=== PATIENT | female | born 1975 | race Caucasian/White ===

== ENCOUNTER → 2021-04-30 09:13 | Outpatient (CLI) | payer OTHER, SELFPAY ==
[2021-04-30 20:10] LABS: SARS-CoV-2 RNA PCR Negative
== END ==
PROVIDERS: Visit Provider Internal Medicine Gastroenterology
DX: Z01.812 Encounter for preprocedural laboratory examination (principal); Z20.822 Contact with and (suspected) exposure to COVID-19
CPT/HCPCS: C9803; U0003; U0005

== ENCOUNTER 2021-05-03 02:04 | Day surgery (SDC) | payer OTHER, SELFPAY ==
[2021-04-24 15:44] VITALS: BMI 36.9
--- NOTE | 2021-05-03 08:04 | P.PNAN_ITS ---
Anes - Initial Pre Proc Eval Procedure: Operation Date: 05/03/21 11:15 Proposed Procedures p Screening Colonoscopy - Tate Schmidt MD Date/Time: 05/03/21 08:04 Surgeon: Tate Schmidt MD Pre Op Diagnosis: family hx of colon ca Patient Data Age: 45 Gender: F Height: 1.66 m Weight: 102.3 kg Allergies Allergy/AdvReac Type Severity Reaction Status Date / Time tramadol Allergy Itching Verified 05/03/21 10:13 gluten AdvReac Unknown GI Verified 04/24/21 15:39 BEE STING Allergy Unknown FACIAL Uncoded 04/24/21 15:39 SWELLING Home Medications Medication Instructions Recorded Confirmed Type calcium carbonate [Oyster Shell 500 mg PO DAILY 04/24/21 04/24/21 History Calcium 500] levothyroxine 150 mcg PO DAILY 04/24/21 04/24/21 History mirtazapine 15 mg PO DAILY 04/24/21 04/24/21 History naproxen 500 mg PO DAILY 04/24/21 04/24/21 History sumatriptan succinate 100 mg PO DAILY 04/24/21 04/24/21 History triamcinolone acetonide 0.5 applic TOPICAL DAILY 04/24/21 04/24/21 History Patient hx anesthesia problems: none Family hx anesthesia problems: none Results Review: All pre-operative results and documents have been reviewed as part of the pre-operative evaluation. [facility] Past Medical History Medical History (Updated 05/03/21 @ 08:04 by Harry Shearer DO) Multiple sclerosis Surgical History Surgical History (Updated 05/03/21 @ 08:04 by Harry Shearer DO) History of tubal ligation Social History Social History Smoking status: Never smoker Alcohol intake: never Substance use: current Substance use type: marijuana Other substance usage details: medical marijuana daily for MS Living arrangements: with family Spiritual care concerns: No Anes - Eval Final PreProcedure Day of Procedure 05/03/21 08:04 Patient weight: obese Heart: regular rate and rhythm Lungs: clear to auscultation and normal air movement Airway: Mallampati scale class II Neurological: alert and oriented Last oral intake: >/= 8 hours ASA classification: III Emergent: no Anesthetic plan: proceed Anesthesia type and monitoring: general GIVS and standard monitoring Results Review: All pre-operative results and documents have been reviewed as part of the pre-operative evaluation. Informed Consent: The patient's anesthetic plan and its attendant risks and benefits were discussed with the patient/family/POA. Questions were solicited and answers provided to the satisfaction of the patient/family/POA.
[2021-05-03 10:15] VITALS: BMI 36.1
[2021-05-03 10:17] VITALS: BP 151/88; PULSE 71; RESP 16; TEMP 36.2; O2SAT 100
[2021-05-03] MEDS: LACTATED RINGERS 1,000 ML 150 ML IV CONT (10:18)
--- NOTE | 2021-05-03 10:46 | PM.HPGS ---
History of Present Illness History of Present Illness Consent: Risks, benefits, and alternatives have been discussed and questions answered. Patient agrees to proceed with procedure. Chief complaint: family hx of colon ca Narrative: Magy Maya is a 45 year old female here for screening colonoscopy, last one 2 years ago but she is taking a medication for multiple sclerosis that increases risk of malignancy, her doctor recommended for her to get frequent colonoscopies. Review of Systems Constitutional: Constitutional: Denies headache(s) and Denies weakness Eyes: Eyes: Denies blurry vision ENT: Reports Normal hearing present, Denies headache(s) and Denies neck pain Cardiovascular: Cardiovascular: Denies chest pain and Denies dyspnea Respiratory: Respiratory: Denies dyspnea Gastrointestinal: Gastrointestinal: Reports no additional gastrointestinal complaints Genitourinary: Genitourinary: Denies dysuria Musculoskeletal: Musculoskeletal: Denies neck pain Integumentary/Breasts: Skin/Breast: Denies dry skin Neurologic: Reports Normal hearing present, Denies headache(s) and Denies weakness Psychiatric: Psychiatric: Denies anxiety Endocrine: Endocrine: Denies change in body appearance Hematologic/Lymphatic: Hematologic/Lymphatic: Denies easy bleeding Allergic/Immunologic: Allergic/Immunologic: Denies urticaria PMFSH Past Medical History Medical History (Updated 05/03/21 @ 10:47 by Tate Schmidt MD) Colon cancer screening Multiple sclerosis Surgical History Surgical History (Updated 05/03/21 @ 08:04 by Harry Shearer DO) History of tubal ligation Social History Social History Smoking status: Never smoker Alcohol intake: never Substance use: current Substance use type: marijuana Other substance usage details: medical marijuana daily for MS Living arrangements: with family Spiritual care concerns: No Meds Home Medications and Allergies Home Medications Medication Instructions Recorded Confirmed Type calcium carbonate [Oyster Shell 500 mg PO DAILY 04/24/21 04/24/21 History Calcium 500] levothyroxine 150 mcg PO DAILY 04/24/21 04/24/21 History mirtazapine 15 mg PO DAILY 04/24/21 04/24/21 History naproxen 500 mg PO DAILY 04/24/21 04/24/21 History sumatriptan succinate 100 mg PO DAILY 04/24/21 04/24/21 History triamcinolone acetonide 0.5 applic TOPICAL DAILY 04/24/21 04/24/21 History Allergies Allergy/AdvReac Type Severity Reaction Status Date / Time tramadol Allergy Itching Verified 05/03/21 10:13 gluten AdvReac Unknown GI Verified 04/24/21 15:39 BEE STING Allergy Unknown FACIAL Uncoded 04/24/21 15:39 SWELLING Vital Signs Vital Signs - 24 hr 05/03/21 10:17 Temperature 97.1 F L Pulse Rate 71 Respiratory Rate 16 Blood Pressure 151/88 H Pulse Oximetry 100 Exam Const: General: comfortable and no acute distress HENMT: General nose exam: Normal nares present Eyes: General: appearance normal, both eyes and all related structures Neck: Neck: no JVD Resp: Auscultation: clear to auscultation bilaterally Cardio: Rate: regular rate Rhythm: regular rhythm GI: Inspection: non-distended GI Palp: Yes Soft to palpation Skin: General skin exam: normal color Neuro: General: gait normal Speech: normal speech Extrem: General: normal to inspection Psych: Mental Status: mental status grossly normal Assessment and Plan Assessment and plan (1) Multiple sclerosis: Code(s): G35 - Multiple sclerosis Status: Inactive (2) Colon cancer screening: Code(s): Z12.11 - Encounter for screening for malignant neoplasm of colon Status: Acute Assessment and Plan: colonoscopy
[2021-05-03 11:12] VITALS: BP 98/55; PULSE 66; RESP 21; O2SAT 93
[2021-05-03 11:22] VITALS: BP 105/62; PULSE 57; RESP 11; O2SAT 100
[2021-05-03 11:32] VITALS: BP 105/62; PULSE 58; RESP 14; O2SAT 100
== END 2021-05-03 11:47 | disposition home or self-care (01) ==
PROVIDERS: PCP Physician Assistant; Visit Provider Internal Medicine Gastroenterology
PROC: 0DJD8ZZ Inspection of Lower Intestinal Tract, Via Natural or Artificial Opening Endoscopic (ICD-10-PCS; CPT 45378; principal; 2021-05-03 11:15)
DX: Z12.11 Encounter for screening for malignant neoplasm of colon (principal); K63.5 Polyp of colon; K64.8 Other hemorrhoids; G35 Multiple sclerosis; F12.90 Cannabis use, unspecified, uncomplicated; E03.9 Hypothyroidism, unspecified; Z83.71 Family history of colonic polyps; E66.9 Obesity, unspecified; Z68.36 Body mass index [BMI] 36.0-36.9, adult
CPT/HCPCS: 45385; 88305; J2704; J7120

== ENCOUNTER 2022-07-02 14:43 | Outpatient (CLI) | payer OTHER, SELFPAY ==
--- NOTE | ~2022-07-02 | MM_ITS ---
EXAMINATION: MM screening [facility] BI w eugene HISTORY: Screening mammogram TECHNIQUE: Craniocaudal and mediolateral oblique 3-D tomosynthesis images were obtained and synthetic 2-D images were generated. CAD analysis was submitted and interpreted. COMPARISON: No prior mammogram is available for comparison at this institution. BREAST PARENCHYMAL COMPOSITION: There are scattered areas of fibroglandular density. FINDINGS: No suspicious mass, calcification, or architectural distortion are identified in either manuel ast to suggest malignancy. IMPRESSION: 1. No mammographic evidence of malignancy. 2. Recommend routine screening mammography in one year. BI-RADS Category 1: Negative Reviewed, dictated and finalized at location [facility]. [facility]
== END 2022-07-02 14:44 | disposition home or self-care (01) ==
LOC: ANHIMG 14:56
PROVIDERS: PCP Physician Assistant; Visit Provider Nurse Practitioner Obstetrics & Gynecology
DX: Z12.31 Encounter for screening mammogram for malignant neoplasm of breast (principal)
CPT/HCPCS: 77063; 77067

== ENCOUNTER 2023-08-04 01:19 | Day surgery (SDC) | payer OTHER, SELFPAY ==
[2023-07-22 13:33] VITALS: BMI 28.2
--- NOTE | 2023-07-31 10:09 | SUR.PREOP ---
Patient called regarding upcoming procedure. Reviewed preop instructions, appointment times, and procedure prep.
[2023-08-04 12:50] VITALS: BP 119/79; PULSE 71; RESP 16; TEMP 37.1; O2SAT 100
[2023-08-04] MEDS: LACTATED RINGERS 1,000 ML 150 ML IV CONT (12:58)
--- NOTE | 2023-08-04 13:03 | WPDANESEPPF ---
Anes - Initial Pre Proc Eval Procedure: Operation Date: 08/04/23 14:00 Proposed Procedures p Colonoscopy - Tate Schmitd MD Date/Time: 08/04/23 13:03 Surgeon: Tate Schmidt MD Pre Op Diagnosis: Personal History of colon polyps Patient Data Age: 48 Gender: F Height: 1.65 m Weight: 72.6 kg Last Vital Signs Temp 98.8 F 08/04/23 12:50 Pulse 71 08/04/23 12:50 Resp 16 08/04/23 12:50 BP 119/79 08/04/23 12:50 Pulse Ox 100 08/04/23 12:50 O2 Del Method Room Air 08/04/23 12:50 Allergies Allergy/AdvReac Type Severity Reaction Status Date / Time tramadol Allergy Itching Verified 08/04/23 12:48 gluten AdvReac Unknown GI Verified 08/04/23 12:48 BEE STING Allergy Unknown FACIAL Uncoded 08/04/23 12:48 SWELLING Home Medications Medication Instructions Recorded Confirmed Type calcium carbonate 500 mg calcium 500 mg PO DAILY 04/24/21 07/22/23 History (1,250 mg) tablet (Oyster Shell Calcium 500) levothyroxine 150 mcg tablet 150 mcg PO BID 04/24/21 07/22/23 History naproxen 500 mg tablet 500 mg PO DAILY 04/24/21 08/04/23 History triamcinolone acetonide 0.5 % 0.5 applic topical DAILY 04/24/21 07/22/23 History topical cream acetaminophen 300 mg-codeine 60 mg 1 tablet PO Q6-8H PRN Pain 07/22/23 08/04/23 History tablet baclofen 10 mg tablet 10 mg PO Q6H PRN Pain 07/22/23 07/22/23 History valacyclovir 500 mg tablet 500 mg PO DAILY 07/22/23 07/22/23 History Patient hx anesthesia problems: none Family hx anesthesia problems: none Results Review: All pre-operative results and documents have been reviewed as part of the pre-operative evaluation. [facility] Past Medical History Medical History (Updated 05/03/21 @ 10:47 by Tate Schmidt MD) Colon cancer screening Multiple sclerosis Surgical History Surgical History (Updated 05/03/21 @ 08:04 by Harry Shearer DO) History of tubal ligation Social History Social History Smoking status: Never smoker Alcohol intake: never Substance use: current Substance use type: marijuana Other substance usage details: SMOKES MARIJUANA, VAPES MARIJUANA, AND GUMMIES DAILY Living arrangements: alone Spiritual care concerns: No Anes - Eval Final PreProcedure Day of Procedure 08/04/23 13:03 Patient weight: normal Heart: regular rate and rhythm Lungs: clear to auscultation Airway: Mallampati scale class II Neurological: alert and oriented Last oral intake: >/= 8 hours ASA classification: III Emergent: no Anesthetic plan: proceed Anesthesia type and monitoring: general GIVS and standard monitoring Results Review: All pre-operative results and documents have been reviewed as part of the pre-operative evaluation. Informed Consent: The patient's anesthetic plan and its attendant risks and benefits were discussed with the patient/family/POA. Questions were solicited and answers provided to the satisfaction of the patient/family/POA.
--- NOTE | 2023-08-04 13:57 | PM.HPGS ---
History of Present Illness History of Present Illness Consent: Risks, benefits, and alternatives have been discussed and questions answered. Patient agrees to proceed with procedure. Chief complaint: Personal History of colon polyps Narrative: Magy Phelps is a 48 year old female here for colonoscopy last time in 2021 with polyp, she is taking a medication for multiple sclerosis that increases risk of malignancy, her doctor recommended for her to get frequent colonoscopies. Review of Systems Review of Systems: All systems reviewed & are unremarkable except as noted in HPI and below [facility] Past Medical History Medical History (Updated 08/04/23 @ 13:58 by Tate Schmidt MD) Colon cancer screening Colon polyp Multiple sclerosis Surgical History Surgical History (Updated 05/03/21 @ 08:04 by Harry Shearer DO) History of tubal ligation Social History Social History Smoking status: Never smoker Alcohol intake: never Substance use: current Substance use type: marijuana Other substance usage details: SMOKES MARIJUANA, VAPES MARIJUANA, AND GUMMIES DAILY Living arrangements: alone Spiritual care concerns: No Meds Home Medications and Allergies Home Medications Medication Instructions Recorded Confirmed Type calcium carbonate 500 mg calcium 500 mg PO DAILY 04/24/21 07/22/23 History (1,250 mg) tablet (Oyster Shell Calcium 500) levothyroxine 150 mcg tablet 150 mcg PO BID 04/24/21 07/22/23 History naproxen 500 mg tablet 500 mg PO DAILY 04/24/21 08/04/23 History triamcinolone acetonide 0.5 % 0.5 applic topical DAILY 04/24/21 07/22/23 History topical cream acetaminophen 300 mg-codeine 60 mg 1 tablet PO Q6-8H PRN Pain 07/22/23 08/04/23 History tablet baclofen 10 mg tablet 10 mg PO Q6H PRN Pain 07/22/23 07/22/23 History valacyclovir 500 mg tablet 500 mg PO DAILY 07/22/23 07/22/23 History Allergies Allergy/AdvReac Type Severity Reaction Status Date / Time tramadol Allergy Itching Verified 08/04/23 12:48 gluten AdvReac Unknown GI Verified 08/04/23 12:48 BEE STING Allergy Unknown FACIAL Uncoded 08/04/23 12:48 SWELLING Vital Signs Vital Signs - 24 hr 08/04/23 12:50 Temperature 98.8 F Pulse Rate 71 Respiratory Rate 16 Blood Pressure 119/79 Pulse Oximetry 100 Oxygen Delivery Room Air Exam Const: General: comfortable and no acute distress HENMT: Face/Nose/Sinus: Normal nares present Eyes: General: appearance normal, both eyes and all related structures Neck: Neck: no JVD Resp: Auscultation: clear to auscultation bilaterally Cardio: Rate: regular rate Rhythm: regular rhythm GI: Inspection: non-distended GI Palp: Yes Soft to palpation Skin: General skin exam: normal color Neuro: General: gait normal Speech: normal speech Extrem: General: normal to inspection Psych: Mental Status: mental status grossly normal Assessment and Plan Assessment and plan (1) Colon polyp: Code(s): K63.5 - Polyp of colon Status: Acute Assessment and Plan: colonoscopy (2) Multiple sclerosis: Code(s): G35 - Multiple sclerosis Status: Acute
[2023-08-04 14:16] VITALS: BP 106/63; PULSE 66; RESP 27; O2SAT 100
[2023-08-04 14:26] VITALS: BP 107/67; PULSE 63; RESP 17; O2SAT 100
[2023-08-04 14:36] VITALS: BP 123/73; PULSE 57; RESP 17; O2SAT 100
== END 2023-08-04 14:39 | disposition home or self-care (01) ==
PROVIDERS: PCP Physician Assistant; Visit Provider Internal Medicine Gastroenterology
PROC: 0DJD8ZZ Inspection of Lower Intestinal Tract, Via Natural or Artificial Opening Endoscopic (ICD-10-PCS; CPT 45378; principal; 2023-08-04 14:00)
DX: Z09 Encounter for follow-up examination after completed treatment for conditions other than malignant neoplasm (principal); K64.8 Other hemorrhoids; Z86.010 Personal history of colon polyps; G35 Multiple sclerosis; F12.90 Cannabis use, unspecified, uncomplicated
CPT/HCPCS: 45378; J2704; J7120

== ENCOUNTER 2024-03-03 12:18 | Emergency (ER) | payer OTHER, SELFPAY ==
--- NOTE | ~2024-03-03 | CT_ITS ---
EXAMINATION: CT abdomen pelvis wo con DATE: 03/03/2024 13:49 INDICATION: Lower abdominal pain. Hematuria. Nausea and vomiting. TECHNIQUE: Computed tomography (CT) of the abdomen and pelvis was performed without intravenous contr ast. Automated exposure control and iterative reconstruction technique were employed. The dose-length product was 465.71 mGy-cm. COMPARISON: None. FINDINGS: The visualized portions of the lung bases demonstrate a 5 mm nodule in right lower lobe, li victorino benign. No pleural effusion. The heart size is normal. No pericardial effusion. The liver, gallb ladder, pancreas, adrenal glands, and kidneys are normal. There is no urolithiasis. The gallbladder i s absent. There are no dilated loops of bowel. The appendix is normal. There are no pathologically en larged lymph nodes. There is no free intraperitoneal fluid. There is moderate lumbar spondylosis. The re is mild chronic anterior wedging of T12-L1 vertebral bodies. IMPRESSION: 1. No etiology for the patient's symptoms. Reviewed, dictated and finalized at location A. [employer]
--- NOTE | ~2024-03-03 | XR_ITS ---
EXAMINATION: XR chest 2V 03/03/2024 13:35 INDICATION: [employer] exposure PROCEDURE: 2 view chest COMPARISON: No prior studies for comparison. FINDINGS: The lungs are clear. The cardiomediastinal silhouette is within normal limits. There are no pleural effusions. There is no pneumothorax suspected. IMPRESSION: 1: NO ACUTE CARDIOPULMONARY DISEASE. Reviewed, dictated and finalized at location B. [employer]
[2024-03-03 13:01] LABS: BEDSIDEPREGUCG Negative (Negative)
[2024-03-03 13:08] LABS: Bacteria Urine None Seen /hpf; Non Pathogenic Casts 0-2; RBC Urine >100 /hpf (0-2); Squamous Epithelial Cell Urine None Seen /hpf (Few); WBC Urine >100 /hpf (0-3)
[2024-03-03 13:15] LABS: Alveolar/Arterial O2 Gradient 13.6 mmHg; Base Excess ABG -3.6 mEq/l (+/-2.0); Carboxyhemoglobin 1.8 % THb (0-2.0); Fractional Inspired Oxygen 21 %; HCO3 ABG 20.1 mEq/l (22.0-26.0); Methemoglobin ABG 0.3 %THb (0-1.5); Oxygen Content ABG 17.5 %vol (16.0-22.0); Oxygen Saturation ABG 97.5 % (95.0-100.0); Oxyhemoglobin 94.9 % THb (90.0-100.0); PCO2 ABG 32.5 mmHg (35.0-45.0); PO2 ABG 97.2 mmHg (80.0-100.0); PO2 FiO2 Ratio Arterial Blood 4.63 %
[2024-03-03 13:16] LABS: Site Drawn RIGHT BRACHIAL
[2024-03-03 13:21] LABS: Add Urine Microscopic? YES; Appearance Urine Turbid (Clear); Bilirubin Urine Negative (Negative); Blood Urine 3+ (Negative); Color Urine Orange (Yellow); Glucose Urine UA Negative (Negative); Ketones Urine Negative (Negative); Leukocyte Esterase Ur 3+ LEU/UL (Negative); Nitrate Urine Negative (Negative); Protein Urine 2+ mg/dL (Negative); Specific Grav Ur 1.009 (1.001-1.035); Urobilinogen Urine 0.2 mg/dL (<2.0)
[2024-03-03 13:32] LABS: Basophils Absolute Auto 0.1 K/mm3 (0.0-0.1); Basophils Percent Auto 0.9 % (0.2-1.2); Eosinophils Absolute Auto 0.2 K/mm3 (0-0.3); Eosinophils Percent Auto 1.7 % (0-4.4); Immature Granulocyte Absolute 0.02 K/mm3 (0.00-0.031); Immature Granulocyte Percent A 0.2 % (0-0.5); Lymphocytes Absolute Auto 1.67 K/mm3 (0.9-3.2); Lymphocytes Percent Auto 14.7 % (18.3-44.2); Mean Corpuscular HGB Conc 32.5 g/dl (32-36); Mean Corpuscular Hemoglobin 29.8 pg (26-34); Mean Corpuscular Volume 91.7 fl (80-100); Mean Platelet Volume 9.8 fl (7.4-10.4); Monocytes Absolute Auto 0.6 K/mm3 (0.1-0.6); Monocytes Percent Auto 5.3 % (2.6-8.5); Neutrophils Absolute Auto 8.8 K/mm3 (1.3-6.7); Neutrophils Percent Auto 77.2 % (45.5-73.1); Platelet Count Result 341 k/mm3 (150-375); Red Blood Count 4.36 M/mm3 (4.2-5.4); Red Cell Distribution Width 12.7 % (11.5-14.5); White Blood Count 11.3 K/mm3 (4.5-10.0)
--- NOTE | 2024-03-03 13:34 | ED.GENADULT ---
HPI - General Adult General Chief complaint: Unspecified Stated complaint: concern for natural gas poisoning, urinating blood Time Seen by Provider: 03/03/24 12:43 Source: patient Mode of arrival: ambulatory Limitations: no limitations History of Present Illness HPI narrative: Patient is a 48-year-old female, with PMH of multiple sclerosis, who presents to the ED with report of hematuria and headache. Patient reports she woke up this morning around 330 this morning with dysuria, gross hematuria. She notes history of UTIs, denies hx of kidney stones. does have some pain throughout her lower abdomen. Denies significant back pain. Saw her primary care doctor today and was referred to the ED for further evaluation. Patient also reports over the last couple of days, she was found to have a natural gas leak in her house. She has been having headaches intermittently over the last 1 week. She took Tylenol and naproxen this morning for the headache. Does still complain of headache and mild lightheadedness currently. Reports mild nausea. Denies vomiting. Denies vision changes, focal weakness or numbness, SOB. Related Data Home Medications Medication Instructions Recorded Confirmed calcium carbonate (Oyster Shell 500 mg PO DAILY 04/24/21 07/22/23 Calcium 500) levothyroxine 150 mcg tablet 150 mcg PO BID 04/24/21 07/22/23 naproxen 500 mg tablet 500 mg PO DAILY 04/24/21 08/04/23 triamcinolone acetonide 0.5 % 0.5 applic topical DAILY 04/24/21 07/22/23 topical cream acetaminophen 300 mg-codeine 60 mg 1 tablet PO Q6-8H PRN Pain 07/22/23 08/04/23 tablet baclofen 10 mg tablet 10 mg PO Q6H PRN Pain 07/22/23 07/22/23 valacyclovir 500 mg tablet 500 mg PO DAILY 07/22/23 07/22/23 Allergies Allergy/AdvReac Type Severity Reaction Status Date / Time tramadol Allergy Itching Verified 08/04/23 12:48 gluten AdvReac Unknown GI Verified 08/04/23 12:48 BEE STING Allergy Unknown FACIAL Uncoded 08/04/23 12:48 SWELLING Review of Systems Review of Systems: All systems reviewed & are unremarkable except as noted in HPI. All systems reviewed & are unremarkable except as noted in HPI and below PMFSH Past Medical History Medical History Colon cancer screening Colon polyp Multiple sclerosis Surgical History Surgical History History of tubal ligation Social History Social History Smoking status: Never smoker Alcohol intake: never Substance use: current Substance use type: marijuana Other substance usage details: SMOKES MARIJUANA, VAPES MARIJUANA, AND GUMMIES DAILY Living arrangements: alone Spiritual care concerns: No Exam Narrative: GENERAL: Well appearing, well-nourished, non-toxic, in no acute distress. HEAD: Normocephalic, atraumatic. RESPIRATORY: Airway patent, respirations nonlabored. Clear to auscultation bilaterally, no rales, rhonchi, wheezing. CARDIOVASCULAR: Regular rate and rhythm without murmurs, rubs, or gallops. ABDOMINAL: Soft, mild tenderness to palpation in lower abdomen, nondistended. Normoactive BS. No CVA tenderness to palpation. MUSCULOSKELETAL: Moves all extremities. No gross deformities. SKIN: Warm, dry, normal color. NEURO: A&O X3. Speech clear. Cranial nerves II-XII grossly intact. Steady gait. No ataxic movements. No focal deficits. PSYCHIATRIC: Appropriate mood and affect. Normal interaction. Medical Decision Making MDM Narrative Medical decision making narrative: Patient presented to ED with hematuria and headaches. Concerned for UTI and natural gas exposure. Vital signs are stable upon arrival. Patient is in no acute distress. No focal neurologic deficits. ABG was obtained and reassuring - normal oxyhemoglobin, carboxyhemoglobin, methemoglobin. CXR clear. Will give migraine cocktail. Basic laboratory studies showing leukocytosis of 11.3. Labs are otherwise unremarkable. Urine consistent with infection. Sent for culture. Given dose of ceftriaxone in the ED. CT scan of abdomen /pelvis was obtained and unremarkable. No ureterolithiasis or evidence of pyelonephritis. Discussed lab and imaging findings with patient. She is feeling better supportive therapy. Headache improved after migraine cocktail. Feel she is safe for discharge home at this time. Will discharge on Keflex. discussed further management of headaches/ migraines at home. Given return precautions. She agrees with plan. Discharged in stable condition. Medical Records Medical records reviewed: Yes I reviewed the external patient's medical records. Lab Data Lab results reviewed: Yes I reviewed the patient's lab results. 03/03/24 13:25 03/03/24 13:25 Labs: Lab Results 03/03/24 03/03/24 03/03/24 Range/Units 12:57 12:58 13:10 WBC (4.5-10.0) K/mm3 RBC (4.2-5.4) M/mm3 Hgb (12.0-15.0) g/dL Hct (37.0-47.0) % MCV (80-100) fl MCH (26-34) pg MCHC (32-36) g/dl RDW (11.5-14.5) % Plt Count (150-375) k/mm3 MPV (7.4-10.4) fl Immature Gran % (Auto) (0-0.5) % Neut % (Auto) (45.5-73.1) % Lymph % (Auto) (18.3-44.2) % [place] % (Auto) (2.6-8.5) % Eos % (Auto) (0-4.4) % Baso % (Auto) (0.2-1.2) % Lymph # (Auto) (0.9-3.2) K/mm3 [place] # (Auto) (0.1-0.6) K/mm3 Eos # (Auto) (0-0.3) K/mm3 Baso # (Auto) (0.0-0.1) K/mm3 Abs Immat Gran (auto) (0.00-0.031) K/mm3 Absolute Neuts (auto) (1.3-6.7) K/mm3 Absolute Nucleated RBC (0.0-0.012) K/mm3 Nucleated RBC % (0.0-0.2) % Methemoglobin 0.3 (0-1.5) %THb Sodium (137-145) mmol/L Potassium (3.4-5.0) mmol/L Chloride (98-107) mmol/L Carbon Dioxide (22-30) mmol/L Anion Gap (4-12) mmol/L BUN (7-17) mg/dL Creatinine (0.7-1.0) mg/dL Estim Creat Clear Calc Estimated GFR (59 - ) Glucose (65-110) mg/dL Calcium (8.4-10.2) mg/dL Total Bilirubin (0.2-1.3) mg/dL AST (14-36) U/L ALT (6-35) U/L Alkaline Phosphatase (38-126) U/L Total Protein (6.3-8.2) g/dL Albumin (3.5-5.1) g/dL Urine Color Isabella H (Yellow) Urine Appearance Turbid H (Clear) Urine pH 6.0 (5.0-9.0) Ur Specific [place] 1.009 (1.001-1.035) Urine Protein 2+ H (Negative) mg/dL Urine Glucose (UA) Negative (Negative) mg/dL Urine Ketones Negative (Negative) mg/dL Ur Blood (Man) 3+ H (Negative) Urine Nitrate Negative (Negative) Urine Bilirubin Negative (Negative) Urine Urobilinogen 0.2 (<2.0) mg/dL Leukocyte Esterase Rfl 3+ H (Negative) DOYLE/UL Urine RBC >100 H (0-2) /hpf Urine WBC >100 H (0-3) /hpf Ur Squamous Epith Cells None seen (Few) /hpf Urine Bacteria None seen /hpf Urine Casts 0-2 POC Urine HCG, Qual Negative (Negative) 03/03/24 Range/Units 13:25 WBC 11.3 H (4.5-10.0) K/mm3 RBC 4.36 (4.2-5.4) M/mm3 Hgb 13.0 (12.0-15.0) g/dL Hct 40.0 (37.0-47.0) % MCV 91.7 (80-100) fl MCH 29.8 (26-34) pg MCHC 32.5 (32-36) g/dl RDW 12.7 (11.5-14.5) % Plt Count 341 (150-375) k/mm3 MPV 9.8 (7.4-10.4) fl Immature Gran % (Auto) 0.2 (0-0.5) % Neut % (Auto) 77.2 H (45.5-73.1) % Lymph % (Auto) 14.7 L (18.3-44.2) % [place] % (Auto) 5.3 (2.6-8.5) % Eos % (Auto) 1.7 (0-4.4) % Baso % (Auto) 0.9 (0.2-1.2) % Lymph # (Auto) 1.67 (0.9-3.2) K/mm3 [place] # (Auto) 0.6 (0.1-0.6) K/mm3 Eos # (Auto) 0.2 (0-0.3) K/mm3 Baso # (Auto) 0.1 (0.0-0.1) K/mm3 Abs Immat Gran (auto) 0.02 (0.00-0.031) K/mm3 Absolute Neuts (auto) 8.8 H (1.3-6.7) K/mm3 Absolute Nucleated RBC 0.000 (0.0-0.012) K/mm3 Nucleated RBC % 0.0 (0.0-0.2) % Methemoglobin (0-1.5) %THb Sodium 137 (137-145) mmol/L Potassium 3.8 (3.4-5.0) mmol/L Chloride 105 (98-107) mmol/L Carbon Dioxide 28 (22-30) mmol/L Anion Gap 4 (4-12) mmol/L BUN 21 H (7-17) mg/dL Creatinine 0.70 (0.7-1.0) mg/dL Estim Creat Clear Calc Not Reportable Estimated GFR > 60 (59 - ) Glucose 96 (65-110) mg/dL Calcium 8.9 (8.4-10.2) mg/dL Total Bilirubin 0.5 (0.2-1.3) mg/dL AST 28 (14-36) U/L ALT 22 (6-35) U/L Alkaline Phosphatase 46 (38-126) U/L Total Protein 7.0 (6.3-8.2) g/dL Albumin 4.1 (3.5-5.1) g/dL Urine Color (Yellow) Urine Appearance (Clear) Urine pH (5.0-9.0) Ur Specific [place] (1.001-1.035) Urine Protein (Negative) mg/dL Urine Glucose (UA) (Negative) mg/dL Urine Ketones (Negative) mg/dL Ur Blood (Man) (Negative) Urine Nitrate (Negative) Urine Bilirubin (Negative) Urine Urobilinogen (<2.0) mg/dL Leukocyte Esterase Rfl (Negative) DOYLE/UL Urine RBC (0-2) /hpf Urine WBC (0-3) /hpf Ur Squamous Epith Cells (Few) /hpf Urine Bacteria /hpf Urine Casts POC Urine HCG, Qual (Negative) ABG Data ABG results: 03/03/24 13:10 Puncture Site Right brachial ABG pH 7.410 ABG pCO2 32.5 L ABG pO2 97.2 ABG PO2/FiO2 Ratio 4.63 ABG HCO3 20.1 L ABG O2 Saturation 97.5 ABG O2 Content 17.5 ABG Base Excess -3.6 A-a Gradient 13.6 Oxyhemoglobin 94.9 Carboxyhemoglobin 1.8 Reduced Hemoglobin 3.0 Total Hemoglobin 13.0 O2 Delivery Device Not Reportable O2 Liters/Min Not Reportable FiO2 21 Attestation: I personally reviewed and interpreted this ABG as follows: Imaging Data Attestation: I personally reviewed and interpreted this imaging study as follows: Radiologist's impression: ITS Impressions Chest X-Ray 03/03/24 13:38 IMPRESSION: 1: NO ACUTE CARDIOPULMONARY DISEASE. Abdomen/Pelvis CT 03/03/24 13:56 IMPRESSION: 1. No etiology for the patient's symptoms. Discharge Plan Discharge Clinical Impression: Exposure to natural gas UTI (urinary tract infection) Qualifiers: Urinary tract infection type: acute cystitis Hematuria presence: with hematuria Qualified Code(s): N30.01 - Acute cystitis with hematuria Headache Qualifiers: Headache type: unspecified Headache chronicity pattern: acute headache Intractability: not intractable Qualified Code(s): R51.9 - Headache, unspecified Patient Disposition: Home, Self-Care Condition: Stable Instructions: Antibiotic Form, Migraine Headache (ED), Acute Headache (ED) Additional Instructions: Your workup here was reassuring. You are being diagnosed with a urinary tract infection. Take antibiotics as prescribed. Stay well hydrated. Continue Tylenol and ibuprofen as needed for headaches or discomfort. Zofran as needed for nausea. Recommend getting plenty of rest, low light/low stimulus environment. Follow-up with your primary care doctor for further evaluation. Return to the ED if you experience worsening or severe pain, unable to keep down food or drink, difficulty urinating, persistent fevers, severe dizziness, vision changes, numbness or weakness of arm or leg, or any other symptoms of concern. Prescriptions: New cephalexin 500 mg capsule 500 mg PO Q6H 7 Days Qty: 28 0RF ondansetron 4 mg tablet,disintegrating 4 mg PO Q8H PRN (Reason: nausea and vomiting) Qty: 15 0RF No Action triamcinolone acetonide 0.5 % cream 0.5 applic TOPICAL DAILY calcium carbonate [Oyster Shell Calcium 500] 500 mg calcium (1,250 mg) tablet 500 mg PO DAILY levothyroxine 150 mcg tablet 150 mcg PO BID naproxen 500 mg tablet 500 mg PO DAILY valacyclovir 500 mg tablet 500 mg PO DAILY baclofen 10 mg tablet 10 mg PO Q6H PRN (Reason: Pain) acetaminophen-codeine 300-60 mg tablet 1 tablet PO Q6-8H PRN (Reason: Pain) Follow-up/Referrals: Estee,MARILY Gregory [Primary Care Provider] - Time of Disposition: 14:13
[2024-03-03] MEDS: ACETAMINOPHEN 500 MG TABLET 1000 MG PO (13:50)
[2024-03-03] MEDS: diphenhydrAMINE HCl INJ 50 MG/ML VIAL 25 MG IV PUSH (13:51)
[2024-03-03] MEDS: METOCLOPRAMIDE HCL INJ 10 MG/2 ML VIAL IV PUSH (13:51)
[2024-03-03] MEDS: SODIUM CHLORIDE 0.9% IV 1,000 ML 999 ML IV CONT (13:52)
[2024-03-03 13:55] LABS: Alanine Aminotransferase 22 U/L (6-35); Albumin Level 4.1 g/dL (3.5-5.1); Alkaline Phosphatase 46 U/L (38-126); Anion Gap 4 mmol/L (4-12); Aspartate Amino Transferase 28 U/L (14-36); Bilirubin,Total 0.5 mg/dL (0.2-1.3); Blood Urea Nitrogen 21 mg/dL (7-17); Calcium 8.9 mg/dL (8.4-10.2); Carbon Dioxide 28 mmol/L (22-30); Chloride 105 mmol/L (98-107); Estimated Glomerular Filt Rate > 60; Glucose 96 mg/dL (65-110); Potassium 3.8 mmol/L (3.4-5.0); Sodium 137 mmol/L (137-145)
== END 2024-03-03 14:47 | disposition home or self-care (01) ==
PROVIDERS: Emergency Provider Physician Assistant; PCP Physician Assistant
DX: N30.01 Acute cystitis with hematuria (principal); R51.9 Headache, unspecified; Z77.098 Contact with and (suspected) exposure to other hazardous, chiefly nonmedicinal, chemicals; G35 Multiple sclerosis; Z86.0100 Personal history of colon polyps, unspecified
CPT/HCPCS: 36415; 36600; 71046; 74176; 80053; 81001; 81025; 82375; 82805; 83050; 85018; 85025; 87086; 96365; 96375; 99284; A9270; J0696; J1200; J2765; J7030

== ENCOUNTER 2024-06-30 15:40 | Outpatient (CLI) | payer OTHER, SELFPAY ==
--- NOTE | ~2024-06-30 | US_ITS ---
EXAM: RENAL ULTRASOUND HISTORY: renal colic COMPARISON: Reference was made to a CT examination of the abdomen and pelvis performed 03/03/2024 FINDINGS: RIGHT KIDNEY: 12.4 x 4.7 x 5.4 cm. The parenchyma of the right kidney is unremarkable in echogenicity. No hydronephrosis or bulky renal calculi. LEFT KIDNEY: 12.9 x 5.4 x 4.5 cm No hydronephrosis or renal calculi. The parenchyma of the left kidney is unremarkable in echogenicity. BLADDER: Distended, and unremarkable. Despite prolonged interrogation, neither ureteral jet was visua lized. IMPRESSION: No hydronephrosis or renal calculi. No findings suggesting medical renal disease. Reviewed, dictated and finalized at location A. R CONTROL STATION ENGINEER
--- OUTSIDE RECORDS SUMMARY | 2024-06-30 16:44 | XMS_ITS | Data Portability ---
Author Organization [facility] [place] Address [address] [place] [address] [place] [address] Care Team Providers Care Cafeteria Operator Name Role Phone CALDERON GODOY Primary Care Provider Assessment Encounter Date Assessment Date Assessment LastModified by Organization Details LastModified Time 04/18/2024 04/18/2024 Annual gynecological exam performed. Patient will come back in a year unless there are new symptoms. [email or web address] Not available 04/18/2024 09:33:59 Plan of Treatment Reminders Order Date Submit Date Provider Last Modified By Organization Details Last Modified Time Details Appointments None recorded. Lab urinalysis, dipstick 2023 024 [facility], [address], [address], [place], [address], 4 10:15:27 urinalysis, dipstick 2023 024 [email or web address] 1 [address], [address], [place], [address], 4 14:55:55 culture, urine 2023 024 [facility] (Lab), [address], [place], [address], 4 07:18:45 unlisted lab - women's health swab plus, TERRI 2023 024 [facility] (Lab), [address], [place], [address], 4 07:18:44 Referral urologist referral 2023 [facility], [address] [facility], Rahul [facility], [place], [address], 4 04:02:24 Procedures None recorded. Surgeries None recorded. Imaging US, pelvis [address], [address], [place], [address], 20:39:17 US, transvagina l [address], [address], [address], [place], [address], 20:39:17 MAMMO, screening, digital, bilateral 2023 [email or web address] Not available 11:30:11 US, pelvis, complete 2023 [facility], [address], [address], [place], [address], 4 04:02:24 Medication Orders Cipro 500 mg tablet 2023 [facility], [address] [place], [address], 4 09:35:32 Diflucan 150 mg tablet 2023 [facility], [address] [place], [address], 4 09:35:36 metronidazo le 500 mg tablet 2023 [facility], [address] [place], [address], 4 10:41:43 Diflucan 150 mg tablet [email or web address] [facility], [address] [place] [address], [address], 09:35:25 Patient TargetsNo targets recorded. Patient InstructionsNo instructions recorded. Reason for Referral Urologist Referral for Urina ry symptoms Referring Physician: Elsy Auguste, CUSTOMER OPERATIONS REPRESENTATIVE, Encounter Date: 04/18/2024 Results Created Date Observation Date Name Description Value Unit Range Abnormal Flag Note LastModifiedBy Organization Detail LastModifiedTime 02/12/2002/12/2024 [facility], TERRI bacterial vaginosis (bv), tma Negati ve negati ve Not Available [facility] (Lab) [address] [facility], [place], [address], 02/14/2024 07:18:44 02/12/2002/12/2024 WOMEN 'S HEALT H SWAB PLUS, TERRI jose maria species, tma Positi ve negati ve abnormal Not Available [facility] (Lab) [address] [place], [address], 02/14/2024 07:18:44 02/12/20 24 02/12/2024 [facility] jose maria glabrata, tma Negati ve negati ve Not Available [facility] (Lab) [address] [place], [address], 02/14/2024 07:18:44 02/12/20 24 02/12/2024 [facility] TERRI trichomonas vaginalis, tma Negati ve negati ve Not Available [facility] (Lab) [address] [place], [address], 02/14/2024 07:18:44 02/12/20 24 02/12/2024 [facility] TERRI chlamydia trachomatis, PCR Negati ve negati ve Not Available [facility] (Lab) [address] [place], [address], 02/14/2024 07:18:44 02/12/20 24 02/12/2024 WOMEN 'S HEALT H SWAB PLUS, TERRI neisseria gonorrhoeae, PCR Negati ve negati ve Bacte rial vagin osis detec ts the follo wing bacte charli assoc iated with bacte rial vagin osis (BV): Lacto bacil johanna (L. gasse ri, L. crisp atus and L. jense roma), Gardn erell a vagin nathalie, and Atopo bium vagin ae. A singl e quali tativ e resul t is repor corinne base on instr ument softw are to deter mine BV posit nba or negat nba statu s. The Angelina da speci es group tests for C. albic ans, C. tropi calis , C. parap azalia is, C. dubli niens is. Testi ng is perfo rmed using the Trans cript ion Media corinne Ampli ficat ion metho d. Tests for Angelina da glabr ander, Trich omona s vagin nathalie, Chlam ydia trach omati s, and Neiss eria gonor rhoea e are also inclu ded in this panel . Not Available [facility] (Lab) [address] [facility], [place], [address], 02/14/2024 07:18:44 02/12/20 24 02/12/2024 CULTU RE: URINE result report SEE RESULT S BELOW Test: Cultu re: Urine Speci men Sourc e: Urine - Clean Catch Speci men Type: Urine Speci men Date: 02/11 1511 Resul t Date: 02/13 0615 Resul t Statu s: Final resul t Abnor mal: No Resul ting Lab: [facility] [address] [facility] [address] Tel: CULTU RE ----- ----- ----- --- No growt h in 1 day (dete ction level of 10,00 0 colon ies / ml.) Not Available [facility] (Lab) [address], [place], [address], 02/14/2024 07:18:45 02/12/2002/12/2024 urina lysis , dipst ick Leukocytes trace Not Available [facility] ishaan [address], [place], [address], 02/12/2024 14:51:55 02/12/2002/12/2024 urina lysis , dipst ick Nitrite normal Not Available [facility] [address], [place], [address], 02/12/2024 14:51:55 02/12/2002/12/2024 urina lysis , dipst ick Urobilinogen normal Not Available [facility] eris [address], [place], [address], 02/12/2024 14:51:55 02/12/2002/12/2024 urina lysis , dipst ick Protein trace Not Available [facility] [address], [place], [address], 02/12/2024 14:51:55 02/12/2002/12/2024 urina lysis , dipst ick pH 5 Not Available [facility] [address], [place], [address], 02/12/2024 14:51:55 02/12/2002/12/2024 urina lysis , dipst ick Specific [place] 1.010 Not Available [facility] [address], [place], [address], 02/12/2024 14:51:55 02/12/2002/12/2024 urina lysis , dipst ick Ketone normal Not Available [facility] [address], [place], [address], 02/12/2024 14:51:55 02/12/20 24 02/12/2024 urina lysis , dipst ick Bilirubin normal Not Available [facility] [address], [place], [address], 02/12/2024 14:51:55 02/12/20 24 02/12/2024 urina lysis , dipst ick Glucose normal Not Available [facility] [address], [place], [address], 02/12/2024 14:51:55 02/12/2002/12/2024 urina lysis , dipst ick Appearance normal Not Available [facility] [address], [place], [address], 02/12/2024 14:51:55 02/12/20 24 02/12/2024 urina lysis , dipst ick Color normal Not Available [facility] [address], [place], [address], 02/12/2024 14:51:55 03/18/20 24 03/18/2024 CULTU RE: URINE result report SEE RESULT S BELOW Test: Cultu re: Urine Speci men Sourc e: Urine - Clean Catch Speci men Type: Urine Speci men Date: 03/18 1030 Resul t Date: 03/19 2251 Resul t Statu s: Final resul t Abnor mal: No Resul ting Lab: [facility] [address] [facility] [address] Tel: CULTU RE ----- ----- ----- --- No growt h in 1 day (dete ction level of 10,00 0 colon ies / ml.) Not Available [facility] (Lab) [address] [facility], [place], [address], 03/19/2024 23:54:26 03/18/20 24 03/18/2024 urina lysis , dipst ick Leukocytes trace Not Available [facility] ishaan [address], [place], [address], 03/18/2024 10:15:03 03/18/20 24 03/18/2024 urina lysis , dipst ick Protein trace Not Available [facility] [address], [place], [address], 03/18/2024 10:15:03 03/18/20 24 03/18/2024 urina lysis , dipst ick pH 5 Not Available [facility] [address], [place], [address], 03/18/2024 10:15:03 03/18/20 24 03/18/2024 urina lysis , dipst ick Blood ++ Not Available [facility] [address], [place], [address], 03/18/2024 10:15:03 03/18/20 24 03/18/2024 urina lysis , dipst ick Specific [place] 1.005 Not Available [facility] [address], [place], [address], 03/18/2024 10:15:03 04/18/20 24 04/18/2024 IMAGE GUIDE D PAP AND HPV REGAR DLESS image guided Pap, HPV regardless of Pap result SEE RESULT S BELOW CASE REPOR T: Cytol ogy Gynec ologi alona Repor t Case: [id number] Autho risusana g Provi azucena: Elsy Auguste, JUDY Colle cted: 04/18 1604 Order ing Locat ion: [place] [facility] Recei jenni: 04/19 0839 First Scree n: Mary West ret, CT Speci men: Scree homero Pap - Image d, Cervi x STATE MENT OF ADEQU ACY: Satis facto ry for evalu ation Trans forma tion zone compo nent absen t ----- ----- ----- ----- ----- ----- ----- ----- ----- ----- ----- ----- ----- ----- ----- ----- ----- ---- FINAL DIAGN OSIS: Negat nba for Intra epith elial Brittney cleary or Alistair duval (NIL) . Elect paxton dawkins d by CATARINA Mann ret on 025 at 1619 SPEECH THERAPIST ----- ----- ----- ----- ----- ----- ----- ----- ----- ----- ----- ----- ----- ----- ----- ----- ----- ---- HPV RESUL TS: HPV mRNA E6/E7 : No HPV mRNA Detec corinne NOTE: This high risk HPV mRNA assay detec ts fourt een high- risk HPV types (16, 18, 31, 33, 35, 39, 45, 51, 52, 56, 58, 59, 66, 68) witho ut diffe renti ation . COMME NT: This speci men was revie wed by a Cytot echno logis t and/o r Patho logis t (as indic ated in this repor t) after evalu ation using the Thinp rep Imagi ng Syste m. CLINI ALONA INFOR MATIO N: Menst rual Statu s: LMP (if appli cable ): Clini alona Histo ry/Pr eviou s Pap: Type of Neopl ayad (if appli cable ): Signi lane t Clini alona Findi ngs: Other Histo ry: Hormo haven (if appli cable ): PAP EDUCA LANIE L NOTE: The Pap Test is a scree homero test with an inher ent false negat nba rate. Liqui d-bas ed sampl ing may decre ase, but will not elimi jose, false negat nba resul ts. A negat nba resul t does not precl ude the prese nce and/o r devel opmen t of disea se, since the prese nce of abnor mal cells in the sampl e depen ds on the locat ion of the lesio n and sampl ing techn ique. Elizabeth nued regul ar scree homero is the best metho d of cance r preve ntion . If repor corinne cytol ogic findi ng do not corre late with physi alona and/o r histo rical findi ngs, furth er inves tigat ion is recom oanh d, as clini regina warrasael nted. Not Available [facility] (Lab) [address] [facility], [place], [address], 05/02/2024 17:23:08 04/18/20 24 04/18/2024 TRICH OMONA S VAGIN NATHALIE (RRNA ) trichomonas vaginalis ribosomal RNA (rrna) Negati ve negati ve Not Available [facility] (Lab) [address] [facility], [place], [address], 05/02/2024 17:23:09 04/18/20 24 04/18/2024 CT/GC (PRIYANK) , THINP REP VIAL chlamydia trachomatis, PCR Negati ve negati ve Not Available [facility] (Lab) [address] [facility], [place], [address], 05/02/2024 17:23:09 04/18/20 24 04/18/2024 CT/GC (PRIYANK) , THINP REP VIAL neisseria gonorrhoeae, PCR Negati ve negati ve Not Available [facility] (Lab) [address] [facility], [place], [address], 05/02/2024 17:23:09 04/21/20 24 04/21/2024 US, pelvi s No observ ation record ed. [email or web address] [facility] [address], [place], [address], 04/21/2024 13:46:17 04/21/20 24 04/21/2024 US, trans vagin al No observ ation record ed. [email or web address] [facility] [address], [place], [address], 04/21/2024 13:46:36 04/21/20 24 04/21/2024 US, pelvi s No observ ation record ed. cyndy [address], [place], [address], 04/29/2024 09:31:03 Result Notes None recorded. Problems Name Problem SNOMED Code Status Onset Date Resolution Date Notes Provider Name and Address Organization Details Recorded Time Speciali zed medical examinat ion Completed 201411/21/2020 Routine gynecolo gical examinat ion;Prac libby ID: 0001 Roseanna Nathan MD [address], [place], [address], [facility] 12:16:43 Adult health examinat ion Completed 201411/21/2020 ROUTINE MEDICAL EXAM;Rec orded Elsewher e: No Locat ion: [facility] S ource: EHR Gettering Filament Machine Operator sandro: N Rohitti ce ID: [id number] Yoan lable Time: 08:30:00 AM Roseanna Nathan MD [address], [place], [address], [facility] 12:16:16 Pelvic and perineal pain [id number] Completed 201811/21/2020 Pelvic and perineal pain;Rec orded Elsewher e: No Locat ion: [facility] S ource: EHR Gettering Filament Machine Operator sandro: N Practi ce ID: [id number] Yoan lable Time: 10:00:00 AM Roseanna Nathan MD [address], [place], [address], [facility] 12:16:29 Acute vaginiti s [id number] Completed 201711/21/2020 Acute vaginiti s;Record ed Elsewher e: No Locat ion: [facility] S ource: EHR Gettering Filament Machine Operator sandro: N Practi ce ID: [id number] Yoan lable Time: 03:45:00 PM Roseanna Nathan MD [address], [place], [address], [facility] 1 12:16:14 Cyst of ovary [id number] Completed 201411/21/2020 Ovarian cyst;Rec orded Elsewher e: No Locat ion: [facility] S ource: EHR Gettering Fil[employer] Machine Operator sandro: N Practi ce ID: [id number] Yoan lable Time: 01:30:00 PM Roseanna Nathan MD [address], [place], [address], [facility] 1 12:16:25 Screenin g for malignan t neoplasm of rectum Completed 201711/21/2020 Encounte r for screenin g for malignan t neoplasm of rectum;R ecorded Elsewher e: No [facility]: EHR Gettering Filament Machine Operator sandro: N Rohitti ce ID: [id number] Yoan lable Time: 09:00:00 AM Roseanna Nathan MD [address], [place], [address], [facility] 1 12:16:36 Vaginola bial hernia Completed 201711/21/2020 Other specifie d noninfla mmatory disorder s of vagina;R ecorded Elsewher e: No [facility] S ource: EHR Gettering Fil[employer] Machine Operator sandro: N Practi ce ID: [id number] Yoan lable Time: 03:45:00 PM Roseanna Nathan MD [address], [place], [address], [facility] 1 12:16:45 Carbuncl e [id number] Completed 201511/21/2020 Carbuncl e;Record ed Elsewher e: No Locat ion: [facility] S ource: EHR Gettering Fil[employer] Machine Operator sandro: N Practi ce ID: [id number] Yoan lable Time: 09:30:00 AM Roseanna Nathan MD [address], [place], [address], [facility] 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 12:16:41 Pre-surg bing evaluati on Completed 201411/21/2020 Pre-oper ative examinat ion, unspecif ied;Justin rded Elsewher e: No Locat ion: [facility] S ource: EHR Gettering Fil[employer] Machine Operator sandro: N Practi ce ID: [id number] Yoan lable Time: 10:30:00 AM Roseanna Nathan MD [address], [place], [address], [facility] 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 14:43:[address] Concept Completed 201511/21/2020 Encntr for general adult medical exam w/o abnormal findings ;Recorde d Elsewher e: No Locat ion: [facility] S ource: EHR [employer] Machine Operator sandro: N Rohitti ce ID: [id number] Yoan lable Time: 09:30:00 AM Roseanna Nathan MD [address], [place], [address], [facility] 1 12:16:38 Finding of trunk structur e [id number] Completed 201611/21/2020 Intra-ab dominal and pelvic swelling , mass and lump, unspecif ied site;Rec orded Elsewher e: No Locat ion: [facility] S ource: EHR [employer] Machine Operator sandro: N Practi ce ID: 0001 Yoan lable Time: 10:15:00 AM Roseanna Nathan MD [address], [place], [address], [facility] 12:16:23 Screenin g for malignan t neoplasm of cervix Completed 201411/21/2020 Screenin g for malignan t neoplasm s of the cervix;R ecorded Elsewher e: No Locat ion: [facility] S ource: EHR [employer] Machine Operator sandro: N Rohitti ce ID: 0001 Yoan lable Time: 08:30:00 AM MD [address], [place], [address], [facility] 12:16:34 Finding of trunk structur e [id number] Completed 201411/21/2020 Pelvic mass;Rec orded Elsewher e: No Locat ion: [facility] S ource: EHR Get[employer] Fil[employer] Machine Operator sandro: N Practi ce ID: [id number] Yoan lable Time: 10:30:00 AM Roseanna Nathan MD [address], [place], [address], [facility] 12:16:27 Multiple sclerosi s [id number] Completed 202003/17/2022 Luna gil, [facility] 2 17:00:22 Immunosu ppressiv e therapy Completed 202003/17/2022 PAP YEARLY [place] [facility] 2 17:00:22 History of endometr ial ablation [id number] 60411 Completed 202003/17/[address] [facility] 2 17:00:22 Polyp of colon 43700538 Completed 202003/17/[address] [facility] 2 17:00:22 Family history of cancer of colon [id number] Completed 202003/17/2022 supposed to do yearly colonsco py [place] [facility] 2 17:00:22 Problem Notes None recorded. Procedures Surgical History Date Name Laterality Status Provider Name and Address Organization Details Recorded Time 024 Date of Last Pap Smear completed Marjan Sky [facility] 04/18/2024 16:50:11 023 Date of Last Mammogram completed Nubia Sanders [facility] 04/03/2023 09:29:22 022 completed Marjan Sky [facility] 04/01/2022 14:28:17 022 Date of Last Colonoscopy completed Marjan Sky [facility] 04/01/2022 14:28:17 022 Colonoscopy completed Marjanmike Sky [facility] 04/01/2022 14:29:47 021 Thyroid Surgery completed Ana Paula Euceda [facility] 11/21/2020 12:11:55 015 laparoscopic salpingo-oophorect ja completed HARSH López [address], [place], [address], [place] [facility] 04/18/2024 11:20:58 007 Endometrial Ablation completed [facility] 11/21/2020 09:41:18 003 delivery completed [facility] 11/21/2020 09:40:22 003 Tubal Ligation completed [facility] 11/21/2020 09:44:11 999 cholecystectomy completed Marjan Sky [facility] 02/22/2022 12:04:13 998 tonsilectomy/adeno ids completed [facility] 11/21/2020 09:43:55 996 delivery completed [facility] 11/21/2020 09:40:33 Imaging Results Imaging Date Name Status LastModified by Organization Details LastModified Time 04/21/2024 US, pelvis completed [email or web address] [facility] [address], [place], [address], 04/21/2024 13:46:17 04/21/2024 US, transvaginal completed [email or web address] Lois e [address], [place], [address], 04/21/2024 13:46:36 04/21/2024 US, pelvis completed cyndy Salcido [address], [place], [address], 04/29/2024 09:31:03 Procedure Notes None recorded. Medical Equipment None Reported. Allergies Allergen ID Allergen Name Allergen Category Reaction Reaction Severity Criticality Documentation Date Start Date Code Code System Note Provider Name and Address Organization Details Recorded Time 94204 glucose medicatio n Not available Not available Not available 04/13/2020 4850 RxNorm Comme nt: [facility]; Marjan Sky [facility] 2 11:45:02 53915 honey bee venom environme nt Not available Not available Not available 04/13/2020 57620 7 RxNorm Comme nt: [facility]at [facility]; Not Available [facility] 0 14:20:30 26522 wheat gluten extract food Not available Not available Not available 04/13/2020 79352 81 RxNorm Comme nt: Locat ion: [facility]; Not Available [facility] 0 14:20:30 Medications Name Sig Start Date Stop Date Status Note LastModified by Organization Details LastModified Time amoxicill in 500 mg capsule TAKE 1 CAPSULE BY MOUTH EVERY 8 HOURS 06/05 completed Not Available Not Available Not Available methocarb hosea 500 mg tablet take 2 tablet by oral route 4 times every day 02/15 completed Prescrib ed Elsewher e: Yes Loca tion: [facility] M odify By: kirk oliver DateTime : 12/07/19 15 08:30:00 AM Not Available Not Available Not Available triamcino lone acetonide 0.5 % topical cream APPLY CREAM TOPICALL Y TO AFFECTED AREA TWICE DAILY 04/18 completed Not Available Not Available Not Available fluconazo le 150 mg tablet take 1 tablet now and again in 72 hours 04/18 completed Not Available Not Available Not Available sulfameth oxazole 400 mg-trimet hoprim 80 mg tablet TAKE 1 TABLET BY MOUTH EVERY 12 HOURS FOR 10 DAYS 02/11 completed Not Available Not Available Not Available valacyclo vir 1 gram tablet TAKE 1 TABLET BY MOUTH EVERY 12 HOURS WITH MEALS FOR 3 DAYS 04/16 completed Not Available Not Available Not Available sumatript an 100 mg tablet TAKE 0.5 (ONE-JORDON F) TO 1 TABLET BY MOUTH AT ONSET OF HEADACHE . MAY REPEAT IN 2 HOURS, DO NOT EXCEED 2 TABLETS IN A 24 HOUR PERIOD 02/22 completed Not Available Not Available Not Available hydrocodo ne 5 mg-acetam inophen 325 mg tablet TAKE 1 TABLET BY MOUTH EVERY 6 TO 8 HOURS FOR SEVERE PAIN . DO NOT EXCEED 3 PER 24 HOURS 04/03 completed Not Available Not Available Not Available fluconazo le 200 mg tablet take 1 tablet by oral route every other day x 3 total doses. 11/21 completed Prescrib ed Elsewher e: No Locat ion: [facility] odify By: cfrteena rosado Enco unter DateTime : 03/23/20 10:45:00 AM Not Available Not Available Not Available phenazopy ridine 200 mg tablet TAKE 1 TABLET BY MOUTH THREE TIMES DAILY 04/03 completed Not Available Not Available Not Available metronida zole 0.75 % (37.5 mg/5 gram) vaginal gel Insert 1 applicat orful every day by vaginal route at bedtime for 5 days. 04/03 completed Not Available Not Available Not Available clonazepa m 1 mg tablet TAKE 1 TABLET BY MOUTH NEEDED FOR ANXIETY. MAY TAKE 1 2 TABS BY MOUTH 20 MINUTES BEFORE MRI 02/27 completed Not Available Not Available Not Available metronida zole 500 mg tablet TAKE 1 TABLET BY MOUTH TWICE DAILY FOR 7 DAYS 03/18 completed Not Available Not Available Not Available valacyclo vir 500 mg tablet Take 1 tablet(s ) twice a day by oral route 2024 active Not Available Not Available Not Avai lable ciproflox acin 500 mg tablet Take 1 tablet every 12 hours by oral route for 5 days. 04/18 completed Not Available Not Available Not Available sulfameth oxazole 800 mg-trimet hoprim 160 mg tablet TAKE 1 TABLET BY MOUTH TWICE DAILY FOR 7 DAYS 04/03 completed Not Available Not Available Not Available Wellbutri n SR 100 mg tablet, 12 hr sustained -release take 1 tablet by oral route 2 times every day 03/23 completed Prescrib ed Elsewher e: Yes Loca tion: [facility] odify By: [email or web address] Reddy [email or web address] DateTime : 12/29/19 11:15:00 AM Not Available Not Available Not Available lorazepam 2 mg tablet TAKE 1 TABLET BY MOUTH 20 MINUTES BEFORE MRI 04/03 completed Not Available Not Available Not Available phenazopy ridine 100 mg tablet Take 1 tablet 3 times a day by oral route as needed for 7 days. 04/03 completed Not Available Not Available Not Available baclofen 10 mg tablet TAKE 1 TABLET BY MOUTH EVERY 6 HOURS NEEDED 03/18 completed Not Available Not Available Not Available cephalexi n 500 mg capsule TAKE 1 CAPSULE BY MOUTH EVERY 6 HOURS FOR 7 DAYS 03/18 completed Not Available Not Available Not Available triamcino lone acetonide 0.1 % topical ointment APPLY A THIN LAYER TOPICALL Y TO THE AFFECTED AREA TWICE DAILY NEEDED FOR 7 DAYS 04/18 completed Not Available Not Available Not Available clotrimaz ole-betam ethasone 1 %-0.05 % topical cream 06/05 completed Not Available Not Available Not Available levothyro xine 150 mcg tablet TAKE 1 TABLET BY MOUTH ONCE DAILY. APPOINTM ENT NEEDED FOR ADDITION AL REFILLS active Not Available Not Available No t Available Imitrex 6 mg/0.5 mL subcutane ous solution inject 0.5 millilit er by subcutan eous route once; may be repeated 1 hour after the first dose if headache pain returns or increase s in severity ; do not exceed 2 doses within 24 hours 02/22 completed Prescrib ed Elsewher e: Yes Loca tion: [facility] odify By: [email or web address] Encoundaljit r DateTime : 01/26/20 18 03:45:00 PM Not Available Not Available Not Available Euthyrox 50 mcg tablet TAKE 1 TABLET BY MOUTH ONCE DAILY 02/27 completed Not Available Not Available Not Available hydroxyzi ne HCl 25 mg tablet TAKE 1 TABLET BY MOUTH ONCE DAILY NEEDED FOR 30 DAYS 04/03 completed Not Available Not Available Not Available Clindagel 1 % topical gel, once daily apply by topical route every day a thin layer to the affected area(s) 12/01 completed Prescrib ed Elsewher e: No Locat ion: [facility] odify By: [email or web address] z Encoun ter DateTime : 12/13/19 01:30:00 PM Not Available Not Available Not Available acetamino phen 300 mg-codein e 60 mg tablet TAKE 1 TABLET BY MOUTH EVERY 6 HOURS NEEDED (MAX 4 TABS A DAY) 03/18 completed Not Available Not Available Not Available mirtazapi ne 15 mg tablet TAKE 1/2 (ONE-JORDON F) TABLET BY MOUTH TWICE DAILY 02/22 completed Not Available Not Available Not Available ergocalci ferol (vitamin D2) 1,250 mcg (50,000 unit) capsule TAKE 1 CAPSULE BY MOUTH ONCE A WEEK STOP AFTER 12 WEEKS AND START 5000 IU DAILY 04/03 completed Not Available Not Available Not Available ondansetr on 4 mg disintegr ating tablet DISSOLVE 1 TABLET IN MOUTH EVERY 8 HOURS NEEDED FOR NAUSEA AND VOMITING 04/18 completed Not Available Not Available Not Available cefdinir 300 mg capsule 03/18 completed Not Available Not Available Not Available naproxen 500 mg tablet TAKE 1 TABLET BY MOUTH TWICE DAILY APPOINTM ENT NEEDED FOR FUTURE REFILLS 04/18 completed Not Available Not Available Not Available Oyster Shell Calcium-5 00 500 mg (as carbonate 1,250 mg) tablet TAKE 1 TABLET BY MOUTH TWICE DAILY active Not Available Not Available No t Available mirtazapi ne 7.5 mg tablet TAKE 1 TABLET BY MOUTH TWICE DAILY DIRECTED 02/27 completed Not Available Not Available Not Available nitrofura ntoin monohydra te/macroc rystals 100 mg capsule TAKE 1 CAPSULE BY MOUTH TWICE DAILY FOR 7 DAYS 02/11 completed Not Available Not Available Not Available chlorhexi dine gluconate 0.12 % mouthwash 06/05 completed Not Available Not Available Not Available levothyro xine 04/01 completed Not Available Not Available Not Available calcium 04/01 completed Not Available Not Available Not Available hydrocodo ne 2.5 mg-ibupro fen 200 mg tablet take 1 tablet by oral route every 6 hours 01/25 completed Prescrib ed Elsewher e: Yes Loca tion: Lois reddy [facility] odify By: joseph mars DateTime : 12/07/19 15 08:30:00 AM Not Available Not Available Not Available biotin 5 mg tablet 01/25 completed Prescrib ed Elsewher e: Yes Loca tion: Lois reddy [facility] odify By: [email or web address] Encounte r DateTime : 12/07/19 15 08:30:00 AM Not Available Not Available Not Available Gablofen 10,000 mcg/20 mL (500 mcg/mL) intrathec al solution infuse by cont intrathe laona inf route (90 mcg/day) 02/15 completed Prescrib ed Elsewher e: Yes Loca tion: [facility] odify By: kirk oliver DateTime : 01/26/20 18 03:45:00 PM Not Available Not Available Not Available Multi Vitamin 9 mg iron/15 mL oral liquid 01/25 completed Prescrib ed Elsewher e: Yes Loca tion: [facility] odify By: joseph Encounte r DateTime : 12/07/19 15 08:30:00 AM Not Available Not Available Not Available Tecfidera 120 mg (14)-240 mg (46) capsule,d elayed release 12/02 completed Prescrib ed Elsewher e: Yes Loca tion: [facility] odify By: riley birch DateTime : 12/29/19 10:30:00 AM Not Available Not Available Not Available Ocrevus 30 mg/mL intraveno us solution infuse by intraven ous route every 6 months over at least (maximum infusion rate 200 mL/hr) 03/18 completed Prescrib ed Elsewher e: Yes Loca tion: [facility] odify By: kirk oliver DateTime : 02/16/20 18 11:30:00 AM Not Available Not Available Not Available baclofen 5 mg tablet 04/01 completed Not Available Not Available Not Available Vitals Date Recorded Body height Body mass index (BMI) Body weight Systolic blood pressure Diastolic blood pressure Provider Name and Address Organization Details Last Updated DateTime 02/12/2024 165.1 cm 28.3 kg/m2 00287.7 g 128 mm[Hg] 84 mm[Hg] Marjan Sky [facility] 4 14:51:00 Date Recorded Body height Body mass index (BMI) Body weight Systolic blood pressure Diastolic blood pressure Provider Name and Address Organization Details Last Updated DateTime 03/18/2024 165.1 cm 29.6 kg/m2 59574.44 g 135 mm[Hg] 83 mm[Hg] Nubia Sanders [facility] 4 10:09:32 Date Recorded Body height Body mass index (BMI) Body weight Systolic blood pressure Diastolic blood pressure Provider Name and Address Organization Details Last Updated DateTime 04/18/2024 165.1 cm 29.1 kg/m2 92296.66 g 129 mm[Hg] 82 mm[Hg] Marjan Sky [facility] 4 09:34:57 Date Recorded Body height Body mass index (BMI) Body weight Systolic blood pressure Diastolic blood pressure Provider Name and Address Organization Details Last Updated DateTime 04/28/2024 165.1 cm 29.8 kg/m2 60510.03 g 129 mm[Hg] 82 mm[Hg] Nubia Edouarder [facility] 5 16:42:43 Social History Question Answer Notes LastModified by Organizat ion Details LastModified Time Tobacco Smoking Status Never Smoker Nubia Tommy [facility] 04/03/2023 09:26:07 Do You Have An Advance Directive? No [email or web address] Information n ot available 02/22/2022 What Is Your Level Of Alcohol Consumption? None Information not available 04/28/2024 Are You Blind Or Do You Have Difficulty Seeing? No [email or web address] Information n ot available 02/22/2022 What Is Your Level Of Caffeine Consumption? Moderate Information not available 04/28/2024 How Much Tobacco Do You Chew? None [email or web address] Information not available 04/01/2022 In The 14 Days Before Symptom Onset, Have You Had Close Contact With A Laboratory-confirm ed COVID-19 While That Case Was Ill? No [email or web address] Information n ot available 02/22/2022 In The 14 Days Before Symptom Onset, Have You Had Close Contact With A Person Who Is Under Investigation For COVID-19 While That Person Was Ill? No [email or web address] Information not available 02/22/2022 Have You Been To An Area Known To Be High Risk For COVID-19? No [email or web address] Information not available 02/22/2022 Are You Deaf Or Do You Have Serious Difficulty Hearing? No [email or web address] Information not available 02/22/2022 What Type Of Diet Are You Following? SPECIFIC [email or web address] Information n ot available 04/01/2022 What Is The Highest Grade Or Level Of School You Have Completed Or The Highest Degree You Have Received? 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 No [email or web address] Information not available 02/22/2022 Have You Ever Been Counseled For Unhealthy Alcohol Use? No Information not available 04/03/2023 Do You Use Protection During Sex? No [email or web address] Information not available 02/22/2022 Do You Use Your Seat Belt Or Car Seat Routinely? Yes [email or web address] Information not available 02/22/2022 Do You Have Smoke And Carbon Monoxide Detectors In Your Home? Yes Information not available 02/22/2022 How Much Tobacco Do You Smoke? No Information not available 02/22/2022 Do You Feel Stressed (tense, Restless, Nervous, Or Anxious, Or Unable To Sleep At Night)? [id number] Information not available 04/28/2024 Do You Use Any Illicit Or Recreational Drugs? No [email or web address] Information not available 02/22/2022 Do You Use Sunscreen Routinely? No Information not available 04/28/2024 Has Tobacco Cessation Counseling Been Provided? No Information not available 04/03/2023 Have You Used IV Drugs? No [email or web address] Information not available 02/22/2022 Do You Or Have You Ever Used Any Other Forms Of Tobacco Or Nicotine? No Information not available 04/03/2023 Sex: Unknown Functional Status Question Answer Note LastModified by Organizat ion Details LastModified Time Do you have difficulty walking or climbing stairs? No Information not available 04/03/2023 Are you able to walk? YESWOREST [email or web address] Information not available 02/22/2022 Are you able to care for yourself? Yes Information not available 04/03/2023 Do you have difficulty dressing or bathing? No Information not available 04/03/2023 What is your exercise level? Heavy Information not available 04/28/2024 Mental Status None recorded. Family History Relationship Description Onset Age of this Age Resolved Age Notes LastModified by Organization Details LastModified Time Father No current problems or disability Not available 04/03 09:30:18 Mother No current problems or disability Not available 04/03 09:30:18 Medical History Condition Response Allergies (Food, seasonal, environmental ) N Other N Breast Cancer N Drug/Latex Allergies/Reactions N Blood Transfusion N Dermatologic Disorders N Lung Disease N Defects or Inherited Disease N Breast Problem N Gestational Diabetes N Hematologic disorders N Anesthesia Complications N History of STI N Deep Vein Thrombosis N Polycystic ovary syndrome N Anxiety Disorder Y Autoimmune disease N Arthritis N Infertility N Polyps N Acid Reflux (GERD) N History of abnormal pap N Cancer N Stroke N Varicosities N Neurologic/Epilepsy Y Endometriosis N High Cholesterol N Headaches Y Fibromyalgia N Kidney Disease N Heart Problems N Kidney or Bladder Problems N Thyroid Problems Y GI Problems N Eating Disorder N Anemia N Art (IVF or FET) N Psychiatric Illness N Ovarian Cancer N Diabetes N Pulmonary (TB, Asthma) N Hepatitis/Liver Disease N No Past Medical History N Eczema N Urinary Tract Infection N Abuse/Domestic Violence N Asthma N Trauma/Violence N Depression/ depression N Heart Disease N Pre-Eclampsia N Hypertension N Osteoporosis N Thrombophilias N Gynecological History Statement/Question Response Date of Last Mammogram 07/02/2022 Date of LMP 03/03/2008 On BCP's at Conception? N N Was last menstrual period normal N STIs/STDs Y HPV Vaccine N Current Control Method Tubal Ligat ion Age at First Child 19 Date of control 01/04/2003 Date of Last Colonoscopy 05/03/2021 Sexually Active? Y Menses Monthly N Date of DEXA bone scan Age of first menstrual cycle 13 Date of Last Pap Smear 04/18/2024 Sexual Problems? N Desired Control Method Ablation LMP Definite 05/03/2021 Y Obstetrics History GPAL:G 2 P 2 0 0 2 Type Value Full Term 2 Living 2 Total 2 Past Encounters Encounter ID Performer Location Encounter Start Date Encounter Closed Date Diagnosis/Indication Diagnosis SNOMED-CT Code Diagnosis ICD10 Code Diagnosis Note [id number] Roseanna Nathan MD [facility] [address],[place] [address] 11/21/2020 11:57:41 11/21/2020 12:45:54 Lesion of vulva 941251961 N90.89 [id number] Roseanna Nathan MD [facility] [address],[place] [address] 02/27/2021 14:06:32 02/27/2021 14:48:06 Immunosuppressive therapy 97856515 D84.9 Family his tory of cancer of colon 359825050 Z80.0 Polyp of colon 89550670 K63.5 [id number] Avelina Alexander , [facility] [address],[place] [address] 02/22/2022 11:29:47 02/24/2022 16:47:16 Skin lesion 66172034 L98.9 Suspect HSV on exam in anal/recta l area.Medic ation reviewed & sent Counseled on medication R/B's, Most common side effects, & use. All questions were answered to patient satisfacti on. If swab comes back neg will send for serum STD screening; unable to complete today due to lab closure so we can also complete at upcoming WWE visit. Time spent in visit is a total of 15 mins with at least 50% of visit consisting of counseling and review of plan of care. [id number] Avelina Alexander [facility] [address],[place] [address] 04/01/2022 14:14:09 04/01/2022 15:21:24 Gynecologic examination 10999207 Z01.419 Suggested Calcium with Vitamin D 1200-1500m g daily. Patient advised to get an annual flu shot in the fall and she could obtain at [facility] or [facility] take care clinic. Also to obtain TDap vaccinatio n if you have not had one in the last 10 years. Recommend yearly mammograms . Encouraged monthly self breast exams. Encourage safe sexual practices, to use condoms and limit partners if not already in a monogamous relationsh ip. Engage in daily exercise of low impact aerobic exercise 45-60 minutes 4-5 times weekly. Avoid tobacco and illicit drugs as well as using moderation with alcohol intake less than 1-2 8 oz beverages daily. This lifestyle behavior pattern will lead to less health conditions and longer life span. If BMI greater than 25 weight watchers or dietary consult advised. All questions have been answered. Patient appears to understand informatio n, but if you have any questions please call or respond to this email.Pap/ hpv sentSTD Screen declinedGe netic Screen discussedC olon Screen needs to update b/c getting infusion with neurologis t.Dexa Screen naRoutine Lab PCP/Specia listMammo ordered Screening for malignant neoplasm of breast 186177072 Z12.39 Screening colonoscopy 44 5321744 Z12.11 OrderedCon tact to see where she wants to go. Herpes simplex 32347793 B00.9 Will contact us if neurologis t recommends /approves HSV suppressio n therapy? or other regimen for HSV so does not have an outbreakoc revus infusionsW ill hold off on Valtrex until hear from neurologis t [id number] [facility] [address] [address] 06/05/2022 16:44:51 06/05/2022 17:12:10 Urinary symptoms 324706600 R39.9 Suspect UTI on dip and subjective complaints .Rx sentCounse led on medication R/B's, Most common side effects, & use. All questions were answered to patient satisfacti on. Declined need std screen Time spent in visit is a total of 15 mins with at least 50% of visit consisting of counseling and review of plan of care. [id number] Elsy Auguste JUDY [facility] [address] [address] 07/29/2022 09:45:03 07/29/2022 15:07:38 Vaginitis 67116441 N76.0 suspect BVvaginiti s panel sentSTI endocervic al testing sentvulvar care guidelines discussedR x sent, R/B/A discussedR TC if symptoms persist past treatment Time spent in visit is a total of 18 mins with at least 50% of visit consisting of counseling and review of plan of care. [id number] Avelina Alexander , [facility] [address],[place] [address] 04/03/2023 09:18:09 04/07/2023 18:35:04 Gynecologic examination 97025612 Z01.419 Z11.51 Z11.3 Suggested Calcium with Vitamin D 1200-1500m g daily. Patient advised to get an annual flu shot in the fall and she could obtain at [facility] or [facility] clinic. Also to obtain TDap vaccinatio n if you have not had one in the last 10 years. Recommend yearly mammograms . Encouraged monthly self breast exams. Encourage safe sexual practices, to use condoms and limit partners if not already in a monogamous relationsh ip. Engage in daily exercise of low impact aerobic exercise 45-60 minutes 4-5 times weekly. Avoid tobacco and illicit drugs as well as using moderation with alcohol intake less than 1-2 8 oz beverages daily. This lifestyle behavior pattern will lead to less health conditions and longer life span. If BMI greater than 25 weight watchers or dietary consult advised. All questions have been answered. Patient appears to understand informatio n, but if you have any questions please call or respond to this email.Pap/ hpv sentSTD Screen declinedGe netic Screen discussedC olon Screen needs to update b/c getting infusion with neurologis t.Dexa Screen naRoutine Lab PCP/Specia listMammo ordered Screening mammography 24 702200 Z12.31 Herpes simplex 97635480 B00.9 Double during flare upsCan call if need Rx sent [id number] Nubia Sanders [facility] [address] [address] 12/11/2023 10:51:52 12/11/2023 11:46:12 Vaginitis 78700580 N76.0 Dysuria 06155524 R30.0 Urinary symptoms 5064344 08 R39.9 [id number] Ange Cheng [facility] [address] [address] 01/01/2024 14:15:12 01/01/2024 15:13:31 Urinary symptoms 750839354 R39.9 [id number] Marjan Sky [facility] [address] [address] 02/12/2024 13:53:51 02/12/2024 15:15:39 Burning sensation of vagina 603078917 R20.8 [id number] Jace Mcneil MD [facility] [address] [address] 03/18/2024 09:32:12 03/18/2024 10:54:29 Urinary symptoms 429259224 R39.9 Cyst of ovary 42892283 N 83.209 Acute urin joel tract infection 013663017 N39.0 this patient is a 48-year-ol d female who presents for urinary symptoms. She has some suprapubic pain that radiates to her right lower back. She has a history of recurrent urinary tract infection. She has a positive urine dip today. We agreed to treat. She has had many urinary tract infections over the last year. Sixty-chalo n urinary tract infections with an 11 months. We agreed to refer to urology. We discussed the treatment. She also gets yeast infections with treatment with antibiotic s. We agreed to treat with Cipro and Diflucan. We discussed those medication s. We discussed the risks, benefits, and alternativ es. We discussed precaution s and instructio ns. To refer to urology. Patient also has a right ovarian cyst that we agreed to follow-up on. [id number] HARSH López [facility] [address],[place] [address] 04/18/2024 08:56:04 04/18/2024 11:30:11 Gynecologic examination 88671888 Z01.419 EB - BTLPap - done todaySTI screen - gc/ct/tric h testing added to papMammogr am - order givenColon cancer screening - UTDRoutine labs - UTD/PCPRTC in 1 yr or sooner if needed Suggested Calcium with Vitamin D daily. Patient advised to get an annual flu shot in the fall and she could obtain at local pharmacy. Also to obtain TDap vaccinatio n if you have not had one in the last 10 years. Recommend yearly mammograms . Encouraged monthly self breast exams. Encourage safe sexual practices, to use condoms and limit partners if not already in a monogamous relationsh ip. Engage in regular exercise. Avoid tobacco and illicit drugs. This lifestyle behavior pattern will lead to less health conditions and longer life span. If BMI greater than 25 dietary consult advised. All questions have been answered. Pain in pelvis 55645618 R10.2 pelvic u/s orderedsus pect enlarged uterus on bi-manual examMD consult scheduled with Dr. Mcneil Time spent in visit is a total of 35 mins with at least 50% of visit consisting of counseling and review of plan of care. Urinary symptoms 7308671 08 R39.9 referral sentnumber given to ptdeclined UA today Screening for malignant neoplasm of breast 010621455 Z12.39 Venereal d isease screening 826239936 Z11.3 [id number] Ale [facility] [address] [address] 04/21/2024 11:27:56 04/21/2024 12:03:32 Pain in pelvis 04373003 R10.2 [id number] Jace Mcneil MD [facility] [address] [address] 04/28/2024 15:59:28 04/28/2024 17:16:14 Pain in pelvis 42421593 R10.2 This patient is a 48-year-ol d female presents for ultrasound follow-up. She has had some pelvic pain. She favors a urinary tract etiology. Her pelvic ultrasound is essentiall y normal. Her right ovary is normal. Her left ovary is absent. She has had an endometria l ablation. That shows on ultrasound . She has a small uterine fibroid. We agreed to observe. She is being evaluated by Urology. That is pending. She will follow up as needed. 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 Health Concerns Section Related Observation LastModified by Organization Detai ls LastModified Time None Recorded Concern Status LastModified by Organization Details LastModified Time None Recorded Advance Directives Directive N: Payers Encounter Date Sequence Insurance Name Policy Number Policy Gaines Covered Member ID Gaines Member ID Guarantor Name 02/12/2024 1 [facility] (MEDICAID HMO) [id number] Magy Phelps [id number] Magy Phelps 03/18/2024 1 [facility] (MEDICAID HMO) [id number] Magy Pfleger [id number] Magy Pfleger 04/18/2024 1 [facility] (MEDICAID HMO) [id number] Magy Pfleger [id number] Magy Pfleger 04/21/2024 1 [facility] (MEDICAID HMO) [id number] Magy Pfleger [id number] Magy Pfleger 04/28/2024 1 [facility] (MEDICAID HMO) [id number] Magy Pfleger [id number] Magy Pfleger Notes Date Note Type Note Provider Name and Address Organization Details Recorded Time 03/18/2024 text/html this patient is a 48-year-old female who presents for urinary symptoms. She has some suprapubic pain that radiates to her right lower back. She has a history of recurrent urinary tract infection. She has a positive urine dip today. We agreed to treat. She has had many urinary tract infections over the last year. Sixty-seven urinary tract infections with an 11 months. We agreed to refer to urology. We discussed the treatment. She also gets yeast infections with treatment with antibiotics. We agreed to treat with Cipro and Diflucan. We discussed those medications. We discussed the risks, benefits, and alternatives. We discussed precautions and instructions. To refer to urology. Jace Mcneil MD [address], [place], [address], [facility] 03/18/2024 10:53:43 04/18/2024 text/html Annual GYNReport ed bypatient.Menstrual cycle:no periods since ablation Urinary symptoms:No hematuria; No incontinence Vulva:No genital lesion Vagina:Normal vaginal discharge Breast:No breast pain; No breast lump; No nipple discharge Current Contraception:Tubal ligation Sexual complaints:No sexual complaints; No pain during intercourse; Normal libido Menopausal Symptoms:No menopausal symptoms; Normal vaginal lubrication Psychological symptoms:No depression; No anxiety; No PMDD Preventive measures:Encourage self breast examination; Encourage regular exercise; Encourage no tobacco use; Encourage regular mammograms starting age 41Notes:48yo wweh/o BS, LO and endometrial ablation. Right ovary remainsno periods since ablationlast pap 2022 : nilm, HPV (-)mammogram - needs ordercolonoscopy [place]/2021 frequent UTI's/urinary symptoms. Referred to urology last month but has not heard from office to schedule.lower right pelvic pain, comes and goes, cramping, bloating HARSH L[address]pez [address], [place], [address], [facility] 04/18/2024 11:26:56 04/28/2024 text/html This patient is a 48-year-old female presents for ultrasound follow-up. She has had some pelvic pain. She favors a urinary tract etiology. Her pelvic ultrasound is essentially normal. Her right ovary is normal. Her left ovary is absent. She has had an endometrial ablation. That shows on ultrasound. She has a small uterine fibroid. We agreed to observe. She is being evaluated by Urology. That is pending. She will follow up as needed. 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 Jace Mcneil MD [address], [place], [address], [facility] 04/28/2024 17:10:17 OBGyn Episode Ob Episode Information Episode Created Date Number of Fetuses Patient Bloodtype Patient rh Status Prepregnancy Weight lbs Domestic Partner Domestic Partner Phone Father Name Laminating Press Operator Status 11/22/19 21 1 CLOSED Fetus Data First Name Last Name Admitted to NICU Weight (g) Sex Living Outcome Pediatric Complications Fetus ID Race Codes Race Delivery Type 3656.85 8704 F Full Term [id number] Primary Juancarlos Calculation Initial Juancarlos Date Initial Exam Date Initial Exam Provider Initial Ultrasound Date Last Menstrual Period Date Ultra Sound Weeks Gestation 0 Eighteen To Twenty Week Juancarlos Update Ultra Sound Date Fundal Height At Umbil Quickening Date Ultra Sound Latest Weeks Gestation Final Juancarlos Confirmed By Final Juancarlos Confirmed Date Final Juancarlos Date Ultra Sound Latest Days Gestation 0 0 Menstrual History Last Menstrual Date Menses Monthly On Bcp Conception Prior Menses Frequency Hcg Plus Date Menarche Onset Age Delivery Information Delivery Date Delivery Type Labor Anesthesia Weeks Gestation Incision Type Labor Labor Length Hrs Delivered By Post Complications Tubal Sterilization Discharge Date Comments 3 38 Discharge Information Feeding Method Contraceptive Method Maternal HG B and HCT Levels Ob Episode Information Episode Created Date Number of Fetuses Patient Bloodtype Patient rh Status Prepregnancy Weight lbs Domestic Partner Domestic Partner Phone Father Name Laminating Press Operator Status 11/22/19 21 1 CLOSED Fetus Data First Name Last Name Admitted to NICU Weight (g) Sex Living Outcome Pediatric Complications Fetus ID Race Codes Race Delivery Type 3316.66 [id number] F Full Term [id number] Primary Juancarlos Calculation Initial Juancarlos Date Initial Exam Date Initial Exam Provider Initial Ultrasound Date Last Menstrual Period Date Ultra Sound Weeks Gestation 0 Eighteen To Twenty Week Juancarlos Update Ultra Sound Date Fundal Height At Umbil Quickening Date Ultra Sound Latest Weeks Gestation Final Juancarlos Confirmed By Final Juancarlos Confirmed Date Final Juancarlos Date Ultra Sound Latest Days Gestation 0 0 Menstrual History Last Menstrual Date Menses Monthly On Bcp Conception Prior Menses Frequency Hcg Plus Date Menarche Onset Age Delivery Information Delivery Date Delivery Type Labor Anesthesia Weeks Gestation Incision Type Labor Labor Length Hrs Delivered By Post Complications Tubal Sterilization Discharge Date Comments 6 42 Discharge Information Feeding Method Contraceptive Method Maternal HG B and HCT Levels
--- OUTSIDE RECORDS SUMMARY | 2024-06-30 16:44 | XMS_ITS | Clinical Summary ---
Author Organization [facility] Address [address] [place] [address] Phone Care Team Providers Care Elastic Assembler Name Role Phone MARYANA ANP-BC, FERNANDO L Unavailable [phone] SAMUEL DELGADILLO, ERASTO Unavailable [phone] CALDERON GODOY PA-C Primary Care Provider [phone] Reason for Visit and Chief Complaint RX ISSUE/REFILL Problems Includes: Problems addressed during this encounter and other active Problems All Visits Onset Date Resolved Date Provider Condition S tatus Dyslipidemia 03/12/2020 FERNANDO L MARYANA ANP-BC Active Last Documented On 0 11:12AM ; [facility] 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 03/12/2020 FERNANDO L MARYANA ANP-BC Active Last Documented On 0 11:12AM ; [facility] Depression Chronic 03/12/2020 FERNANDO L MARYANA ANP-BC Active Last Documented On 0 11:12AM ; [facility] Hypothyroidism 03/12/2020 FERNANDO L MARYANA ANP- BC Active Last Documented On 0 11:11AM ; [facility] Overweight 03/12/2020 FERNANDO L MARYANA ANP-BC A ctive Last Documented On 0 11:12AM ; [facility] Plan of Treatment No Plan of Treatment Recorded Assessments Includes: Assessments from this encounter No Assessments Recorded Medical Equipment - Implanted Devices Includes: Current Devices No Medical Equipment Recorded Medications Includes: Medications discussed during this encounter and other current Medications Discontinued / Stopped on this date FERNANDO L MARYANA ANP-BC on 07/14/2023 Acetaminophen-Codeine 300-60 MG Oral Tablet Provider: FERNANDO BERMUDEZ Diagnosis: Multiple scleros is Last Documented On 4 10:43AM By FERNANDO BERMUDEZ ; [facility] New / Renewed during this visit FERNANDO BERMUDEZ on 08/13/2023 Acetaminophen-Codeine 300-60 MG Oral Tablet Provider: FERNANDO BERMUDEZ 30 day supply: 120 tablet, 0 refills Diagnosis: Multiple sclerosis 1 every 6 hours as needed, m ax 4/daystart 08/16 Pharmacy: [address], [address] - Last Documented On 4 8:53AM By FERNANDO BERMUDEZ ; [facility] Current Medications (continue as prescribed) Acetaminophen-Codeine 300-60 MG Oral Tablet 10/14/2023 Provider: RHYS DONNELLY APRN-ZAHIRAAMIHAI Diagnosis: Multiple scleros is 1 every 6 hours as needed, max 4/day Last Documented On 4 10:25AM By RHYS HOLM ; [facility] Baclofen 10 MG Oral Tablet 08/31/2023 Provider: Manav BERMUDEZ Diagnosis: TAKE 1 TABLET BY MOUTH EVERY 6 HOURS NEEDED Last Documented On 4 8:18AM By FERNANDO BERMUDEZ ; [facility] valACYclovir HCl 500 MG Oral Tablet 08/28/2023 Provi azucena: Diagnosis: Last Documented On 09/09/2023 8:33AM By Destiny SEGOVIA ; [facility] Levothyroxine Sodium 150 MCG Oral Tablet 05/18/2023 Provider: CALDERON GODOY PA-C Diagnosis: Last Documented On 06/16/2023 8:54AM By Destiny SEGOVIA ; [facility] Oyster Shell Calcium 500 MG Oral Tablet 01/02/2023 P rovider: CALDERON GODOY PA-C Diagnosis: Last Documented On 01/21/2023 8:49AM By Destiny SEGOVIA ; [facility] Naproxen Sodium ER 500 MG Oral Tablet Extended R elease 24 Hour 03/12/2020 Provider: Diagnosis: Last Documented On 3 1:26PM By RHYS HOLM ; [facility] Ocrevus 300 MG/10ML Intravenous Solution 03/12/2020 Provider: Diagnosis: Last Documented On 3 1:26PM By RHYS HOLM ; [facility] Medications Administered Includes: Administered Medications from this encounter No Administered Medications Recorded Results Includes: Results discussed during this encounter No Results Recorded For Specified Dates History of Present Illness Includes: History of Present Illness from this encounter No History of Present Illness Recorded Social History Description Last Updated Current smoker CANNIBIS 06/16/2023 Last Documented On 4 8:57AM ; [facility] Tobacco non-user 07/07/2022 Last Documented On 4 8:57AM ; [facility] Current nonsmoker 07/23/2020 Last Documented On 4 8:57AM ; [facility] Using marijuana 03/12/2020 Last Documented On 4 8:57AM ; [facility] Non-smoker 03/12/2020 Last Documented On 4 8:57AM ; [facility] No menarche yet 03/12/2020 Last Documented On 4 8:57AM ; [facility] Smoking Status Unknown Medical History Includes: Medical History addressed during this encounter Description Last Updated 1 miscarriage(s) 03/12/2020 Last Documented On 4 8:57AM ; [facility] Currently wearing eyeglasses 03/12/2020 Last Documented On 4 8:57AM ; [facility] Previously 2 time(s) 03/12/2020 Last Documented On 4 8:57AM ; [facility] Surgery , tonsilectomy, gallbla dder, apendix, left ovary removal 03/12/2020 Last Documented On 4 8:57AM ; [facility] reviewed and unchanged since last visit 03/12/2020 Last Documented On 4 8:57AM ; [facility] Reported dietary history 03/12/2020 Last Documented On 4 8:57AM ; [facility] Taking medication 03/12/2020 Last Documented On 4 8:57AM ; [facility] Taking vitamin supplements 03/12/2020 Last Documented On 4 8:57AM ; [facility] Family History Includes: Family History addressed during this encounter No Family History Recorded Review of Systems Includes: Review of Systems from this encounter No Review of Systems Recorded Mental Status Includes: Mental Status from this encounter No Mental Status Recorded Functional Status Includes: Functional Status from this encounter No Functional Status Recorded Physical Exam Includes: Physical Exam from this encounter No Physical Exam Recorded Allergies Includes: Active Allergies Substance Type Reaction Onset Date Resolved Date Statu s traMADol HCl Allergy 10/09/2020 Active Last Documented On 4 8:34AM ; [facility] Encounters Encounter Provider Location Date Check-In Time Check-Out Time Diagnosis RX ISSUE/REFILL FERNANDO BERMUDEZ 08/13/2023 8:57AM 11:59PM Insurance Includes: Active Insurance Policies Plan Name Member ID Group # Subscriber Relationship Effect nba Dates 1 - [facility] [id number] DAPHNE NICOLE Self Clinical Notes Includes: Clinical Notes from this encounter * Progress note Date Encounter Last Documented by 08/13/2023 RX ISSUE/REFILL Last documented on 08/13/2023; 10:43 AM, FERNANDO RHODES-CARMELLA; [facility] Active Problems & Conditions - Congenital Clotting Factor Deficiency Factor V - Depression Chronic - Dyslipidemia - Hypothyroidism - Overweight Chief Complaint Phone Call - Chief Concern: Reason for call:RX REFILL Patient is requesting a refill on TYLENOL #4 ~How is medication taken? QID ~How many are left?15 Risk Assessment Score: MOD ~[place]:07/16/23 Last Office Visit: 06/16/23 ~ pt phone # for Return call: ~Last Drug Screen:01/21/23 ~Date/Initials: 08/13/23 CB. Past Medical/Surgical History Reported: Surgery , tonsilectomy, gallbladder, apendix, left ovary removal. Medical: Currently wearing eyeglasses. Medications: Taking vitamin supplements. Dietary: Reported dietary history. : Previously 2 time(s) and aborta including 1 miscarriage(s). Reviewed and unchanged since last visit. Current Medication - Baclofen 10 MG Oral Tablet TAKE 1 TABLET BY MOUTH EVERY 6 HOURS NEEDED, 30 days, 0 refills - Levothyroxine Sodium 150 MCG Oral Tablet One tablet daily 90 days, 0 refills - Naproxen Sodium ER 500 MG Oral Tablet Extended Release 24 Hour One tablet twice a day 0 days, 0 refills - Ocrevus 300 MG/10ML Intravenous Solution 0 days, 0 refills - Oyster Shell Calcium 500 MG Oral Tablet One tablet daily 30 days, 0 refills - valACYclovir HCl 500 MG Oral Tablet One tablet daily 30 days, 0 refills Social History Tobacco use: Current smoker CANNIBIS, current nonsmoker, and non-smoker. Drug Use: Using marijuana. No menarche yet. Allergies - traMADol HCl Plan StartCited - Multiple sclerosis Acetaminophen-Codeine 300-60 MG tablet 1 every 6 hours as needed, max 4/daystart 08/16, 30 days, 0 refills EndCited Care Team - CARMELO MCDANIEL- - Pain Management Health Reminders - Assess Tobacco Use satisfied 08/13/2023.
--- OUTSIDE RECORDS SUMMARY | 2024-06-30 16:44 | XMS_ITS | Clinical Summary ---
Author Organization [facility] Address [address] [place] [id number] Care Team Providers Care Local Area Network Administrator Name Role Phone Unavailable Primary Care Provider Unavailabl e Social History Tobacco Use Types Packs/Day Years Used Date Smoking Tobacco: Never Assessed Comments Unknown Sex and Gender Information Value Date Recorded Sex Assigned at Not on file Legal Sex Female 7:28 AM CDT Gender Identity Not on file Sexual Orientation Not on file Plan of Treatment Health Maintenance Due Date Last Done Comments Cervical Cancer Screening Pa p Smear (Age 30 to 64) Every 3 Years 1976 Colorectal Cancer Screening Colonoscopy (10 Years) 1976 Annual Physical 06/30/1979 Hepatitis C 1994 DTaP, Tdap and Td Vaccines ( 1 - Tdap) 06/30/1995 Hepatitis B Vaccines (1 of 3 - 19+ 3-dose series) 06/30/1995 Cervical Cancer Screening Pa p with HPV Testing (Age 30 to 64) Every 5 Years 2006 Cervical Cancer Screening with HPV 2006 Mammogram Screening 2016 COVID-19 Vaccine (2023-2 5 season) 2023 Influenza Adult (#1) 2024 Meningococcal B Vaccine Aged Out No l onger eligible based on patient's age to complete this topic Meningococcal Vaccine Aged Out No antonia yael eligible based on patient's age to complete this topic Pneumococcal Vaccine: Pediat rics (0 to 5 Years) and At-Risk Patients (6 to 64 Years) Aged Out No longer eligible b ased on patient's age to complete this topic RSV Immunizations Under 20 Months Aged Out No longer eligible based on patient's age to complete this topic
--- OUTSIDE RECORDS SUMMARY | 2024-06-30 16:44 | XMS_ITS | Clinical Summary ---
Author Organization [facility] Address [address] [place] [address] Phone Care Team Providers Care Hyperion Developer Name Role Phone MARYANA ANP-BC, FERNANDO L Unavailable [phone] SAMUEL DELGADILLO, ERASTO Unavailable [phone] CALDERON GODOY PA-C Primary Care Provider [phone] Reason for Visit and Chief Complaint RX ISSUE/REFILL Problems Includes: Problems addressed during this encounter and other active Problems All Visits Onset Date Resolved Date Provider Condition S tatus Dyslipidemia 03/12/2020 FERNANDO L MARYANA ANP-BC Active Last Documented On 0 11:12AM ; [facility] 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 03/12/2020 FERNANDO L MARYANA ANP-BC Active Last Documented On 0 11:12AM ; [facility] Depression Chronic 03/12/2020 FERNANDO L MARYANA ANP-BC Active Last Documented On 0 11:12AM ; [facility] Hypothyroidism 03/12/2020 FERNANDO L MARYANA ANP- BC Active Last Documented On 0 11:11AM ; [facility] Overweight 03/12/2020 FERNANDO L MARYANA ANP-BC A ctive Last Documented On 0 11:12AM ; [facility] Plan of Treatment No Plan of Treatment Recorded Assessments Includes: Assessments from this encounter No Assessments Recorded Medical Equipment - Implanted Devices Includes: Current Devices No Medical Equipment Recorded Medications Includes: Medications discussed during this encounter and other current Medications Current Medications (continue as prescribed) Acetaminophen-Codeine 300-60 MG Oral Tablet 10/14/2023 Provider: RHYS DONNELLY APRN-FPA, HELICOPTER TECHNICIAN-BC Diagnosis: Multiple scleros is 1 every 6 hours as needed, max 4/day Last Documented On 4 10:25AM By RHYS DONNELLY [facility]- ; [facility] Baclofen 10 MG Oral Tablet 08/31/2023 Provider: Manav RHODES-BC Diagnosis: TAKE 1 TABLET BY MOUTH EVERY 6 HOURS NEEDED Last Documented On 4 8:18AM By FERNANDO MIJARES [facility] ; [facility] valACYclovir HCl 500 MG Oral Tablet 08/28/2023 Provi azucena: Diagnosis: Last Documented On 09/09/2023 8:33AM By Destiny SEGOVIA ; [facility] Levothyroxine Sodium 150 MCG Oral Tablet 05/18/2023 Provider: CALDERON GODOY PA-C Diagnosis: Last Documented On 06/16/2023 8:54AM By Destiny SEGOVIA ; [facility] Oyster Shell Calcium 500 MG Oral Tablet 01/02/2023 P rovider: CALDERON GODOY PA-C Diagnosis: Last Documented On 01/21/2023 8:49AM By Destiny SEGOVIA ; [facility] Naproxen Sodium ER 500 MG Oral Tablet Extended R elease 24 Hour 03/12/2020 Provider: Diagnosis: Last Documented On 3 1:26PM By RHYS DONNELLY [facility]- ; [facility] Ocrevus 300 MG/10ML Intravenous Solution 03/12/2020 Provider: Diagnosis: Last Documented On 3 1:26PM By RHYS DONNELLY [facility]- ; [facility] Medications Administered Includes: Administered Medications from this encounter No Administered Medications Recorded Results Includes: Results discussed during this encounter No Results Recorded For Specified Dates History of Present Illness Includes: History of Present Illness from this encounter No History of Present Illness Recorded Social History Description Last Updated Current smoker CANNIBIS 06/16/2023 Last Documented On 4 4:22PM ; [facility] Tobacco non-user 07/07/2022 Last Documented On 4 4:22PM ; [facility] Current nonsmoker 07/23/2020 Last Documented On 4 4:22PM ; [facility] Using marijuana 03/12/2020 Last Documented On 4 4:22PM ; [facility] Non-smoker 03/12/2020 Last Documented On 4 4:22PM ; [facility] No menarche yet 03/12/2020 Last Documented On 4 4:22PM ; [facility] Smoking Status Unknown Medical History Includes: Medical History addressed during this encounter Description Last Updated 1 miscarriage(s) 03/12/2020 Last Documented On 4 4:22PM ; [facility] Currently wearing eyeglasses 03/12/2020 Last Documented On 4 4:22PM ; [facility] Previously 2 time(s) 03/12/2020 Last Documented On 4 4:22PM ; [facility] Surgery , tonsilectomy, gallbla dder, apendix, left ovary removal 03/12/2020 Last Documented On 4 4:22PM ; [facility] reviewed and unchanged since last visit 03/12/2020 Last Documented On 4 4:22PM ; [facility] Reported dietary history 03/12/2020 Last Documented On 4 4:22PM ; [facility] Taking medication 03/12/2020 Last Documented On 4 4:22PM ; [facility] Taking vitamin supplements 03/12/2020 Last Documented On 4 4:22PM ; [facility] Family History Includes: Family History addressed [...] Active Last Documented On 4 8:34AM ; [facility] Encounters Encounter Provider Location Date Check-In Time Check-Out Time Diagnosis RX ISSUE/REFILL FERNANDO BERMUDEZ 08/05/2023 4:22PM 11:59PM Insurance Includes: Active Insurance Policies Plan Name Member ID Group # Subscriber Relationship Effect nba Dates 1 - [facility] [id number] DAPHNE NICOLE Self Clinical Notes Includes: Clinical Notes from this encounter * Progress note Date Encounter Last Documented by 08/05/2023 RX ISSUE/REFILL Last documented on 08/06/2023; 9:52 AM, FERNANDO MIJARES ANP-; [facility] Active Problems & Conditions - Congenital Clotting Factor Deficiency Factor V - Depression Chronic - Dyslipidemia - Hypothyroidism - Overweight Chief Complaint Phone Call - Chief Concern: reason for call: Frances with Pharmacy calling.States that even though medication was approved through insurance. Insurance will only fill a MAX of 3 tablets a day for the Baclofen. Please either adjust Rx or send back to insurance to appeal. 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 Past Medical/Surgical History Reported: Surgery , tonsilectomy, gallbladder, apendix, left ovary removal. Medical: Currently wearing eyeglasses. Medications: Taking vitamin supplements. Dietary: Reported dietary history. : Previously 2 time(s) and aborta including 1 miscarriage(s). Reviewed and unchanged since last visit. Current Medication - Acetaminophen-Codeine 300-60 MG Oral Tablet 1 every 6 hours as needed, max 4/day, 30 days, 0 refills - Baclofen 10 MG Oral Tablet TAKE [...] Allergies - traMADol HCl Plan StartCited - Other PHY ORDER/COMMENT spoke to you about this, let me know what insurance says. EndCited Care Team - CARMELO MCDANIEL-BC - Pain Management Health Reminders - Assess Tobacco Use satisfied 08/05/2023.
--- OUTSIDE RECORDS SUMMARY | 2024-06-30 16:44 | XMS_ITS | Clinical Summary ---
Author Organization [facility] Address [address] [place] [address] Phone Care Team Providers Care Street Car Mechanic Name Role Phone MARYANA ANP-BC, FERNANDO L Unavailable [phone] SAMUEL DELGADILLO, ERASTO Unavailable [phone] CALDERON GODOY PA-C Primary Care Provider [phone] Reason for Visit and Chief Complaint RX ISSUE/REFILL Problems Includes: Problems addressed during this encounter and other active Problems All Visits Onset Date Resolved Date Provider Condition S tatus Dyslipidemia 03/12/2020 FERNANDO L MARYANA ANP-BC Active Last Documented On 0 11:12AM ; [facility] 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 03/12/2020 FERNANDO L MARYANA ANP-BC Active Last Documented On 0 11:12AM ; [facility] Depression Chronic 03/12/2020 FERNANDO L MARYANA ANP-BC Active Last Documented On 0 11:12AM ; [facility] Hypothyroidism 03/12/2020 FERNANDO L MARYANA ANP- BC Active Last Documented On 0 11:11AM ; [facility] Overweight 03/12/2020 FERNANDO L MARYANA ANP-BC A ctive Last Documented On 0 11:12AM ; [facility] Plan of Treatment No Plan of Treatment Recorded Assessments Includes: Assessments from this encounter No Assessments Recorded Medical Equipment - Implanted Devices Includes: Current Devices No Medical Equipment Recorded Medications Includes: Medications discussed during this encounter and other current Medications New / Renewed during this visit MIHAI BERGER on 10/14/2023 Acetaminophen-Codeine 300-60 MG Oral Tablet Provider: MIHAI BERGER 30 day supply: 120 tablet, 0 refills Diagnosis: Multiple sclerosis 1 every 6 hours as needed, max 4/day Pharmacy: [address], [address] - Last Documented On 4 10:25AM By RHYS HOLM ; [facility] Current Medications (continue as prescribed) Baclofen 10 MG Oral Tablet 08/31/2023 Provider: Manav BERMUDEZ Diagnosis: TAKE 1 TABLET BY MOUTH EVERY 6 HOURS NEEDED Last Documented On 4 8:18AM By FERNANDO BERMUDEZ ; [facility] valACYclovir HCl 500 MG Oral Tablet 08/28/2023 Provi azucena: Diagnosis: Last Documented On 09/09/2023 8:33AM By Destiny SEGOVIA ; [facility] Levothyroxine Sodium 150 MCG Oral Tablet 05/18/2023 Provider: CALDERON GODOY PA-C Diagnosis: Last Documented On 06/16/2023 8:54AM By Destiny SEGOVIA ; [facility] Oyster Shell Calcium 500 MG Oral Tablet 01/02/2023 P roazaliader: CALDERON GODOY PA-C Diagnosis: Last Documented On 01/21/2023 8:49AM By Destiny SEGOVIA ; [facility] Naproxen Sodium ER 500 MG Oral Tablet Extended R elease 24 Hour 03/12/2020 Provider: Diagnosis: Last Documented On 3 1:26PM By RHYS HOLM ; [facility] Ocrevus 300 MG/10ML Intravenous Solution 03/12/2020 Provider: Diagnosis: Last Documented On 3 1:26PM By RHYS HOLM ; [facility] Medications Administered Includes: Administered Medications from this encounter No Administered Medications Recorded Results Includes: Results discussed during this encounter No Results Recorded For Specified Dates History of Present Illness Includes: History of Present Illness from this encounter No History of Present Illness Recorded Social History Description Last Updated Current smoker CANNIBIS 06/16/2023 Last Documented On 4 9:33AM ; [facility] Tobacco non-user 07/07/2022 Last Documented On 4 9:33AM ; [facility] Current nonsmoker 07/23/2020 Last Documented On 4 9:33AM ; [facility] No consumption of alcohol 03/12/2020 Last Documented On 4 9:33AM ; [facility] No tobacco use 03/12/2020 Last Documented On 4 9:33AM ; [facility] Using marijuana 03/12/2020 Last Documented On 4 9:33AM ; [facility] Non-smoker 03/12/2020 Last Documented On 4 9:33AM ; [facility] No menarche yet 03/12/2020 Last Documented On 4 9:33AM ; [facility] A high-salt diet not from processed food s 03/12/2020 Last Documented On 4 9:33AM ; [facility] A high-sugar diet not including sweet sn acks 03/12/2020 Last Documented On 4 9:33AM ; [facility] Diet does not need elimination of junk f ood 03/12/2020 Last Documented On 4 9:33AM ; [facility] Diet does not need reduction of caloric intake 03/12/2020 Last Documented On 4 9:33AM ; [facility] Diet provides sufficient food variety Last Documented On 4 9:33AM ; [facility] Diet provides sufficient fruit 0 Last Documented On 4 9:33AM ; [facility] Diet provides sufficient vegetables 02/25 Last Documented On 4 9:33AM ; [facility] No high-fat diet 03/12/2020 Last Documented On 4 9:33AM ; [facility] Smoking Status Unknown Medical History Includes: Medical History addressed during this encounter Description Last Updated Denies a fear of falling. 09/09/2023 Last Documented On 4 9:33AM ; [facility] Has had no fall in the last 12 months. 0 09/09/2023 Last Documented On 4 9:33AM ; [facility] 1 miscarriage(s) 03/12/2020 Last Documented On 4 9:33AM ; [facility] Currently wearing eyeglasses 03/12/2020 Last Documented On 4 9:33AM ; [facility] Previously 2 time(s) 03/12/2020 Last Documented On 4 9:33AM ; [facility] Surgery , tonsilectomy, gallbla dder, apendix, left ovary removal 03/12/2020 Last Documented On 4 9:33AM ; [facility] reviewed and unchanged since last visit 03/12/2020 Last Documented On 4 9:33AM ; [facility] Current toilet training has been complet ed 03/12/2020 Last Documented On 4 9:33AM ; [facility] No previous psychiatric treatment 2019 Last Documented On 4 9:33AM ; [facility] Reported dietary history 03/12/2020 Last Documented On 4 9:33AM ; [facility] Taking medication 03/12/2020 Last Documented On 4 9:33AM ; [facility] Taking vitamin supplements 03/12/2020 Last Documented On 4 9:33AM ; [facility] Family History Includes: Family History addressed during this encounter Description Last Updated Family history reviewed - unchanged sin e last visit 03/12/2020 Last Documented On 4 9:33AM ; [facility] Family history unchanged 03/12/2020 Last Documented On 4 9:33AM ; [facility] Review of Systems Includes: Review of Systems [...] Last Documented On 4 8:34AM ; [facility] Encounters Encounter Provider Location Date Check-In Time Check-Out Time Diagnosis RX ISSUE/REFILL HRYS CHAVEZLP PATIENT TRANSPORT OFFICER-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, DINING ROOM CASHIER-BC 10/14/2023 9:33AM 11:59PM Insurance Includes: Active Insurance Policies Plan Name Member ID Group # Subscriber Relationship Effect nba Dates 1 - [facility] [id number] DAPHNE Sewell MARYRENEA Self Clinical Notes Includes: Clinical Notes from this encounter * Progress note Date Encounter Last Documented by 10/14/2023 RX ISSUE/REFILL Last documented on 10/14/2023; 10:24 AM, RHYS CHAVEZLP PATIENT TRANSPORT OFFICER-FPA, DINING ROOM CASHIER-BC; [facility] Active Problems & Conditions - Congenital Clotting Factor Deficiency Factor V - Depression Chronic - Dyslipidemia - Hypothyroidism - Overweight Chief Complaint Phone Call - Chief Concern: Reason for call: Patient is requesting a refill on Acetaminophen with Codeine. ~How is medication taken? QID ~How many are left? 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 Current Medication - Acetaminophen-Codeine 300-60 MG Oral Tablet 1 every 6 hours as needed, max 4/daystart 09/15, 30 days, 0 refills - Baclofen 10 MG Oral Tablet TAKE 1 TABLET BY MOUTH EVERY 6 HOURS NEEDED, 30 days, 2 refills - Levothyroxine Sodium 150 MCG Oral [...] HCl 500 MG Oral Tablet One tablet twice a day 30 days, 0 refills Past Medical/Surgical History Reported: Surgery , tonsilectomy, gallbladder, apendix, left ovary removal. Medical: No previous psychiatric treatment. Currently wearing eyeglasses. Medications: Taking vitamin supplements. Physical Trauma: Has had no fall in the last 12 months. and Denies a fear of falling. Dietary: Reported dietary history. : Previously 2 time(s) and aborta including 1 miscarriage(s). Pediatric: Current toilet training has been completed. Reviewed and unchanged since last visit. Social History Current diet: No high-fat diet, a high-salt diet not from processed foods, and a high-sugar diet not including sweet snacks. Diet provides sufficient food variety, sufficient in fruit, sufficient in vegetables, diet does not need reduction of caloric intake, and no elimination of junk food. Tobacco use: No tobacco use. Current smoker CANNIBIS, current nonsmoker, and non-smoker. Alcohol: No consumption of alcohol. Drug Use: Using marijuana. No menarche yet. Allergies - traMADol HCl Family History Family history reviewed - unchanged since last visit Family history unchanged Plan StartCited - Multiple sclerosis Acetaminophen-Codeine 300-60 MG tablet 1 every 6 hours as needed, max 4/day, 30 days, 0 refills EndCited Care Team - CARMELO MCDANIEL- - Pain Management Health Reminders - Assess Tobacco Use satisfied 10/14/2023.
--- OUTSIDE RECORDS SUMMARY | 2024-06-30 16:45 | XMS_ITS | Data Portability ---
Author Organization [facility], [facility] ([place]) Address [address] [address] Care Team Providers [facility] [employer] Name Role Phone CALDERON GODOY Primary Care Provider Assessment Encounter Date Assessment Date Assessment LastModified by Organization Details LastModified Time 10/28/2023 10/28/2023 In summary, Leeann 's neurological examination today is consistent with very subtle pyramidal and posterior column signs. Baseline MRI show periventricular, callosal, cerebellar, cortical, subcortical, brainstem, and cervical cord lesions. When taken to account her clinical course, neurological examination, and room and neuroimaging, the diagnosis of multiple sclerosis felt to be correct. Given her good clinical response to Ocrelizumab, she will continue with this drug, and this will be her primary immunotherapy. Given recurrent HSV infection, its Ok to stay on maintenance acyclovir therapy to prevent future infection. While on acyclovir, your PCP need to monitor kidney function closely. Continue symptomatic MS therapies. Blood work will be performed including CBC and CMP. Mechanism of action, risks, and benefits of above MS disease modifying therapy (therapies) were discussed in detail. Risk for malignancy, and opportunistic infections for were also discussed in detail including risk for progressive multifocal leukoencephalopathy (PML). Patient was also informed that she may withdraw from any treatment option if she wishes to do so. No treatment, and just observation was also discussed as an option. Patient was highly involved in the entire decision making-process. Discussed importance of age appropriate immunization, and cancer screening. Live attenuated vaccine is contraindicated. Follow-up MRI will be performed yearly in order to evaluate disease activity, and response to treatment. Vitamin D, and B12,supplementation are encouraged to prevent deficiency,and disease progression. Regarding diet, you may try Mediterranean diet. This is a healthier option among patients with MS, because of less inflammatory properties compared to general diets. Mediterranean diet in general consists of olive oils, nuts, legumes, oats, beans, fruits, vegetables, lean meats, whole grains. Hydrate well with water, and try to avoid soda,and sweetened beverages. Discussed age appropriate immunization, and cancer screening with primary care physician. Recommended immunization (if no contraindication)- Flu, COVID pneumonia, and shinrgix. Recommended cancer screening- mammogram, Pap smear, colonoscopy, skin exam she have urinary frequency, and urgency. Will get U/A with reflex to culture. Answered all questions and concerns. Agreed with plans. Voiced understanding [email or web address] Not available 10/28/2023 14:54:34 01/25/2024 01/25/2024 In summary, Leeann 's neurological examination today is consistent with very subtle pyramidal and posterior column signs. Baseline MRI show periventricular, callosal, cerebellar, cortical, subcortical, brainstem, and cervical cord lesions. When taken to account her clinical course, neurological examination, and room and neuroimaging, the diagnosis of multiple sclerosis felt to be correct. Given her good clinical response to Ocrelizumab, she will continue with this drug, and this will be her primary immunotherapy. Given recurrent HSV infection, its Ok to stay on maintenance acyclovir therapy to prevent future infection. While on acyclovir, your PCP need to monitor kidney function closely. Continue symptomatic MS therapies. Blood work will be performed including CBC and CMP. Mechanism of action, risks, and benefits of above MS disease modifying therapy (therapies) were discussed in detail. Risk for malignancy, and opportunistic infections for were also discussed in detail including risk for progressive multifocal leukoencephalopathy (PML). Patient was also informed that she may withdraw from any treatment option if she wishes to do so. No treatment, and just observation was also discussed as an option. Patient was highly involved in the entire decision making-process. Discussed importance of age appropriate immunization, and cancer screening. Live attenuated vaccine is contraindicated. Follow-up MRI will be performed yearly in order to evaluate disease activity, and response to treatment. Vitamin D, and B12,supplementation are encouraged to prevent deficiency,and disease progression. Regarding diet, you may try Mediterranean diet. This is a healthier option among patients with MS, because of less inflammatory properties compared to general diets. Mediterranean diet in general consists of olive oils, nuts, legumes, oats, beans, fruits, vegetables, lean meats, whole grains. Hydrate well with water, and try to avoid soda,and sweetened beverages. Discussed age appropriate immunization, and cancer screening with primary care physician. Recommended immunization (if no contraindication)- Flu, COVID pneumonia, and shinrgix. Recommended cancer screening- mammogram, Pap smear, colonoscopy, skin exam Answered all questions and concerns. Agreed with plans. Voiced understanding I understand that [facility] provides telehealth consultations, which are conducted through videoconferencing technology and my healthcare provider will not be present in the exam room with me. I understand there are potential risks to the use of telehealth technology, including but not limited to, interruptions, delays, unauthorized access, and or other technical difficulties. I understand that either my healthcare provider or I can discontinue the telehealth appointment if the technical connections are not adequate for my visit. I have had the alternatives to a telemedicine consultation explained to me and am choosing to participate in a telemedicine consultation. I understand that my healthcare information may be shared with others for scheduling or billing purposes. I understand that individuals other than my provider or any consulting health care provider may be present during the telehealth appointment, in order to operate the telehealth technology. I further understand that I will be informed of their presence, and that any such individuals will maintain the confidentiality of my patient information. I understand that I have the right to request the following when others are present: (1) omit specific details of my medical/physical examination that are personally sensitive to me; (2) ask non-medical individual to leave the telehealth examination room; and/or (3) terminate the telehealth appointment at any time. In an emergent situation, I understand that the responsibility of my telehealth provider may be to direct me to emergency medical services, such as an emergency room. I understand that my unauthorized recording (audio, video, still photography, etc.) of my telehealth with a [facility] provider is strictly prohibited. By acknowledging, I certify that I have read this form and/or had it explained to me, that I understand the risks and benefits of a telehealth appointment, that I have been given the opportunity to ask questions and that such questions have been answered to my satisfaction [email or web address] Not available 01/25/2024 09:32:12 05/09/2024 05/09/2024 In summary, Leeann 's neurological examination today is consistent with very subtle pyramidal and posterior column signs. Baseline MRI show periventricular, callosal, cerebellar, cortical, subcortical, brainstem, and cervical cord lesions. When taken to account her clinical course, neurological examination, and room and neuroimaging, the diagnosis of multiple sclerosis felt to be correct. Given her good clinical response to Ocrelizumab, she will continue with this drug, and this will be her primary immunotherapy. Given recurrent HSV infection, its Ok to stay on maintenance acyclovir therapy to prevent future infection. While on acyclovir, your PCP need to monitor kidney function closely. Continue symptomatic MS therapies. Blood work will be performed including CBC and CMP. Mechanism of action, risks, and benefits of above MS disease modifying therapy (therapies) were discussed in detail. Risk for malignancy, and opportunistic infections for were also discussed in detail including risk for progressive multifocal leukoencephalopathy (PML). Patient was also informed that she may withdraw from any treatment option if she wishes to do so. No treatment, and just observation was also discussed as an option. Patient was highly involved in the entire decision making-process. Discussed importance of age appropriate immunization, and cancer screening. Live attenuated vaccine is contraindicated. Follow-up MRI will be performed yearly in order to evaluate disease activity, and response to treatment. Vitamin D, and B12,supplementation are encouraged to prevent deficiency,and disease progression. Regarding diet, you may try Mediterranean diet. This is a healthier option among patients with MS, because of less inflammatory properties compared to general diets. Mediterranean diet in general consists of olive oils, nuts, legumes, oats, beans, fruits, vegetables, lean meats, whole grains. Hydrate well with water, and try to avoid soda,and sweetened beverages. Discussed age appropriate immunization, and cancer screening with primary care physician. Recommended immunization (if no contraindication)- Flu, COVID pneumonia, and shinrgix. Recommended cancer screening- mammogram, Pap smear, colonoscopy, skin exam Answered all questions and concerns. Agreed with plans. Voiced understanding I understand that [facility] provides telehealth consultations, which are conducted through videoconferencing technology and my healthcare provider will not be present in the exam room with me. I understand there are potential risks to the use of telehealth technology, including but not limited to, interruptions, delays, unauthorized access, and or other technical difficulties. I understand that either my healthcare provider or I can discontinue the telehealth appointment if the technical connections are not adequate for my visit. I have had the alternatives to a telemedicine consultation explained to me and am choosing to participate in a telemedicine consultation. I understand that my healthcare information may be shared with others for scheduling or billing purposes. I understand that individuals other than my provider or any consulting health care provider may be present during the telehealth appointment, in order to operate the telehealth technology. I further understand that I will be informed of their presence, and that any such individuals will maintain the confidentiality of my patient information. I understand that I have the right to request the following when others are present: (1) omit specific details of my medical/physical examination that are personally sensitive to me; (2) ask non-medical individual to leave the telehealth examination room; and/or (3) terminate the telehealth appointment at any time. In an emergent situation, I understand that the responsibility of my telehealth provider may be to direct me to emergency medical services, such as an emergency room. I understand that my unauthorized recording (audio, video, still photography, etc.) of my telehealth with a [facility] provider is strictly prohibited. By acknowledging, I certify that I have read this form and/or had it explained to me, that I understand the risks and benefits of a telehealth appointment, that I have been given the opportunity to ask questions and that such questions have been answered to my satisfaction [email or web address] Not available 05/07/2024 10:14:11 Plan of Treatment Reminders Order Date Submit Date Provider Last Modified By Organization Details Last Modified Time Details Appointments Establi shed Patient 20.EST 2024 11:40A M Dr. Cj Ross Not available Not available Not available Lab CBC w/ auto diff 2024 025 [facility], [address] [place] [address], [id number], 05/30/2024 07:05:41 CMP, serum or plasma 2024 025 [facility], [address] [place] [address], [id number], 05/30/2024 07:05:41 immunog lobulin s iga+igg +igm, quantit ative, serum 2024 025 [email or web address], [address] [place] [address], [id number], 06/15/2024 08:55:05 urinaly sis complet e, reflex culture 2023 024 [email or web address], [address] [place], [address], 02/22/2024 09:08:19 CBC w/ auto diff 2023 024 [email or web address], [address] [place] [address], [id number], 02/22/2024 09:08:18 CMP, serum or plasma 2023 024 [email or web address], [address] [place] [address], [id number], 02/22/2024 09:08:19 vitamin B12, serum 2023 024 [email or web address], [address] [place] [address], [id number], 02/22/2024 09:08:19 1,25-di hydroxy vitamin D, QN, serum or plasma 2023 024 [email or web address], [address] [place] [address], [id number], 02/22/2024 09:08:19 immunog lobulin s iga+igg +igm, quantit ative, serum 2023 024 [email or web address], [address] [place] [address], [id number], 02/22/2024 09:08:19 urinaly sis complet e, reflex culture 2023 024 [facility], [address] [place] [address], [id number], 10/31/2023 12:45:48 Referral None recorde d. Procedures None recorde d. Surgeries None recorde d. Imaging None recorde d. Medication Orders None recorde d. Patient TargetsNo targets recorded. Patient InstructionsNo instructions recorded. Reason for Referral None Reported. Results Created Date Observation Date Name Description Value Unit Range Abnormal Flag Note LastModifiedBy Organization Detail LastModifiedTime 01/19/20 24 01/19/2024 MRI, brain , w/wo contr ast [place] [id number] [address] Teleph one [phone] Name: Rogers Sorto [facility] 8077 Exam Date: 2023 Age: 48 Physic ulises: Felipe steen MD, Cj : 1975 Examin ation: MRI BRAIN W AND WO CONTRA ST EXAMIN ATION: MRI brain INDICA TION: survei llance of MS progre ssion COMPAR RAMILA: MRI brain 023. TECHNI QUE: This examin ation includ es T1-eva ghted images pre- and postco ntrast as well as T2-eva ghted, FLAIR, gradie nt-ech o, and diffus ion weight ed images . 15 mL of Dotare m gadoli nium were inject ed at the right antecu bital fossa, withou t incide nt. FINDIN GS: There are multif ocal T2/fla ir hyperi ntense signal abnorm alitie s in the perive ntricu lar, deep, and subcor tical white matter the cerebr al hemisp heres, many of which are perpen dicula rly orient ed relati ve to the latera l ventri cles, and with involv ement of the corpus callos um, in keepin g with chroni c demyel inatin g plaque s from multip le sclero sis. Plaque burden appear s stable compar ed to prior MRI. No abnorm al enhanc ement to sugges t active demyel inatio n. No infrat entori al plaque s are seen.. No pathol ogic parenc hymal, mening eal, or pachym eninge al enhanc ement. No restri cted diffus ion to indica te acute infarc tion. No eviden ce of intrac ranial hemorr preston. No intrac ranial mass lesion or mass effect . Brain parenc hymal volume is within normal limits for age. No hydroc ephalu s. Basila r cister ns are preser jenni. The major intrac ranial vascul ar flow voids are intact . Orbits are unrema rkable . The parana rosalina sinuse s and mastoi d air cells are well aerate d. Bones and extra crania l soft tissue s are unrema rkable . IMPRES CONCHIS: Stable chroni c demyel inatin g plaque s in the suprat entori al brain compar ed to prior MRI from 023. No new plaque s. No eviden ce of active demyel inatio n. Electr onical ly signed in [place] cribe by: OSWALD HAMMOND MD on:12/27 12:34 PM cc: Page PAGE 1 of [facility] 1 [email or web address] [address] [place] [address], [id number], 01/20/2024 18:12:04 01/19/20 24 01/19/2024 MRI, cervi linda spine , w/wo contr ast [facility] [address] [place] [address] Tele one [phone] Name: Rogers Sorto [facility] 6873 Exam Date: 2023 Age: 48 Physic ulises: Felipe steen MD, Cj : 1975 Examin ation: MRI CERVIC AL W AND WO CONTRA ST EXAM: MRI CERVIC AL W AND WO CONTRA ST HISTOR Y: survei llance of MS progre ssion COMPAR RAMILA: MRI cervic al spine 023. TECHNI QUE: MRI of the cervic al spine before and after the uneven tful intrav enous admini strati on of 15 cc Dotare m at the right antecu bital fossa. T1-eva ghted, T2-eva ghted, STIR weight ed, and proton densit y weight ed images were obtain ed. FINDIN GS: There are multif ocal T2/STI R hyperi ntense intram edulla ry signal abnorm alitie s in the cervic al spinal cord, in keepin g with chroni c demyel inatin g plaque s given histor y of multip le sclero sis, includ ing involv ement of the cord at the C2, C3, C4, C5-6, and C6-7 levels . Chroni c demyel inatin g plaque s also noted in the partia lly imaged upper thorac ic cord, with associ ated cord volume loss at T2-3, simila r to prior MRI. The cervic al spinal cord is normal in calibe r. Normal cord positi oning. No pathol ogic enhanc ement to sugges t active demyel inatio n. There is normal alignm ent. Verteb ral body height s are preser jenni. Benign intrao sseous ac ioma noted in the upper thorac ic spine. There are mild degene rative endpla te signal change s at C5-6. No worris ome focal osseou s lesion s. Visual ized forensic anthropologist ior fossa conten ts and parasp inal soft tissue s are unrema rkable . Findin gs by indivi dual disc level are as follow s: C2-3: No disc bulge or hernia tion. No spinal canal or forami nal stenos is. C3-4: Tiny centra l disc protru conchis. No signif icant spinal canal or forami nal stenos is. C4-5: Uncove rtebra l hypert rophy and facet hypert rophy on the right. No signif icant canal or forami nal stenos is. C5-6: Mild disc osteop hyte comple x result ing in mild spinal canal stenos is with ventra l contac t on the spinal cord surfac e. Dorsal CSF spaces are preser jenni. Uncove rtebra l hypert rophy result ing in modera te left and mild right forami nal stenos is. C6-7: Mild disc bulge withou t canal or forami nal stenos is. C7-T1: No disc bulge or hernia tion. No canal or forami nal stenos is. IMPRES CONCHIS: 1. Multif ocal chroni c demyel inatin g plaque s in the cervic al spinal cord and partia lly imaged upper thorac ic spinal cord, stable compar ed to prior MRI from 023. No new plaque s. No eviden ce of active demyel inatio n. 2. Stable degene rative disc diseas e and uncove rtebra l hypert rophy, again worst at C5-6 where findin gs includ e modera te forami nal stenos is and mild canal stenos is. See above for detail s. Electr onical ly signed in [place] cribe by: OSWALD HAMMOND MD on:12/27 12:41 PM cc: Page PAGE 1 of [facility] 1 [email or web address] [address] [place] [address], [id number], 01/20/2024 18:12:04 Result Notes None recorded. Problems Name Problem SNOMED Code Status Onset Date Resolution Date Notes Provider Name and Address Organization Details Recorded Time Multiple sclerosis 09910529 Active 024 Cj vyas MD [address] [place] [address], [phone], [facility] 5 13:18:09 Acute urinary tract infection 548088370 Active 024 Cj vyas MD [address] [place] [address], [phone], [facility] 4 14:29:36 Problem Notes None recorded. Procedures Surgical History None recorded. Imaging Results Imaging Date Name Status [facility]Modified by [facility] Details LastModified Time 01/19/2024 MRI, brain, w/wo contrast completed [email or web address] [address] [place] [address], [id number], 01/20/2024 18:12:04 01/19/2024 MRI, cervical spine, w/wo contrast completed [email or web address] [address], [place], [address], 01/20/2024 18:12:04 Procedure Notes None recorded. Medical Equipment None Reported. Allergies Allergen ID Allergen Name Allergen Category Reaction Reaction Severity Criticality Documentation Date Start Date Code Code System Note Provider Name and Address Organization Details Recorded Time 463505 tramadol Not available Not available Not available Not available 05/25/20232022 64318 RxNorm React ion: Other : Can't take with MS medic ation ; Not Available Not Available Not Available 622163 honey bee venom environme nt other Not available Not available 05/25/20232022 22345 7 RxNorm React ion: Unkno wn to Patie nt; Comme nt: Bee sting ; Not Available Not Available Not Available 196451 wheat gluten extract food other Not available Not available 05/25/20232022 51740 81 RxNorm React ion: Unkno wn to Patie nt; Comme nt: Glute n ; Not Available Not Available Not Available Medications Name Sig Start Date Stop Date Status Note LastModified by Organization Details LastModified Time triamcinolo ne acetonide 0.5 % topical cream APPLY CREAM TOPICALLY TO AFFECTED AREA TWICE DAILY active Not Available Not Available No t Available fluconazole 150 mg tablet TAKE 1 TABLET BY MOUTH NOW AND AGAIN IN 72 HOURS active Not Available Not Available No t Available sulfamethox azole 400 mg-trimetho prim 80 mg tablet TAKE 1 TABLET BY MOUTH EVERY 12 HOURS FOR 10 DAYS 05/02 completed Not Available Not Available Not Available phenazopyri dine 200 mg tablet TAKE 1 TABLET BY MOUTH THREE TIMES DAILY 10/18 completed Not Available Not Available Not Available metronidazo le 500 mg tablet TAKE 1 TABLET BY MOUTH TWICE DAILY FOR 7 DAYS active Not Available Not Available No t Available valacyclovi r 500 mg tablet TAKE 1 TABLET BY MOUTH TWICE DAILY active Not Available Not Available No t Available ciprofloxac in 500 mg tablet TAKE 1 TABLET BY MOUTH EVERY 12 HOURS FOR 5 DAYS 05/02 completed Not Available Not Available Not Available sulfamethox azole 800 mg-trimetho prim 160 mg tablet TAKE 1 TABLET BY MOUTH TWICE DAILY FOR 7 DAYS 10/18 completed Not Available Not Available Not Available baclofen 10 mg tablet TAKE 1 TABLET BY MOUTH EVERY 6 HOURS NEEDED active Not Available Not Available No t Available cephalexin 500 mg capsule TAKE 1 CAPSULE BY MOUTH EVERY 6 HOURS FOR 7 DAYS active Not Available Not Available No t Available triamcinolo ne acetonide 0.1 % topical ointment APPLY A THIN LAYER TOPICALLY TO THE AFFECTED AREA TWICE DAILY NEEDED FOR 7 DAYS active Not Available Not Available No t Available levothyroxi ne 150 mcg tablet TAKE 1 TABLET BY MOUTH ONCE DAILY FOR 90 DAYS active Not Available Not Available No t Available acetaminoph en 300 mg-codeine 60 mg tablet TAKE 1 TABLET BY MOUTH EVERY 6 HOURS NEEDED (MAX 4 TABS A DAY) active Not Available Not Available No t Available ondansetron 4 mg disintegrat ing tablet DISSOLVE 1 TABLET IN MOUTH EVERY 8 HOURS NEEDED FOR NAUSEA AND VOMITING active Not Available Not Available No t Available naproxen 500 mg tablet TAKE 1 TABLET BY MOUTH TWICE DAILY. APPOINTME NT REQUIRED FOR FUTURE REFILLS. active Not Available Not Available No t Available Oyster Shell Calcium-500 500 mg (as carbonate 1,250 mg) tablet TAKE 1 TABLET BY MOUTH TWICE DAILY active Not Available Not Available No t Available nitrofurant oin monohydrate /macrocryst als 100 mg capsule TAKE 1 CAPSULE BY MOUTH TWICE DAILY FOR 7 DAYS 05/02 completed Not Available Not Available Not Available Ocrevus 30 mg/mL intravenous solution Infuse 600mg once yearly 2024 active Not Available Not Available Not Avai lable Vitals Date Recorded Body height Body mass index (BMI) Body weight Heart rate Oxygen saturation Oxygen saturation in Arterial blood by Pulse oximetry Systolic blood pressure Diastolic blood pressure Provider Name and Address Organization Details Last Updated DateTime 4 165.1 cm 28.5 kg/m2 51440.3 g 65 /min 99 % 99 % 122 mm[Hg] 66 mm[Hg] [facility] 4 13:45:41 Social History None recorded. Functional Status None recorded. Mental Status None recorded. Family History Relationship Description Onset Age of this Age Resolved Age Notes LastModified by Organization Details LastModified Time Father No current problems or disability [email or web address] Not available 10/27 13:46:20 Mother No current problems or disability [email or web address] Not available 10/27 13:46:20 Medical History No medical history recorded. Gynecological HistoryNo gynecological history recorded. Obstetrics History GPAL:G 0 P 0 0 0 0 Past Encounters Encounter ID Performer Location Encounter Start Date Encounter Closed Date Diagnosis/Indication Diagnosis SNOMED-CT Code Diagnosis ICD10 Code Diagnosis Note [id number] C[facility] [place] ([place]) [address] [place] [address] 10/28/2023 13:27:03 10/28/2023 16:35:44 Multiple sclerosis 03956715 G35 Taking hig h risk medication [id number] 21532 Z91.89 Prophylact ic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
--- OUTSIDE RECORDS SUMMARY | 2024-06-30 16:45 | XMS_ITS | Clinical Summary ---
Author Organization [facility] Address [address] [place] [address] Phone Care Team Providers Care Microwave Supervisor Name Role Phone MARYANA ANP-BC, FERNANDO L Unavailable [phone] SAMUEL DELGADILLO, ERASTO Unavailable [phone] CALDERON GODOY PA-C Primary Care Provider [phone] Reason for Visit and Chief Complaint The Chief Complaint is: Random UDS and pill count Problems Includes: Problems addressed during this encounter and other active Problems All Visits Onset Date Resolved Date Provider Condition S tatus Dyslipidemia 03/12/2020 FERNANDO L MARYANA ANP-BC Active Last Documented On 0 11:12AM ; [facility] 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 03/12/2020 FERNANDO L MARYANA ANP-BC Active Last Documented On 0 11:12AM ; [facility] Depression Chronic 03/12/2020 FERNANDO L MARYANA ANP-BC Active Last Documented On 0 11:12AM ; [facility] Hypothyroidism 03/12/2020 FERNANDO L MARYANA ANP- BC Active Last Documented On 0 11:11AM ; [facility] Overweight 03/12/2020 FERNANDO L MARYANA ANP-BC A ctive Last Documented On 0 11:12AM ; [facility] Plan of Treatment Urine sample ordered and sent to lab for testing with confirmation via LCMS when appropriate. Urine drug testing is ordered to monitor opioid use and ongoing candidacy; verify compliant use of controlled substances and monitor for use of illicit substances as these may result in harmful interactions. 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 - Last Documented On 10/14/2023 9:22AM ; [facility] - [G89.4 - Chronic pain syndrome] Chronic pain syndrome - Last Documented On 10/14/2023 9:22AM ; [facility] - [Z79.891 - intermediate (current) use of opiate analgesic] intermediate use of opiate analgesic - Last Documented On 10/14/2023 9:22AM ; [facility] Instructions Includes: Instructions from this encounter Education and Decision Aids were provided during visit for: Pill Count: ten TYLENOL #4 Last Documented On 4 8:51AM ; [facility] Medical Equipment - Implanted Devices Includes: Current Devices No Medical Equipment Recorded Medications Includes: Medications discussed during this encounter and other current Medications Current Medications (continue as prescribed) Acetaminophen-Codeine 300-60 MG Oral Tablet 10/14/2023 Provider: MAT BERGER- Diagnosis: Multiple scleros is 1 every 6 hours as needed, max 4/day Last Documented On 4 10:25AM By RHYS RIVERO- ; [facility] Baclofen 10 MG Oral Tablet 08/31/2023 Provider: Manav BERMUDEZ Diagnosis: TAKE 1 TABLET BY MOUTH EVERY 6 HOURS NEEDED Last Documented On 4 8:18AM By FERNANDO RHODES- ; [facility] valACYclovir HCl 500 MG Oral Tablet 08/28/2023 Provi azucena: Diagnosis: Last Documented On 09/09/2023 8:33AM By Destiny SEGOVIA ; [facility] Levothyroxine Sodium 150 MCG Oral Tablet 05/18/2023 Provider: CALDERON GODOY PA-C Diagnosis: Last Documented On 06/16/2023 8:54AM By Destiny SEGOVIA ; [facility] Oyster Shell Calcium 500 MG Oral Tablet 01/02/2023 Buddy rider: CALDERON GODOY PA-C Diagnosis: Last Documented On 01/21/2023 8:49AM By Destiny SEGOVIA ; [facility] Naproxen Sodium ER 500 MG Oral Tablet Extended R elease 24 Hour 03/12/2020 Provider: Diagnosis: Last Documented On 3 1:26PM By RHYS HOLM ; [facility] Ocrevus 300 MG/10ML Intravenous Solution 03/12/2020 Provider: Diagnosis: Last Documented On 3 1:26PM By RHYS HOLM ; [facility] Medications Administered Includes: Administered Medications from this encounter No Administered Medications Recorded Vital Signs Includes: Vital Signs from this encounter Vital Name 10/14/2023 08:53A Temp-Temporal 97.2 Height (in) 55 Weight (lb) 168 Body Mass Index 39 Body Surface Area 1.6 Last Documented: On 10/14/2023 8:53AM ; [facility] Results Includes: Results discussed during this encounter No Results Recorded For Specified Dates History of Present Illness Includes: History of Present Illness from this encounter HPI Pain Location: entire spine Quality: deep, sharp, burning, aching, stinging, shooting, throbbing, numbRadiation: legs Severity: tha-sa-xefObevxp: continuousAssociated Sx: weakness, nausea/vomiting, falls, dizziness, tremorsAggravating Factors:lying, in/out car, stairs, walking, bowel mvmt, sound, lifting, bending, lightPast Tx: PT DAPHNE NICOLE is a 48 year old female. - Allergy list reviewed - Problem list reviewed - Medication reconciliation performed - Medication list reviewed - Prescription Drug Monitoring Program website checked. 09/16/2023 - How much of the medication are you taking a day? QID - Last dose of medication? Today - Last drug screen appropriate 09/09/2023 Discussion: Patient returns in follow-up for medication management she suffers from MS and is prescribed Tylenol #4 for chronic pain. This does help and allows her to maintain function levels with improvement in overall quality of life. She does use medical marijuana as well. She is outside of her injection window and pain has been somewhat worse lately. Baclofen is used 4 times daily with additional relief. She has no new complaints today. She will need a refill in the next week. [place] CORN CUTTER OPERATOR appropriate. Last UDS appropriate, this will be repeated today Prior visit: Patient presents in follow up for medication management. She is on tylenol #4 for chronic pain related MS. Medication helps her maintain function levels. She uses medical marijuana as well. She has no new complaints today. She does need a refill today. Pharmacy is only filling #90 baclofen as opposed to #120 baclofen. We will check into this. She continues counselor for depression and after a divorce. She discusses ongoing problems with family dynamics. Past note: Patient here for routine follow-up and medication management for chronic pain related to MS and muscle spasticity. She is managed on tylenol #4 as needed with benefit. She also utilizes marijuana for symptoms relief. She is somewhat down today and reports a lot going on with her counseling sessions, but notes it is helping overall. She does not need a refill of Tylenol #4 at this time. Medication helps and allows maintain function levels. She has no new complaints. Past note: Patient has been on Tylenol with codeine for several years. She reports this causes her quite a bit of nausea. Recently exacerbated by an intermittent liquid diet. Reports she has had multiple dental procedures and will have to undergo multiple more in the near future. She would like to consider changing her medication due to the nausea. It is quite bothersome to her. Otherwise, no other side effects. Symptoms are stable and unchanged. [place] prescription monitoring and UDS have been appropriate. PRIOR VISIT: Patient presents in follow up. Complaints remain unchanged. She describes chronic pain related to MS. She describes low back pain and spasticity in extremities. Knee pain is doing better at this time. Tylenol #4 is used daily with modest benefit as well as baclofen for spasticity. She does use medical marijuana for additional relief. Medication allows her to maintain function levels for the most part. She denies side effects and would like to continue the medication. [place]. Social History Description Last Updated Current smoker CANNIBIS 06/16/2023 Last Documented On 4 8:49AM ; [facility] Tobacco non-user 07/07/2022 Last Documented On 4 8:49AM ; [facility] Current nonsmoker 07/23/2020 Last Documented On 4 8:49AM ; [facility] No consumption of alcohol 03/12/2020 Last Documented On 4 8:49AM ; [facility] No tobacco use 03/12/2020 Last Documented On 4 8:49AM ; [facility] Using marijuana 03/12/2020 Last Documented On 4 8:49AM ; [facility] Non-smoker 03/12/2020 Last Documented On 4 8:49AM ; [facility] No menarche yet 03/12/2020 Last Documented On 4 8:49AM ; [facility] A high-salt diet not from processed food s 03/12/2020 Last Documented On 4 8:49AM ; [facility] A high-sugar diet not including sweet sn acks 03/12/2020 Last Documented On 4 8:49AM ; [facility] Diet does not need elimination of junk f ood 03/12/2020 Last Documented On 4 8:49AM ; [facility] Diet does not need reduction of caloric intake 03/12/2020 Last Documented On 4 8:49AM ; [facility] Diet provides sufficient food variety Last Documented On 4 8:49AM ; [facility] Diet provides sufficient fruit 0 Last Documented On 4 8:49AM ; [facility] Diet provides sufficient vegetables 02/25 Last Documented On 4 8:49AM ; [facility] No high-fat diet 03/12/2020 Last Documented On 4 8:49AM ; [facility] Smoking Status Unknown Procedures and Surgical History Includes: Procedures from this encounter Procedures Code Diagnosis Performing Provider Service L ocation Service Date CLINIC VISIT T1015 Chronic pain syndrome, Multiple sclerosis, termination clerk (current) use of opiate analgesic RHYS DONNELLY TASSEL MAKING MACHINE OPERATOR-FPA, HOME CARE MANAGER-BC [facility] 10/14/2023 Last Documented On 4 3:42PM ; [facility] use of tobacco assessment performed 1000F Last Documented On 4 8:50AM ; [facility] standardized depression screening: negative for symptoms 3351F Last Documented On 4 8:50AM ; [facility] review of medications documented 1160F Last Documented On 4 8:50AM ; [facility] assessment of suicide risk performed Last Documented On 4 8:50AM ; [facility] screening for adult depression: impressi on and score two Last Documented On 4 8:50AM ; [facility] SOAPP-R: total score 19 16 Last Documented On 4 8:50AM ; [facility] Medical History Includes: Medical History addressed during this encounter Description Last Updated Denies a fear of falling. 09/09/2023 Last Documented On 4 8:49AM ; [facility] Has had no fall in the last 12 months. 0 09/09/2023 Last Documented On 4 8:49AM ; [facility] 1 miscarriage(s) 03/12/2020 Last Documented On 4 8:49AM ; [facility] Currently wearing eyeglasses 03/12/2020 Last Documented On 4 8:49AM ; [facility] Previously 2 time(s) 03/12/2020 Last Documented On 4 8:49AM ; [facility] Surgery , tonsilectomy, gallbla dder, apendix, left ovary removal 03/12/2020 Last Documented On 4 8:49AM ; [facility] reviewed and unchanged since last visit 03/12/2020 Last Documented On 4 8:49AM ; [facility] Current toilet training has been complet ed 03/12/2020 Last Documented On 4 8:49AM ; [facility] No previous psychiatric treatment 2019 Last Documented On 4 8:49AM ; [facility] Reported dietary history 03/12/2020 Last Documented On 4 8:49AM ; [facility] Taking medication 03/12/2020 Last Documented On 4 8:49AM ; [facility] Taking vitamin supplements 03/12/2020 Last Documented On 4 8:49AM ; [facility] Family History Includes: Family History addressed during this encounter Description Last Updated Family history reviewed - unchanged sinc e last visit 03/12/2020 Last Documented On 4 8:49AM ; [facility] Family history unchanged 03/12/2020 Last Documented On 4 8:49AM ; [facility] Review of Systems Includes: Review of Systems from this encounter Systemic: No systemic symptoms other then noted and no systemic symptoms other than noted. General overall feeling, feeling tired, and recent weight change. No recent weight loss. Head: Headache chronic/recurring. Neck: No neck pain. Cardiovascular: Cold hands or feet. Pulmonary: No pulmonary symptoms other than noted. Shortness of breath. Gastrointestinal: Decreased appetite and constipation. Endocrine: Temperature intolerance and muscle weakness. Hematologic: A tendency for easy bruising. No tendency for easy bruising. Musculoskeletal: Back pain, muscle aches, pain localized to one or more joints, and joint swelling localized to one or more joints. Neurological: Dizziness. No fainting passing out with needles or medical procedures. Memory lapses or loss, convulsions, a tremor, and numbness. Psychological: Feeling nervous, depression, and insomnia. Skin: No skin symptoms other than noted. Dry skin. Mental Status Includes: Mental Status from this encounter Description Memory lapses or loss Functional Status Includes: Functional Status from this encounter No Functional Status Recorded Physical Exam Includes: Physical Exam from this encounter Allergies Includes: Active Allergies Substance Type Reaction Onset Date Resolved Date Statu s traMADol HCl Allergy 10/09/2020 Active Last Documented On 4 8:34AM ; [facility] Encounters Encounter Provider Location Date Check-In Time Check-Out Time Diagnosis URINE RECHECK RHYS DONNELLY TASSEL MAKING MACHINE OPERATOR-FPA, HOME CARE MANAGER-BC [facility] 10/14/19 24 9:15AM 8:56AM Chronic Pain Syndrome,Mult iple Sclerosis Brain Stem,Analyst Use of Opiate Analgesic Insurance Includes: Active Insurance Policies Plan Name Member ID Group # Subscriber Relationship Effect nba Dates 1 - [facility] [id number] DAPHNE NICOLE Self Clinical Notes Includes: Clinical Notes from this encounter * Progress note Date Encounter Last Documented by 10/14/2023 URINE RECHECK Last documented on 10/14/2023; 9:22 AM, RHYS Trevino CONY TASSEL MAKING MACHINE OPERATOR-FPA, HOME CARE MANAGER-BC; [facility] Active Problems & Conditions - Congenital Clotting Factor Deficiency Factor V - Depression Chronic - Dyslipidemia - Hypothyroidism - Overweight Chief Complaint The Chief Complaint is: Random UDS and pill count. History of Present Illness Pain Location: entire spine Quality: deep, sharp, burning, aching, stinging, shooting, throbbing, numb Radiation: legs Severity: mod-to-sev Timing: continuous Associated Sx: weakness, nausea/vomiting, falls, dizziness, tremors Aggravating Factors:lying, in/out car, stairs, walking, bowel mvmt, sound, lifting, bending, light Past Tx: PT DAPHNE NICOLE is a 48 year old female. - Allergy list reviewed - Problem list reviewed - Medication reconciliation performed - Medication list reviewed - Prescription Drug Monitoring Program website checked. 09/16/2023 - How much of the medication are you taking a day? QID - Last dose of medication? Today - Last drug screen appropriate 09/09/2023 Discussion: Patient returns in follow-up for medication management she suffers from MS and is prescribed Tylenol #4 for chronic pain. This does help and allows her to maintain function levels with improvement in overall quality of life. She does use medical marijuana as well. She is outside of her injection window and pain has been somewhat worse lately. Baclofen is used 4 times daily with additional relief. She has no new complaints today. She will need a refill in the next week. [place] CORN CUTTER OPERATOR appropriate. Last UDS appropriate, this will be repeated today Prior visit: Patient presents in follow up for medication management. She is on tylenol #4 for chronic pain related MS. Medication helps her maintain function levels. She uses medical marijuana as well. She has no new complaints today. She does need a refill today. Pharmacy is only filling #90 baclofen as opposed to #120 baclofen. We will check into this. She continues counselor for depression and after a divorce. She discusses ongoing problems with family dynamics. Past note: Patient here for routine follow-up and medication management for chronic pain related to MS and muscle spasticity. She is managed on tylenol #4 as needed with benefit. She also utilizes marijuana for symptoms relief. She is somewhat down today and reports a lot going on with her counseling sessions, but notes it is helping overall. She does not need a refill of Tylenol #4 at this time. Medication helps and allows maintain function levels. She has no new complaints. Past note: Patient has been on Tylenol with codeine for several years. She reports this causes her quite a bit of nausea. Recently exacerbated by an intermittent liquid diet. Reports she has had multiple dental procedures and will have to undergo multiple more in the near future. She would like to consider changing her medication due to the nausea. It is quite bothersome to her. Otherwise, no other side effects. Symptoms are stable and unchanged. [place] prescription monitoring and UDS have been appropriate. PRIOR VISIT: Patient presents in follow up. Complaints remain unchanged. She describes chronic pain related to MS. She describes low back pain and spasticity in extremities. Knee pain is doing better at this time. Tylenol #4 is used daily with modest benefit as well as baclofen for spasticity. She does use medical marijuana for additional relief. Medication allows her to maintain function levels for the most part. She denies side effects and would like to continue the medication. [place]. Current Medication - Acetaminophen-Codeine 300-60 MG Oral [...] unchanged since last visit Family history unchanged Review Of Systems Systemic: No systemic symptoms other then noted and no systemic symptoms other than noted. General overall feeling, feeling tired, and recent weight change. No recent weight loss. Head: Headache chronic/recurring. Neck: No neck pain. Cardiovascular: Cold hands or feet. Pulmonary: No pulmonary symptoms other than noted. Shortness of breath. Gastrointestinal: Decreased appetite and constipation. Endocrine: Temperature intolerance and muscle weakness. Hematologic: A tendency for easy bruising. No tendency for easy bruising. Musculoskeletal: Back pain, muscle aches, pain localized to one or more joints, and joint swelling localized to one or more joints. Neurological: Dizziness. No fainting passing out with needles or medical procedures. Memory lapses or loss, convulsions, a tremor, and numbness. Psychological: Feeling nervous, depression, and insomnia. Skin: No skin symptoms other than noted. Dry skin. Physical Findings - Vitals taken 10/14/2023 08:53 am Temp-Temporal 97.2 F Height 55 in Weight 168 lbs Body Mass Index 39 kg/m2 Body Surface Area 1.6 m2 Musculoskeletal System: General/bilateral: Musculoskeletal Scales: Value Lumbar oswestry score 44 Psychiatric: Psychiatric: Value PHQ9 score: 2 HEENT: NC/AT. Anicteric. Clear Conjunctiva. PERRLA. MM's pink/moist. No discharge of EAC. Neck supple. Goiter present. CVS: No peripheral edema. Peripheral pulses palpable in all extremities. Pulmonary: Normal chest expansion. Spine/MSK: Tenderness lumbar and thoracic paraspinals. Tenderness lumbar facet and SI joints. Decrease range of motion lumbar spine in all planes. Gait: Not antalgic. No steppage gait. Neuro: Awake. Alert. Oriented x3. Psych: No apparent distress. Mood normal. Affect normal. No pain behaviors. Skin: No rashes. No pigment or temperature abnormalities. 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 Reports improvement in pain. Patient is able to maintain function levels with use of medication management. Reports no adverse side effects. Patient advised of risks and benefits of medication- including tolerance, dependence, addiction, constipation, itching, allergic reactions, sedation, impairment, respiratory depression or failure, development of hyperalgesia Patient was instructed on taking medication correctly; storing medication securely; disposing of medication properly and to never share medication. F/U 3 months Plan StartCited - termination clerk (current) use of opiate analgesic Lab: PRESCRIBED DRUGS, medMATCH(R) Lab: DRUG MONITORING, PANEL 6 WITH CONFIRMATION, URINE EndCited Urine sample ordered and sent to lab for testing with confirmation via LCMS when appropriate. Urine drug testing is ordered to monitor opioid use and ongoing candidacy; verify compliant use of controlled substances and monitor for use of illicit substances as these may result in harmful interactions. Practice Management Use of tobacco assessment performed Review of medications documented; Standardized depression screening: negative for symptoms and for adult impression and score two. Results of this interaction were communicated directly to the patient's referring and/or primary care provider. All imaging studies and test results discussed in the above document were personally reviewed and evaluated by the performing provider. Contents of this document have been edited for correctness, but may be subject to typographical or neuropsychologist errors. Verify all diagnoses, medications, dosages, and patient instructions with patient and/or the originator of this document. Care Team - CARMELO MCDANIEL- - Pain Management Health Reminders - Assess BMI satisfied 10/14/2023. - Assess Tobacco Use satisfied 10/14/2023. - Depression Screening satisfied 10/14/2023. - Follow up plan for Depression Screening satisfied 10/14/2023.
--- OUTSIDE RECORDS SUMMARY | 2024-06-30 16:45 | XMS_ITS ---
Author Organization [facility] Address [address] [place] [address] Phone Care Team Providers Care Slipper Maker Name Role Phone MARYANA ANP-BC, FERNANDO L Unavailable [phone] SAMUEL DELGADILLO, ERASTO Unavailable [phone] CALDERON GODOY PA-C Primary Care Provider [phone] Problems Includes: Active, inactive, and resolved Problems All Visits Onset Date Resolved Date Provider Condition S tatus Dyslipidemia 03/12/2020 FERNANDO L MARYANA ANP-BC Active Last Documented On 0 11:12AM ; [facility] 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 03/12/2020 FERNANDO L MARYANA ANP-BC Active Last Documented On 0 11:12AM ; [facility] Depression Chronic 03/12/2020 FERNANDO L MARYANA ANP-BC Active Last Documented On 0 11:12AM ; [facility] Hypothyroidism 03/12/2020 FERNNADO L MARYANA ANP- BC Active Last Documented On 0 11:11AM ; [facility] Overweight 03/12/2020 FERNANDO L MARYANA ANP-BC A ctive Last Documented On 0 11:12AM ; [facility] Plan of Treatment Education and Decision Aids were provided during visit for: Pill Count: ten TYLENOL #4 Last Documented On 4 8:51AM ; [facility] Pill Count: 26 TYLENOL #4 Last Documented On 4 8:35AM ; [facility] Pill Count: 0 TYLENOL #4 Last Documented On 4 8:55AM ; [facility] Pill Count: 94 TYLENOL #4 Last Documented On 3 8:52AM ; [facility] Pill Count: 102 TYLENOL #4 Last Documented On 3 8:48AM ; [facility] Pill Count: 30 TYLENOL #4 Last Documented On 3 8:35AM ; [facility] Pill Count: six TYLENOL #4 Last Documented On 3 8:55AM ; [facility] Pill Count: 16 HYDROCODONE Last Documented On 3 8:55AM ; [facility] Pill Count: 55 TYLENOL #4 Last Documented On 3 9:06AM ; [facility] Pill Count: 68 TYLENOL #4 Last Documented On 2 9:37AM ; [facility] Pill Count: 40 TYLENOL #4 Last Documented On 2 9:56AM ; [facility] Pill Count: 33 TYLENOL #4 Last Documented On 2 10:49AM ; [facility] Pill Count: 26 TYLENOL #4 Last Documented On 2 8:47AM ; [facility] Pill Count: eight 7TYLENOL # 4 Last Documented On 2 9:23AM ; [facility] Pill Count: 41 TYLENOL 4 Last Documented On 1 8:51AM ; [facility] Pill Count: seven 7YLENOL #3 Last Documented On 1 2:03PM ; [facility] Pill Count: 70 Appropriate Last Documented On 1 1:11PM ; [facility] Pill Count: Patient did not bring pain medication to appointment for pill count, per policy. Advised in order to continue to safely prescribe opioids, medication must be brought to each appointment Last Documented On 1 3:46PM ; [facility] Pill Count: Patient does not have pills today but just got them filled 10/03/20 Last Documented On 1 3:46PM ; [facility] Pill Count: 40 Last Documented On 1 10:13AM ; [facility] Assessments Includes: Assessments for all patient encounters Findings Encounter Date Chronic pain syndrome URINE RECHECK with RHYS CHAVEZLP HEALTH CARE ANALYST-FPA, ELEVATOR MECHANIC APPRENTICE-BC 10/14/2023 Last Documented On 4 9:22AM ; [facility] exterminator use of opiate analgesic URINE RECHECK with RHYS Trevino [facility] HEALTH CARE ANALYST-FPA, ELEVATOR MECHANIC APPRENTICE-BC 10/14/2023 Last Documented On 4 9:22AM ; [facility] 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 URINE RECHECK with RHYS CHAVEZLP HEALTH CARE ANALYST-FPA, ELEVATOR MECHANIC APPRENTICE-BC 10/14/2023 Last Documented On 4 9:22AM ; [facility] Chronic pain syndrome PAIN MANAGEMENT FO LLOW UP with FERNANDO L MARYANA ANP-BC 09/09/2023 Last Documented On 4 9:15AM ; [facility] exterminator use of opiate analgesic PAIN M ANAGEMENT FOLLOW UP with FERNANDO L MARYANA ANP-BC 09/09/2023 Last Documented On 4 9:15AM ; [facility] 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 PAIN MANAGEMENT FOLLOW UP with FERNANDO L MARYANA ANP-BC 09/09/2023 Last Documented On 4 9:15AM ; [facility] Chronic pain syndrome PAIN MANAGEMENT FO LLOW UP with FERNANDO L MARYANA ANP-BC 06/16/2023 Last Documented On 4 9:11AM ; [facility] exterminator use of opiate analgesic PAIN M ANAGEMENT FOLLOW UP with FERNANDO L MARYANA ANP-BC 06/16/2023 Last Documented On 4 9:11AM ; [facility] 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 PAIN MANAGEMENT FOLLOW UP with FERNANDO L MARYANA ANP-BC 06/16/2023 Last Documented On 4 9:11AM ; [facility] Chronic pain syndrome PAIN MANAGEMENT FO LLOW UP with FERNANDO L MARYANA ANP-BC 03/25/2023 Last Documented On 3 9:01AM ; [facility] residential use of opiate analgesic PAIN M ANAGEMENT FOLLOW UP with FERNANDO L MARYANA ANP-BC 03/25/2023 Last Documented On 3 9:01AM ; [facility] 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 PAIN MANAGEMENT FOLLOW UP with FERNANDO L MARYANA ANP-BC 03/25/2023 Last Documented On 3 9:01AM ; [facility] Chronic pain syndrome PAIN MANAGEMENT FO LLOW UP with FERNANDO L MARYANA ANP-BC 01/21/2023 Last Documented On 3 9:16AM ; [facility] residential use of opiate analgesic PAIN M ANAGEMENT FOLLOW UP with FERNANDO L MARYANA ANP-BC 01/21/2023 Last Documented On 3 9:16AM ; [facility] 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 PAIN MANAGEMENT FOLLOW UP with FERNANDO L MARYANA ANP-BC 01/21/2023 Last Documented On 3 9:16AM ; [facility] Chronic pain syndrome PAIN MANAGEMENT FO LLOW UP with FERNANDO L MARYANA ANP-BC 10/06/2022 Last Documented On 3 8:58AM ; [facility] exterminator use of opiate analgesic PAIN M ANAGEMENT FOLLOW UP with FERNANDO L MARYANA ANP-BC 10/06/2022 Last Documented On 3 8:58AM ; [facility] 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 PAIN MANAGEMENT FOLLOW UP with FERNANDO L MARYANA ANP-BC 10/06/2022 Last Documented On 3 8:58AM ; [facility] Chronic pain syndrome PAIN MANAGEMENT FO LLOW UP with FERNANDO L MARYANA ANP-BC 07/07/2022 Last Documented On 3 9:22AM ; [facility] residential use of opiate analgesic PAIN M ANAGEMENT FOLLOW UP with FERNANDO L MARYANA ANP-BC 07/07/2022 Last Documented On 3 9:22AM ; [facility] 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 PAIN MANAGEMENT FOLLOW UP with FERNANDO L MARYANA ANP-BC 07/07/2022 Last Documented On 3 9:22AM ; [facility] Chronic pain syndrome PAIN MANAGEMENT FO LLOW UP with RHYS WELDON HEALTH CARE ANALYST-FPA, ELEVATOR MECHANIC APPRENTICE-BC 06/02/2022 Last Documented On 3 1:27PM ; [facility] residential use of opiate analgesic PAIN M ANAGEMENT FOLLOW UP with RHYS Tervino [facility] HEALTH CARE ANALYST-FPA, ELEVATOR MECHANIC APPRENTICE-BC 06/02/2022 Last Documented On 3 1:27PM ; [facility] 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 PAIN MANAGEMENT FOLLOW UP with RHYS Trevino [facility] HEALTH CARE ANALYST-FPA, ELEVATOR MECHANIC APPRENTICE-BC 06/02/2022 Last Documented On 3 1:27PM ; [facility] Chronic pain syndrome PAIN MANAGEMENT FO LLOW UP with FERNANDO L MARYANA ANP-BC 03/18/2022 Last Documented On 2 10:26AM ; [facility] exterminator use of opiate analgesic PAIN M ANAGEMENT FOLLOW UP with FERNANDO L MARYANA ANP-BC 03/18/2022 Last Documented On 2 10:26AM ; [facility] 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 PAIN MANAGEMENT FOLLOW UP with FERNANDO L MARYANA ANP-BC 03/18/2022 Last Documented On 2 10:26AM ; [facility] Chronic pain syndrome PAIN MANAGEMENT FO LLOW UP with FERNANDO L MARYANA ANP-BC 12/16/2021 Last Documented On 2 1:17PM ; [facility] residential use of opiate analgesic PAIN M ANAGEMENT FOLLOW UP with FERNANDO L MARYANA ANP-BC 12/16/2021 Last Documented On 2 1:17PM ; [facility] 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 PAIN MANAGEMENT FOLLOW UP with FERNANDO L MARYANA ANP-BC 12/16/2021 Last Documented On 2 1:17PM ; [facility] Chronic pain syndrome PAIN MANAGEMENT FO LLOW UP with FERNANDO L MARYANA ANP-BC 09/10/2021 Last Documented On 2 11:08AM ; [facility] exterminator use of opiate analgesic PAIN M ANAGEMENT FOLLOW UP with FERNANDO L MARYANA ANP-BC 09/10/2021 Last Documented On 2 11:08AM ; [facility] 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 PAIN MANAGEMENT FOLLOW UP with FERNANDO L MARYANA ANP-BC 09/10/2021 Last Documented On 2 11:08AM ; [facility] Chronic pain syndrome PAIN MANAGEMENT FO LLOW UP with FERNANDO L MARYANA ANP-BC 07/05/2021 Last Documented On 2 3:04PM ; [facility] residential use of opiate analgesic PAIN M ANAGEMENT FOLLOW UP with FERNANDO L MARYANA ANP-BC 07/05/2021 Last Documented On 2 3:04PM ; [facility] 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 PAIN MANAGEMENT FOLLOW UP with FERNANDO L MARYANA ANP-BC 07/05/2021 Last Documented On 2 3:04PM ; [facility] Chronic pain syndrome PAIN MANAGEMENT FO LLOW UP with FERNANDO L MARYANA ANP-BC 05/09/2021 Last Documented On 2 9:23AM ; [facility] residential use of opiate analgesic PAIN M ANAGEMENT FOLLOW UP with FERNANDO L MARYANA ANP-BC 05/09/2021 Last Documented On 2 9:23AM ; [facility] 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 PAIN MANAGEMENT FOLLOW UP with FERNANDO L MARYANA ANP-BC 05/09/2021 Last Documented On 2 9:23AM ; [facility] Chronic pain syndrome PAIN MANAGEMENT FO LLOW UP with FERNANDO L MARYANA ANP-BC 03/04/2021 Last Documented On 2 9:35AM ; [facility] exterminator use of opiate analgesic PAIN M ANAGEMENT FOLLOW UP with FERNANDO L MARYANA ANP-BC 03/04/2021 Last Documented On 2 9:35AM ; [facility] 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 PAIN MANAGEMENT FOLLOW UP with FERNANDO L MARYANA ANP-BC 03/04/2021 Last Documented On 2 9:35AM ; [facility] Chronic pain syndrome PAIN MANAGEMENT FO LLOW UP with FERNANDO L MARYANA ANP-BC 12/17/2020 Last Documented On 1 1:11PM ; [facility] residential use of opiate analgesic PAIN M ANAGEMENT FOLLOW UP with FERNANDO L MARYANA ANP-BC 12/17/2020 Last Documented On 1 1:11PM ; [facility] Lumbago PAIN MANAGEMENT FOLLOW UP with T LA L MARYANA ANP-BC 12/17/2020 Last Documented On 1 1:11PM ; [facility] 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 PAIN MANAGEMENT FOLLOW UP with FERNANDO L MARYANA ANP- 12/17/2020 Last Documented On 1 1:11PM ; [facility] Chronic pain syndrome PAIN MANAGEMENT FO LLOW UP with FERNANDO L MARYANA ANP- 10/09/2020 Last Documented On 1 4:30PM ; [facility] exterminator use of opiate analgesic PAIN M ANAGEMENT FOLLOW UP with FERNANDO L MARYANA [facility]- 10/09/2020 Last Documented On 1 4:30PM ; [facility] Lumbago PAIN MANAGEMENT FOLLOW UP with T LA L MARYANA ANP- 10/09/2020 Last Documented On 1 4:30PM ; [facility] 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 PAIN MANAGEMENT FOLLOW UP with FERNANDO L MARYANA ANP- 10/09/2020 Last Documented On 1 4:30PM ; [facility] Chronic pain syndrome FOLLOW UP with FERNANDO L BL EVINS ANP- 07/23/2020 Last Documented On 1 12:26PM ; [facility] exterminator use of opiate analgesic FOLLOW UP with FERNANDO L MARYANA ANP- 07/23/2020 Last Documented On 1 12:26PM ; [facility] Lumbago FOLLOW UP with FERNANDO L MARYANA ANP-BC 07/23/2020 Last Documented On 1 12:26PM ; [facility] 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 FOLLOW UP with FERNANDO L MARYANA ANP-BC 07/23/2020 Last Documented On 1 12:26PM ; [facility] Chronic pain syndrome PAIN MANAGEMENT FO LLOW UP with FERNANDO Ayanna MARYANA [facility] 04/13/2020 Last Documented On 0 3:05PM ; [facility] exterminator use of opiate analgesic PAIN M ANAGEMENT FOLLOW UP with FERNANDO HARVEYVINS [facility] 04/13/2020 Last Documented On 0 3:05PM ; [facility] Lumbago PAIN MANAGEMENT FOLLOW UP with T LA Urena MARYANA [facility] 04/13/2020 Last Documented On 0 3:05PM ; [facility] 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 PAIN MANAGEMENT FOLLOW UP with FERNANDO L MARYANA [facility] 04/13/2020 Last Documented On 0 3:05PM ; [facility] Chronic pain syndrome PAIN MANAGEMENT NE W CONSULT with FERNANDO HARVEYVINS [facility] 03/12/2020 Last Documented On 0 2:57PM ; [facility] exterminator use of opiate analgesic PAIN M ANAGEMENT NEW CONSULT with FERNANDO Ayanna MARYANA [facility] 03/12/2020 Last Documented On 0 2:57PM ; [facility] Lumbago PAIN MANAGEMENT NEW CONSULT with FERNANDOBOB HARVEYVINS [facility] 03/12/2020 Last Documented On 0 2:57PM ; [facility] 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 PAIN MANAGEMENT NEW CONSULT with FERNANDOBOB HARVEYVINS [facility] 03/12/2020 Last Documented On 0 2:57PM ; [facility] Instructions Includes: Instructions for all patient encounters Education and Decision Aids were provided during visit for: Pill Count: ten TYLENOL #4 Last Documented On 4 8:51AM ; [facility] Pill Count: 26 TYLENOL #4 Last Documented On 4 8:35AM ; [facility] Pill Count: 0 TYLENOL #4 Last Documented On 4 8:55AM ; [facility] Pill Count: 94 TYLENOL #4 Last Documented On 3 8:52AM ; [facility] Pill Count: 102 TYLENOL #4 Last Documented On 3 8:48AM ; [facility] Pill Count: 30 TYLENOL #4 Last Documented On 3 8:35AM ; [facility] Pill Count: six TYLENOL #4 Last Documented On 3 8:55AM ; [facility] Pill Count: 16 HYDROCODONE Last Documented On 3 8:55AM ; [facility] Pill Count: 55 TYLENOL #4 Last Documented On 3 9:06AM ; [facility] Pill Count: 68 TYLENOL #4 Last Documented On 2 9:37AM ; [facility] Pill Count: 40 TYLENOL #4 Last Documented On 2 9:56AM ; [facility] Pill Count: 33 TYLENOL #4 Last Documented On 2 10:49AM ; [facility] Pill Count: 26 TYLENOL #4 Last Documented On 2 8:47AM ; [facility] Pill Count: eight 7TYLENOL # 4 Last Documented On 2 9:23AM ; [facility] Pill Count: 41 TYLENOL 4 Last Documented On 1 8:51AM ; [facility] Pill Count: seven 7YLENOL #3 Last Documented On 1 2:03PM ; [facility] Pill Count: 70 Appropriate Last Documented On 1 1:11PM ; [facility] Pill Count: Patient did not bring pain medication to appointment for pill count, per policy. Advised in order to continue to safely prescribe opioids, medication must be brought to each appointment Last Documented On 1 3:46PM ; [facility] Pill Count: Patient does not have pills today but just got them filled 10/03/20 Last Documented On 1 3:46PM ; [facility] Pill Count: 40 Last Documented On 1 10:13AM ; [facility] Medical Equipment - Implanted Devices Includes: Current and historical Devices No Medical Equipment Recorded Medications Includes: Current and historical Medications Current Medications (continue as prescribed) Acetaminophen-Codeine 300-60 MG Oral Tablet 10/14/2023 Provider: RHYS WELDON HEALTH CARE ANALYST-FPA, ELEVATOR MECHANIC APPRENTICE-BC Diagnosis: Multiple scleros is 1 every 6 hours as needed, max 4/day Last Documented On 4 10:25AM By RHYS BACH ; [facility] Baclofen 10 MG Oral Tablet 08/31/2023 Provider: Manav BERMUDEZ Diagnosis: TAKE 1 TABLET BY MOUTH EVERY 6 HOURS NEEDED Last Documented On 4 8:18AM By FERNANDO BROWN ; [facility] valACYclovir HCl 500 MG Oral Tablet 08/28/2023 Provi azucena: Diagnosis: Last Documented On 09/09/2023 8:33AM By Destiny SEGOVIA ; [facility] Levothyroxine Sodium 150 MCG Oral Tablet 05/18/2023 Provider: CALDERON GODOY PA-C Diagnosis: Last Documented On 06/16/2023 8:54AM By Destiny SEGOVIA ; [facility] Oyster Shell Calcium 500 MG Oral Tablet 01/02/2023 P rovider: CALDERON GODOY PA-C Diagnosis: Last Documented On 01/21/2023 8:49AM By Destiny SEGOVIA ; [facility] Naproxen Sodium ER 500 MG Oral Tablet Extended R elease 24 Hour 03/12/2020 Provider: Diagnosis: Last Documented On 3 1:26PM By RHYS HOLM ; [facility] Ocrevus 300 MG/10ML Intravenous Solution 03/12/2020 Provider: Diagnosis: Last Documented On 3 1:26PM By RHYS HOLM ; [facility] Past Medications on file Acetaminophen-Codeine 300-60 MG Oral Tablet 09/09/2023 - 10/14/2023 Provider: FERNANDO BROWN Diagnosis: Multiple scleros is 1 every 6 hours as needed, max 4/daystart 09/15 Last Documented On 4 10:24AM By RHYS HOLM ; [facility] Acetaminophen-Codeine 300-60 MG Oral Tablet 08/13/2023 - 09/09/2023 Provider: FERNANDO BERMUDEZ Diagnosis: Multiple scleros is 1 every 6 hours as needed, max 4/daystart 08/16 Last Documented On 4 8:53AM By FERNANDO BROWN ; [facility] Baclofen 10 MG Oral Tablet 07/27/2023 - 09/09/2023 Provider: FERNANDO BROWN Diagnosis: Multiple scleros is TAKE 1 TABLET BY MOUTH EVERY 6 HOURS NEEDED Last Documented On 09/09/2023 8:33AM By Destiny SEGOVIA ; [facility] Acetaminophen-Codeine 300-60 MG Oral Tablet 07/14/2023 - 08/13/2023 Provider: FERNANDO BROWN Diagnosis: Multiple scleros is 1 every 6 hours as needed, max 4/day Last Documented On 4 10:43AM By FERNANDO BROWN ; [facility] Acetaminophen-Codeine 300-60 MG Oral Tablet 06/16/2023 - 07/14/2023 Provider: FERNANDO BROWN Diagnosis: Multiple scleros is 1 every 6 hours as needed, max 4/daystart 05/17 Last Documented On 4 12:24PM By FERNANDO BROWN ; [facility] Acetaminophen-Codeine 300-60 MG Oral Tablet 05/12/2023 - 06/16/2023 Provider: FERNANDO BROWN Diagnosis: Multiple scleros is 1 every 6 hours as needed, max 4/daystart 05/17 Last Documented On 4 9:10AM By FERNANDO BROWN ; [facility] Acetaminophen-Codeine 300-60 MG Oral Tablet 04/14/2023 - 05/12/2023 Provider: FERNANDO BROWN Diagnosis: Multiple scleros is 1 every 6 hours as needed, max 4/day Last Documented On 4 2:28PM By FERNANDO BROWN ; [facility] Baclofen 10 MG Oral Tablet 03/25/2023 - 07/27/2023 Provider: FERNANDO BROWN Diagnosis: Multiple scleros is TAKE 1 TABLET BY MOUTH EVERY 6 HOURS NEEDED Last Documented On 4 5:18PM By FERNANDO BROWN ; [facility] Acetaminophen-Codeine 300-60 MG Oral Tablet 03/17/2023 - 04/14/2023 Provider: FERNANDO BERMUDEZ Diagnosis: Multiple scleros is 1 every 6 hours as needed, max 4/day Last Documented On 3 3:53PM By FERNANDO BERMUDEZ ; [facility] Acetaminophen-Codeine 300-60 MG Oral Tablet 02/11/2023 - 03/16/2023 Provider: FERNANDO BERMUDEZ Diagnosis: Multiple scleros is 1 every 6 hours as needed, max 4/day Last Documented On 3 9:24AM By FERNANDO BROWN ; [facility] Acetaminophen-Codeine 300-60 MG Oral Tablet 01/15/2023 - 02/11/2023 Provider: FERNANDO BERMUDEZ Diagnosis: Multiple scleros is 1 every 6 hours as needed, max 4/day Last Documented On 3 10:54AM By FERNANDO BERMUDEZ ; [facility] valACYclovir HCl 500 MG Oral Tablet 01/08/2023 - 09/08 Provider: Diagnosis: Last Documented On 09/09/2023 8:34AM By Destiny SEGOVIA ; [facility] Acetaminophen-Codeine 300-60 MG Oral Tablet 12/16/2022 - 01/15/2023 Provider: FERNANDO BERMUDEZ Diagnosis: Multiple scleros is 1 every 6 hours as needed, max 4/day Last Documented On 3 2:21PM By FERNANDO BERMUDEZ ; [facility] Baclofen 10 MG Oral Tablet 12/02/2022 - 03/25/2023 Provider: FERNANDO BERMUDEZ Diagnosis: Multiple scleros is TAKE 1 TABLET BY MOUTH EVERY 6 HOURS NEEDED Last Documented On 3 9:00AM By FERNANDO BERMUDEZ ; [facility] Acetaminophen-Codeine 300-60 MG Oral Tablet 11/06/2022 - 12/16/2022 Provider: FERNANDO BERMUDEZ Diagnosis: Multiple scleros is 1 every 6 hours as needed, max 4/day Last Documented On 3 2:36PM By FERNANDO BERMUDEZ ; [facility] Acetaminophen-Codeine 300-60 MG Oral Tablet 10/06/2022 - 11/06/2022 Provider: FERNANDO BERMUDEZ Diagnosis: Multiple scleros is 1 every 6 hours as needed, max 4/day Last Documented On 3 2:13PM By FERNANDO BROWN ; [facility] Acetaminophen-Codeine 300-60 MG Oral Tablet 09/11/2022 - 10/06/2022 Provider: FERNANDO BROWN Diagnosis: Multiple scleros is 1 every 6 hours as needed, max 4/day Last Documented On 3 8:57AM By FERNANDO BROWN ; [facility] Baclofen 10 MG Oral Tablet 09/08/2022 - 12/02/2022 Provider: FERNANDO BROWN Diagnosis: Multiple scleros is TAKE 1 TABLET BY MOUTH EVERY 6 HOURS NEEDED Last Documented On 3 2:17PM By FERNANDO BROWN ; [facility] Acetaminophen-Codeine 300-60 MG Oral Tablet 08/11/2022 - 09/10/2022 Provider: FERNANDO BROWN Diagnosis: Multiple scleros is 1 every 6 hours as needed, max 4/day Last Documented On 3 8:35AM By FERNANDO BROWN ; [facility] Acetaminophen-Codeine 300-60 MG Oral Tablet 07/07/2022 - 08/11/2022 Provider: FERNANDO BERMUDEZ Diagnosis: Multiple scleros is 1 every 6 hours as needed, max 4/day Last Documented On 3 9:06AM By FERNANDO BROWN ; [facility] HYDROcodone-Acetaminophen 5- 325 MG Oral Tablet 06/18/2022 - 07/07/2022 Provider: RHYS WELDON HEALTH CARE ANALYST-FPA, ELEVATOR MECHANIC APPRENTICE-BC Diagnosis: One tablet every 6-8 hours for severe pain, max 3/day Last Documented On 3 9:18AM By FERNANDO BERMUDEZ ; [facility] Acetaminophen-Codeine 300-60 MG Oral Tablet 06/18/2022 - 07/07/2022 Provider: RHYS TEMPLE [facility] Diagnosis: Multiple scleros is 1 every 6 hours as needed, max 4/day Last Documented On 3 9:22AM [facility] ; [facility] Baclofen 10 MG Oral Tablet 06/02/2022 - 09/08/2022 Provider: RHYS TEMPLE [facility] Diagnosis: Multiple scleros is TAKE 1 TABLET BY MOUTH EVERY 6 HOURS NEEDED Last Documented On 3 1:11PM By [facility] ; [facility] Acetaminophen-Codeine 300-60 MG Oral Tablet 05/16/2022 - 06/18/2022 Provider: RHYS TEMPLE [facility] Diagnosis: Multiple scleros is 1 every 6 hours as needed Last Documented On 3 9:25AM By [facility] ; [facility] Acetaminophen-Codeine 300-60 MG Oral Tablet 04/07/2022 - 05/16/2022 Provider: FERNANDO BROWN Diagnosis: Multiple scleros is 1 every 6 hours as needed Last Documented On 3 4:24PM By RHYS WELDON [facility] ; [facility] Acetaminophen-Codeine 300-60 MG Oral Tablet 03/04/2022 - 04/04/2022 Provider: FERNANDO BERMUDEZ Diagnosis: Multiple scleros is 1 po QID prn Last Documented On 2 9:23AM [facility] ; [facility] Baclofen 10 MG Oral Tablet 03/04/2022 - 06/02/2022 Provider: FERNANDO BERMUDEZ Diagnosis: Multiple scleros is TAKE 1 TABLET BY MOUTH EVERY 6 HOURS NEEDED Last Documented On 3 1:26PM By [facility] ; [facility] Acetaminophen-Codeine 300-60 MG Oral Tablet 01/29/2022 - 03/03/2022 Provider: FERNANDO RHODESCARMELLA Diagnosis: Multiple scleros is 1 po QID prn Last Documented On 2 8:21AM By FERNANDO BROWN ; [facility] Baclofen 10 MG Oral Tablet 01/29/2022 - 03/04/2022 Provider: FERNANDO BERMUDEZ Diagnosis: Multiple scleros is TAKE 1 TABLET BY MOUTH EVERY 6 HOURS NEEDED Last Documented On 2 2:33PM By FERNANDO BROWN ; [facility] Acetaminophen-Codeine 300-60 MG Oral Tablet 12/16/2021 - 01/29/2022 Provider: FERNANDO BERMUDEZ Diagnosis: Multiple scleros is 1 po QID prn Last Documented On 2 1:58PM By FERNANDO BERMUDEZ ; [facility] Acetaminophen-Codeine 300-60 MG Oral Tablet 11/21/2021 - 12/16/2021 Provider: FERNANDO BERMUDEZ Diagnosis: Multiple scleros is 1 po QID prn Last Documented On 2 10:20AM By FERNANDO BROWN ; [facility] Acetaminophen-Codeine 300-60 MG Oral Tablet 10/18/2021 - 11/21/2021 Provider: FERNANDO BERMUDEZ Diagnosis: Multiple scleros is 1 po QID prn Last Documented On 2 2:51PM By FERNANDO BERMUDEZ ; [facility] Acetaminophen-Codeine 300-60 MG Oral Tablet 09/16/2021 - 10/17/2021 Provider: FERNANDO BERMUDEZ Diagnosis: Multiple scleros is 1 po QID prn Last Documented On 2 11:04AM By FERNANDO BERMUDEZ ; [facility] Acetaminophen-Codeine 300-60 MG Oral Tablet 08/19/2021 - 09/16/2021 Provider: FERNANDO BERMUDEZ Diagnosis: Multiple scleros is 1 po QID prn Last Documented On 2 3:39PM By FERNANDO BERMUDEZ ; [facility] Baclofen 10 MG Oral Tablet 07/29/2021 - 01/29/2022 Provider: FERNANDO BERMUDEZ Diagnosis: Multiple scleros is TAKE 1 TABLET BY MOUTH EVERY 6 HOURS NEEDED Last Documented On 2 8:58AM By FERNANDO BERMUDEZ ; [facility] Acetaminophen-Codeine 300-60 MG Oral Tablet 07/05/2021 - 08/19/2021 Provider: FERNANDO BERMUDEZ Diagnosis: Multiple scleros is 1 po QID prn Last Documented On 2 4:38PM By FERNANDO BERMUDEZ ; [facility] Baclofen 10 MG Oral Tablet 06/27/2021 - 07/29/2021 Provider: FERNANDO BERMUDEZ Diagnosis: Multiple scleros is TAKE 1 TABLET BY MOUTH EVERY 6 HOURS NEEDED Last Documented On 2 11:37AM By FERNANDO BERMUDEZ ; [facility] Acetaminophen-Codeine 300-60 MG Oral Tablet 06/11/2021 - 07/05/2021 Provider: FERNANDO BERMUDEZ Diagnosis: Chronic pain syndrome 1 po QID prn Last Documented On 2 9:09AM By FERNANDO BERMUDEZ ; [facility] Acetaminophen-Codeine 300-60 MG Oral Tablet 05/09/2021 - 06/11/2021 Provider: FERNANDO BERMUDEZ Diagnosis: Chronic pain syndrome 1 po QID prn Last Documented On 2 2:44PM By FERNANDO BERMUDEZ ; [facility] Acetaminophen-Codeine 300-60 MG Oral Tablet 04/09/2021 - 05/09/2021 Provider: FERNANDO BERMUDEZ Diagnosis: 1 po QID prn Last Documented On 2 9:22AM By FERNANDO BERMUDEZ ; [facility] Baclofen 10 MG Oral Tablet 03/05/2021 - 06/27/2021 Provider: FERNANDO BERMUDEZ Diagnosis: Multiple scleros is TAKE 1 TABLET BY MOUTH EVERY 6 HOURS NEEDED Last Documented On 2 6:47PM By FERNANDO BERMUDEZ ; [facility] Acetaminophen-Codeine 300-60 MG Oral Tablet 03/04/2021 - 04/08/2021 Provider: FERNANDO BERMUDEZ Diagnosis: Chronic pain syndrome 1 po QID prn Last Documented On 1 11:30AM By FERNANDO BROWN ; [facility] Acetaminophen-Codeine 300-60 MG Oral Tablet 02/04/2021 - 03/04/2021 Provider: FERNANDO BERMUDEZ Diagnosis: 1 po QID prn Last Documented On 1 2:38PM By FERNANDO BERMUDEZ ; [facility] Acetaminophen-Codeine 300-60 MG Oral Tablet 01/04/2021 - 02/04/2021 Provider: FERNANDO BERMUDEZ Diagnosis: Chronic pain syndrome 1 po QID prn Last Documented On 1 2:25PM By FERNANDO BERMUDEZ ; [facility] Baclofen 10 MG Oral Tablet 12/10/2020 - 03/05/2021 Provider: FERNANDO BERMUDEZ Diagnosis: Multiple scleros is TAKE 1 TABLET BY MOUTH EVERY 6 HOURS NEEDED Last Documented On 1 5:21PM By FERNANDO BERMUDEZ ; [facility] Acetaminophen-Codeine 300-60 MG Oral Tablet 12/04/2020 - 01/04/2021 Provider: FERNANDO BERMUDEZ Diagnosis: 1 po QID prn Last Documented On 1 1:00PM By FERNANDO BERMUDEZ ; [facility] Acetaminophen-Codeine 300-60 MG Oral Tablet 10/31/2020 - 12/03/2020 Provider: FERNANDO BERMUDEZ Diagnosis: 1 po QID prn Last Documented On 1 2:52PM By FERNANDO BERMUDEZ ; [facility] Acetaminophen-Codeine 300-60 MG Oral Tablet 10/03/2020 - 10/31/2020 Provider: FERNANDO BERMUDEZ Diagnosis: Multiple scleros is 1 po QID prn Last Documented On 1 3:15PM By FERNANDO BROWN ; [facility] Acetaminophen-Codeine 300-60 MG Oral Tablet 08/30/2020 - 10/03/2020 Provider: FERNANDO BROWN Diagnosis: Multiple scleros is 1 po QID prnto fill 09/01 Last Documented On 1 4:35PM By FERNANDO BROWN ; [facility] Baclofen 10 MG Oral Tablet 08/02/2020 - 12/10/2020 Provider: FERNANDO BROWN Diagnosis: Multiple scleros is TAKE 1 TABLET BY MOUTH EVERY 6 HOURS NEEDED Last Documented On 1 10:17AM By FERNANDO BROWN ; [facility] Acetaminophen-Codeine 300-60 MG Oral Tablet 08/02/2020 - 08/30/2020 Provider: FERNANDO BERMUDEZ Diagnosis: Multiple scleros is 1 po QID prn Last Documented On 1 2:46PM By FERNANDO BROWN ; [facility] Acetaminophen-Codeine 300-60 MG Oral Tablet 07/02/2020 - 08/01/2020 Provider: FERNANDO BROWN Diagnosis: Multiple scleros is 1 po QID prn Last Documented On 1 8:15AM By FERNANDO BROWN ; [facility] Baclofen 10 MG Oral Tablet 05/21/2020 - 08/01/2020 Provider: FERNANDO BROWN Diagnosis: Multiple scleros is TAKE 1 TABLET BY MOUTH EVERY 6 HOURS NEEDED Last Documented On 1 8:15AM By FERNANDO BROWN ; [facility] Acetaminophen-Codeine 300-60 MG Oral Tablet 05/15/2020 - 2020 Provider: FERNANDO BERMUDEZ Diagnosis: Multiple scleros is 1 po QID prn Last Documented On 1 12:05PM By FERNANDO BROWN ; [facility] Baclofen 10 MG Oral Tablet 04/19/2020 - 05/21/2020 Provider: FERNANDO BERMUDEZ Diagnosis: Multiple scleros is TAKE 1 TABLET BY MOUTH EVERY 6 HOURS NEEDED Last Documented On 1 9:20AM By FERNANDO BERMUDEZ ; [facility] HYDROcodone-Acetaminophen 10-325 MG Oral Tablet 03/12/2020 - 03/12/2020 Provider: Diagnosis: Last Documented On 0 10:52AM By Jennyfer Juarez Melodie ; [facility] LORazepam 2 MG Oral Tablet 03/12/2020 - 03/12/2020 Pro vider: Diagnosis: Last Documented On 0 11:39AM By FERNANDO BERMUDEZ ; [facility] Mirtazapine 7.5 MG Oral Tablet 03/12/2020 - 09/10/2021 Provider: Diagnosis: Last Documented On 2 10:49AM By Destiny Lopes Melodie ; [facility] Baclofen 10 MG Oral Tablet 03/12/2020 - 04/19/2020 Provider: FERNANDO BERMUDEZ Diagnosis: Multiple scleros is 1 every 6 hours as needed Last Documented On 0 10:30AM By FERNANDO BERMUDEZ ; [facility] Baclofen 10 MG Oral Tablet 03/12/2020 - 03/12/2020 Pro vider: Diagnosis: Last Documented On 0 2:57PM By FERNANDO BERMUDEZ ; [facility] SUMAtriptan Succinate 100 MG Oral Tablet 03/12/2020 - 06/02/2022 Provider: Diagnosis: Last Documented On 3 9:06AM By Marjan SEGOVIA ; [facility] Acetaminophen-Codeine 300-60 MG Oral Tablet 03/12/2020 - 05/15/2020 Provider: Diagnosis: Last Documented On 1 5:11PM By FERNANDO BERMUDEZ ; [facility] Medications Administered Includes: Administered Medications in patient's chart No Administered Medications Recorded Vital Signs Includes: Vital Signs from 07/01/2023 through 06/30/2024 Vital Name 10/14/2023 08:53A 09/09/2023 08: 30A Temp-Temporal 97.2 96 Height (in) 55 55 Weight (lb) 168 167 Body Mass Index 39 38.8 Body Surface Area 1.6 1.6 Blood Pressure Sitting R 150/94 Pulse Rate-Sitting (bpm) 102 Pain Level 6 Oxygen Saturation (%) 98 Note: IS NOT ON B/P ME DS, NO SX Last Documented: On 10/14/2023 8:53AM ; [facility] On 09/09/2023 8:33AM ; [facility] Results Includes: Results from 07/01/2023 through 06/30/2024 DRUG MONITORING, PANEL 6 WITH CONFIRMATI ON, URINE [employer] Ordered by RHYS WELDON APRN-FPMelodie, ELEVATOR MECHANIC APPRENTICE- BC on 10/14/2023 Collected: 10/14/2023 Reported: 10/26/19 24 16:49 Last Documented On 4 1:23PM ; [facility] Reviewed by FERNANDO ESCALANTE ANP-BC on 11/17/2023; All test results are final unless otherwise noted. Amphetamines NEGATIVE ng/mL (<500) None Last Documented On 4 5:11PM ; [facility] Barbiturates NEGATIVE ng/mL (<300) None Last Documented On 4 5:11PM ; [facility] Benzodiazepines NEGATIVE ng/mL (<100) None Last Documented On 4 5:11PM ; [facility] Marijuana Metabolite POSITIVE ng/mL (<20) A (Abnormal) Last Documented On 4 5:11PM ; [facility] Marijuana Metabolite 502 ng/mL (<5) H (High) Last Documented On 4 5:11PM ; [facility] medMATCH Marijuana Metab INCONSISTENT A (Abnormal) Last Documented On 4 5:11PM ; [facility] Cocaine Metabolite NEGATIVE ng/mL (<150) None Last Documented On 4 5:11PM ; [facility] Methadone Metabolite NEGATIVE ng/mL (<100) None Last Documented On 4 5:11PM ; [facility] Opiates POSITIVE ng/mL (<100) A (Abnormal) Last Documented On 4 5:11PM ; [facility] Codeine >23802 ng/mL (<50) H (High) Last Documented On 4 5:11PM ; [facility] medMATCH Codeine CONSISTENT None Last Documented On 4 5:11PM ; [facility] Morphine 2826 ng/mL (<50) H (High) Last Documented On 4 5:11PM ; [facility] medMATCH Morphine CONSISTENT None Last Documented On 4 5:11PM ; [facility] Hydrocodone NEGATIVE ng/mL (<50) None Last Documented On 4 5:11PM ; [facility] Hydromorphone NEGATIVE ng/mL (<50) None Last Documented On 4 5:11PM ; [facility] Oxycodone NEGATIVE ng/mL (<100) None Last Documented On 4 5:11PM ; [facility] Phencyclidine NEGATIVE ng/mL (<25) None Last Documented On 4 5:11PM ; [facility] Alcohol Metabolites NEGATIVE ng/mL (<500) None Last Documented On 4 5:11PM ; [facility] 6 Acetylmorphine NEGATIVE ng/mL (<10) None Last Documented On 4 5:11PM ; [facility] pH 6.0 (4.5-9.0) None Last Documented On 4 5:11PM ; [facility] Creatinine 53.3 mg/dL (> or = 20.0) None Last Documented On 4 5:11PM ; [facility] Oxidant NEGATIVE mcg/mL (<200) None Last Documented On 4 5:11PM ; [facility] Norhydrocodone 61 ng/mL (<50) H (High) Last Documented On 4 5:11PM ; [facility] medMATCH Norhydrocodone INCONSISTENT A (Abnormal) Last Documented On 4 5:11PM ; [facility] Marijuana Comments See Note None Last Documented On 10/26/2023 5:11PM ; [facility] Note: See Marijuana Notes, LDT Notes Opiates Comments See Note None Last Documented On 10/26/2023 5:11PM ; [facility] Note: See Opiates Notes, LDT Notes DRUG MONITORING TEMPLATE [employer] Ordered by MIKALA BERGER on 10/14/2023 Collected: 10/14/2023 Reported: 10/26/19 24 16:49 Last Documented On 4 1:23PM ; [facility] Reviewed by FERNANDO ESCALANTE [facility] on 11/17/2023; All test results are final unless otherwise noted. Notes and Comments See Note None Last Documented On 10/26/2023 5:11PM ; [facility] Note: This drug testing is for medical treatment only.Analysis was performed as non-forensic testing andthese results should be used only by healthcareproviders to render diagnosis or treatment, or tomonitor progress of medical conditions. Marijuana Notes:Marijuana Metabolite detected is consistent with exposure to Marijuana (THC) and/or hemp derived products. Some jurisdictions do not include hemp within the definition of Marijuana. Opiates Notes:Codeine, Morphine detected is consistent with the use of the drug Codeine. Morphine is a metabolite of Codeine. Low concentrations of Morphine have been observed following ingestion of products containing poppy seeds. Morphine detected is consistent with the use of the drug Morphine. Morphine can be a prescribed drug and is also a metabolite of Codeine and Heroin. Low concentrations of Morphine have been observed following ingestion of products containing poppy seeds. Norhydrocodone detected is consistent with the use of the drug Hydrocodone. The metabolite Hydromorphone is not present at or above the cutoff. LDT Notes:Confirmation tests were developed and their analytical performance characteristics have been determined by [employer]. It has not been cleared or approved by the FDA. This assay has been validated pursuant to the CLIA regulations and is used for clinical purposes. medMATCH(R) enables providers to identify if drug useis consistent or inconsistent with a correspondingprescribed medication(s) list. Healthcare Providers needing Interpretation assistance, please contact us at [phone] ( ) M-F, 8am to 10pm EST PRESCRIBED DRUGS, medMATCH(R) [employer] Ordered by MIKALA BERGER on 10/14/2023 Collected: 10/14/2023 Reported: 10/26/19 16:49 Last Documented On 4 1:23PM ; [facility] Reviewed by FERNANDO BERMUDEZ on 11/17/2023; All test results are final unless otherwise noted. medMATCH Summary See Note None Last Documented On 10/26/2023 5:11PM ; [facility] Note: Prescribed Prescribed Not Prescribed Consistent Inconsistent Inconsistent Codeine Marijuana Metabolite Norhydrocodone Prescribed Drug 1 Codeine None Last Documented On 5:11PM ; [facility] Reported Physicians [facility] Ordered by RHYS [facility] on 10/14/2023 Collected: 10/14/2023 Reported: 10/26/19 17:52 Last Documented On 4 1:23PM ; [facility] Reviewed by FERNANDO BERMUDEZ on 11/17/2023; All test results are final unless otherwise noted. Reported Physicians See Note None Last Documented On 10/26/2023 5:11PM ; [facility] Note: Reported Physicians:Ordering: Rhys Weldon DRUG MONITORING, PANEL 6 WITH CONFIRMATI ON, URINE [facility] Ordered by FERNANDO BERMUDEZ on Collected: 09/09/2023 Reported: 09/11/19 18:58 Last Documented On 4 10:32AM ; [facility] Reviewed on 09/14/2023; All test results are final unless otherwise noted. Review Note Provider Name Date Pt placed on scheduled for for Random UDS and pill count 09/14/2023 Amphetamines NEGATIVE ng/mL (<500) None Last Documented On 4 7:23PM ; [facility] Barbiturates NEGATIVE ng/mL (<300) None Last Documented On 4 7:23PM ; [facility] Benzodiazepines NEGATIVE ng/mL (<100) None Last Documented On 4 7:23PM ; [facility] Marijuana Metabolite POSITIVE ng/mL (<20) A (Abnormal) Last Documented On 4 7:23PM ; [facility] Marijuana Metabolite 268 ng/mL (<5) H (High) Last Documented On 4 7:23PM ; [facility] medMATCH Marijuana Metab INCONSISTENT A (Abnormal) Last Documented On 4 7:23PM ; [facility] Cocaine Metabolite NEGATIVE ng/mL (<150) None Last Documented On 4 7:23PM ; [facility] Methadone Metabolite NEGATIVE ng/mL (<100) None Last Documented On 4 7:23PM ; [facility] Opiates POSITIVE ng/mL (<100) A (Abnormal) Last Documented On 4 7:23PM ; [facility] Codeine >77858 ng/mL (<50) H (High) Last Documented On 4 7:23PM ; [facility] medMATCH Codeine CONSISTENT None Last Documented On 4 7:23PM ; [facility] Morphine 2068 ng/mL (<50) H (High) Last Documented On 4 7:23PM ; [facility] medMATCH Morphine CONSISTENT None Last Documented On 4 7:23PM ; [facility] Hydrocodone NEGATIVE ng/mL (<50) None Last Documented On 4 7:23PM ; [facility] Hydromorphone NEGATIVE ng/mL (<50) None Last Documented On 4 7:23PM ; [facility] Oxycodone NEGATIVE ng/mL (<100) None Last Documented On 4 7:23PM ; [facility] Phencyclidine NEGATIVE ng/mL (<25) None Last Documented On 4 7:23PM ; [facility] Alcohol Metabolites NEGATIVE ng/mL (<500) None Last Documented On 4 7:23PM ; [facility] 6 Acetylmorphine NEGATIVE ng/mL (<10) None Last Documented On 4 7:23PM ; [facility] pH 7.1 (4.5-9.0) None Last Documented On 4 7:23PM ; [facility] Creatinine 28.8 mg/dL (> or = 20.0) None Last Documented On 4 7:23PM ; [facility] Oxidant NEGATIVE mcg/mL (<200) None Last Documented On 7:23PM ; [facility] Norhydrocodone 54 ng/mL (<50) H (High) Last Documented On 7:23PM ; [facility] medMATCH Norhydrocodone INCONSISTENT A (Abnormal) Last Documented On 7:23PM ; [facility] Marijuana Comments See Note None Last Documented On 09/11/2023 7:23PM ; [facility] Note: See Marijuana Notes, LDT Notes Opiates Comments See Note None Last Documented On 09/11/2023 7:23PM ; [facility] Note: See Opiates Notes, LDT Notes DRUG MONITORING TEMPLATE [employer] Ordered by FERNANDO ESCALANTE [facility]- on Collected: 09/09/2023 Reported: 09/11/19 18:58 Last Documented On 10:32AM ; [facility] Reviewed on 09/14/2023; All test results are final unless otherwise noted. Review Note Provider Name Date Pt placed on scheduled for for Random UDS and pill count 09/14/2023 Notes and Comments See Note None Last Documented On 09/11/2023 7:23PM ; [facility] Note: This drug testing is for medical treatment only.Analysis was performed as non-forensic testing andthese results should be used only by healthcareproviders to render diagnosis or treatment, or tomonitor progress of medical conditions. Marijuana Notes:Marijuana Metabolite detected is consistent with exposure to Marijuana (THC) and/or hemp derived products. Some jurisdictions do not include hemp within the definition of Marijuana. Opiates Notes:Codeine, Morphine detected is consistent with the use of the drug Codeine. Morphine is a metabolite of Codeine. Low concentrations of Morphine have been observed following ingestion of products containing poppy seeds. Morphine detected is consistent with the use of the drug Morphine. Morphine can be a prescribed drug and is also a metabolite of Codeine and Heroin. Low concentrations of Morphine have been observed following ingestion of products containing poppy seeds. Norhydrocodone detected is consistent with the use of the drug Hydrocodone. The metabolite Hydromorphone is not present at or above the cutoff. LDT Notes:Confirmation tests were developed and their analytical performance characteristics have been determined by [employer]. It has not been cleared or approved by the FDA. This assay has been validated pursuant to the CLIA regulations and is used for clinical purposes. medMATCH(R) enables providers to identify if drug useis consistent or inconsistent with a correspondingprescribed medication(s) list. Healthcare Providers needing Interpretation assistance, please contact us at [phone] ( ) M-F, 8am to 10pm EST PRESCRIBED DRUGS, medMATCH(R) [employer] Ordered by FERNANDO BERMUDEZ on Collected: 09/09/2023 Reported: 09/11/19 18:58 Last Documented On 4 10:32AM ; [facility] Reviewed on 09/14/2023; All test results are final unless otherwise noted. Review Note Provider Name Date Pt placed on scheduled for for Random UDS and pill count 09/14/2023 Prescribed Drug 6 Codeine None Last Documented On 4 7:23PM ; [facility] medMATCH Summary See Note None Last Documented On 09/11/2023 7:23PM ; [facility] Note: Prescribed Prescribed Not Prescribed Consistent Inconsistent Inconsistent Codeine Marijuana Metabolite Norhydrocodone Reported Physicians [employer] In c. Ordered by FERNANDO RHODES-CARMELLA on Collected: 09/09/2023 Reported: 09/11/19 20:01 Last Documented On 4 10:32AM ; [facility] Reviewed on 09/14/2023; All test results are final unless otherwise noted. Review Note Provider Name Date Pt placed on scheduled for for Random UDS and pill count 09/14/2023 Reported Physicians See Note None Last Documented On 09/11/2023 7:23PM ; [facility] Note: Reported Physicians:Ordering: Fernando Escalante History of Present Illness History of Present Illness not supported for this document type No History of Present Illness Recorded Social History Description Last Updated Current smoker CANNIBIS 06/16/2023 Last Documented On 4 9:11AM ; [facility] Tobacco non-user 07/07/2022 Last Documented On 3 9:22AM ; [facility] Current nonsmoker 07/23/2020 Last Documented On 1 12:26PM ; [facility] No consumption of alcohol 03/12/2020 Last Documented On 0 2:57PM ; [facility] No tobacco use 03/12/2020 Last Documented On 0 2:57PM ; [facility] Using marijuana 03/12/2020 Last Documented On 0 2:57PM ; [facility] Non-smoker 03/12/2020 Last Documented On 0 2:57PM ; [facility] No menarche yet 03/12/2020 Last Documented On 0 2:57PM ; [facility] A high-salt diet not from processed food s 03/12/2020 Last Documented On 0 2:57PM ; [facility] A high-sugar diet not including sweet sn acks 03/12/2020 Last Documented On 0 2:57PM ; [facility] Diet does not need elimination of junk f ood 03/12/2020 Last Documented On 0 2:57PM ; [facility] Diet does not need reduction of caloric intake 03/12/2020 Last Documented On 0 2:57PM ; [facility] Diet provides sufficient food variety Last Documented On 0 2:57PM ; [facility] Diet provides sufficient fruit 0 Last Documented On 0 2:57PM ; [facility] Diet provides sufficient vegetables 02/25 Last Documented On 0 2:57PM ; [facility] No high-fat diet 03/12/2020 Last Documented On 0 2:57PM ; [facility] Smoking Status Unknown Procedures and Surgical History Includes: Procedures from 07/01/2023 through 06/30/2024 Procedures Code Diagnosis Performing Provider Service L ocation Service Date CLINIC VISIT T1015 Chronic pain syndrome, Multiple sclerosis, exterminator (current) use of opiate analgesic RHYS CHAVEZLP HEALTH CARE ANALYST-FPA, ELEVATOR MECHANIC APPRENTICE-BC [facility] 10/14/2023 Last Documented On 4 3:42PM ; [facility] CLINIC VISIT T1015 Multiple scleros is, Chronic pain syndrome, exterminator (current) use of opiate analgesic FERNANDO ESCALANTE ANP-BC [facility] 09/09/2023 Last Documented On 4 11:43AM ; [facility] Medical History Includes: Medical History in patient's chart Description Last Updated Denies a fear of falling. 09/09/2023 Last Documented On 4 9:15AM ; [facility] Has had no fall in the last 12 months. 0 09/09/2023 Last Documented On 4 9:15AM ; [facility] 1 miscarriage(s) 03/12/2020 Last Documented On 0 2:57PM ; [facility] Currently wearing eyeglasses 03/12/2020 Last Documented On 0 2:57PM ; [facility] Previously 2 time(s) 03/12/2020 Last Documented On 0 2:57PM ; [facility] Surgery , tonsilectomy, gallbla dder, apendix, left ovary removal 03/12/2020 Last Documented On 0 2:57PM ; [facility] reviewed and unchanged since last visit 03/12/2020 Last Documented On 0 2:57PM ; [facility] Current toilet training has been complet ed 03/12/2020 Last Documented On 0 2:57PM ; [facility] No previous psychiatric treatment 2019 Last Documented On 0 2:57PM ; [facility] Reported dietary history 03/12/2020 Last Documented On 0 2:57PM ; [facility] Taking medication 03/12/2020 Last Documented On 0 2:57PM ; [facility] Taking vitamin supplements 03/12/2020 Last Documented On 0 2:57PM ; [facility] Family History Includes: Family History in patient's chart Description Last Updated Family history reviewed - unchanged sin e last visit 03/12/2020 Last Documented On 0 2:57PM ; [facility] Family history unchanged 03/12/2020 Last Documented On 0 2:57PM ; [facility] Review of Systems Review of Systems not supported for this document type No Review of Systems Recorded Mental Status No Mental Status Recorded Functional Status No Functional Status Recorded Physical Exam Physical Exam not supported for this document type No Physical Exam Recorded Allergies Includes: Active, inactive, and resolved Allergies Substance Type Reaction Onset Date Resolved Date Statu s traMADol HCl Allergy 10/09/2020 Active Last Documented On 4 8:34AM ; [facility] Encounters Includes: Encounters from 07/01/2023 through 06/30/2024 Encounter Provider Location Date Check-In Time Check-Out Time Diagnosis RX ISSUE/REFILL RHYS Trevion [facility] 10/14/19 24 06/16/2023 9:33AM 11:59PM URINE RECHECK RHYS G [facility] 10/14/19 24 06/16/2023 9:15AM 8:56AM Chronic Pain Syndrome,Mult iple Sclerosis Brain Stem,Transportation Refrigeration Technician Use of Opiate Analgesic PAIN MANAGEMENT FOLLOW UP FERNANDO ESCALANTE [facility] 09/09/19 24 06/16/2023 8:30AM 9:20AM Chronic Pain Syndrome,Mult iple Sclerosis Brain Stem,Transportation Refrigeration Technician Use of Opiate Analgesic RX ISSUE/REFILL FERNANDO ESCALANTE [facility] 08/13/19 24 06/16/2023 8:57AM 06/16/2023 11:59PM RX ISSUE/REFILL FERNANDO ESCALANTE [facility] 08/05/19 24 06/16/2023 4:22PM 06/16/2023 11:59PM RX ISSUE/REFILL FERNANDO L MARYANA ANP-BC 07/14/19 24 06/16/2023 9:58AM 06/16/2023 11:59PM Insurance Includes: Active Insurance Policies Plan Name Member ID Group # Subscriber Relationship Effect nba Dates 1 - [facility] [id number] DAPHNE NICOLE Self Clinical Notes Includes: Signed Clinical Notes starting from 05/16/2022 * Progress note Date Encounter Last Documented by 10/14/2023 RX ISSUE/REFILL Last documented on 10/14/2023; 10:24 AM, RHYS WELDON HEALTH CARE ANALYST-FPA, ELEVATOR MECHANIC APPRENTICE-BC; [facility] Active Problems & Conditions - [...] call: ~Last Drug Screen: 09/08/2023 ~Date/Initials: 10/14/2023 CASEWORK MANAGER>. Current Medication - Acetaminophen-Codeine 300-60 MG Oral [...] days, 0 refills EndCited Care Team - FERNANDO ESCALANTE, ANP- - Pain Management Health Reminders - Assess Tobacco Use satisfied 10/14/2023. * Progress note Date Encounter Last Documented by 10/14/2023 URINE RECHECK Last documented on 10/14/2023; 9:22 AM, RHYS WELDON APRN-FPA, ELEVATOR MECHANIC APPRENTICE-; [facility] Active Problems & Conditions - [...] need a refill in the next week. [place] [employer]IAN appropriate. Last UDS appropriate, this will be [...] side effects. Symptoms are stable and unchanged. [place] prescription monitoring and UDS have been appropriate. [...] syndrome] Chronic pain syndrome - [Z79.891 - exterminator (current) use of opiate analgesic] exterminator use of opiate analgesic Test Conclusions PHQ-9 [...] medication. F/U 3 months Plan StartCited - exterminator (current) use of opiate analgesic Lab: PRESCRIBED [...] but may be subject to typographical or director of advertising sales errors. Verify all diagnoses, medications, dosages, and patient instructions with patient and/or the originator of this document. Care Team - LARA MCDANIEL - Pain Management Health Reminders - Assess BMI satisfied 10/14/2023. - Assess Tobacco Use satisfied 10/14/2023. - Depression Screening satisfied 10/14/2023. - Follow up plan for Depression Screening satisfied 10/14/2023. * Progress note Date Encounter Last Documented by 09/09/2023 PAIN MANAGEMENT FOLLOW UP Last d ocumented on 09/09/2023; 9:15 AM, FERNANDO BERMUDEZ; [facility] Active Problems & Conditions - Congenital Clotting Factor Deficiency Factor V - Depression Chronic - Dyslipidemia - Hypothyroidism - Overweight Chief Complaint The Chief Complaint is: 3 MO FU. History of Present Illness Pain Location: entire spine Quality: deep, sharp, burning, aching, stinging, shooting, throbbing, numb Radiation: legs Severity: mod-to-sev Timing: continuous Associated Sx: weakness, nausea/vomiting, falls, dizziness, tremors Aggravating Factors:lying, in/out car, stairs, walking, bowel mvmt, sound, lifting, bending, light Past Tx: PT - Allergy list reviewed - Problem list reviewed - Medication reconciliation performed - Medication list reviewed - Prescription Drug Monitoring Program website checked. 08/16/23 - How much of the medication are you taking a day? QID - Last dose of medication? 3:30 AM - Last drug screen appropriate 06/16/23 Discussion: Patient returns in follow-up for medication [...] need a refill in the next week. [place] [employer] LIBRARIAN appropriate. Last UDS appropriate, this will be [...] side effects. Symptoms are stable and unchanged. [place] prescription monitoring and UDS have been appropriate. [...] medication. [place] been appropriate. Test Conclusions PHQ-9 Score: 2 Date: 06/16/23 BPI Score: Date: MiDAS Score: Date: SOAPP-R Score: 16 MOD Date: 06/16/23 ELAYNE Score:22=44% Date:06/16/23 Past Medical/Surgical History Reported: Surgery , tonsilectomy, [...] max 4/daystart 08/16, 30 days, 0 refills - Baclofen 10 [...] twice a day 30 days, 0 refills Social History Tobacco [...] Dry skin. 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 F/U 3 months Plan StartCited - residential (current) use of opiate analgesic Lab: PRESCRIBED DRUGS, medMATCH(R) Lab: DRUG MONITORING, PANEL 6 WITH CONFIRMATION, URINE EndCited StartCited - Multiple sclerosis Acetaminophen-Codeine 300-60 MG tablet 1 every 6 hours as needed, max 4/daystart 09/15, 30 days, 0 refills EndCited Urine sample ordered and sent to [...] but may be subject to typographical or director of advertising sales errors. Verify all diagnoses, medications, dosages, and patient instructions with patient and/or the originator of this document. Care Team - CARMELO MCDANIEL- - Pain Management Health Reminders - Assess BMI satisfied 09/09/2023. - Assess Tobacco Use satisfied 09/09/2023. - Depression Screening satisfied 09/09/2023. - Follow up plan for Depression Screening satisfied 09/09/2023. * Progress note Date Encounter Last Documented by 08/13/2023 RX ISSUE/REFILL Last documented on 08/13/2023; 10:43 AM, FERNANDO ESCALANTE ANP-; [facility] Active Problems & Conditions - [...] days, 0 refills EndCited Care Team - LARA MCDANIEL - Pain Management Health Reminders - Assess Tobacco Use satisfied 08/13/2023. * Progress note Date Encounter Last Documented by 08/05/2023 RX ISSUE/REFILL Last documented on 08/06/2023; 9:52 AM, FERNANDO BERMUDEZ; [facility] Active Problems & Conditions - [...] back to insurance to appeal. 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 Past Medical/Surgical History Reported: Surgery , tonsilectomy, [...] what insurance says. EndCited Care Team - LARA MCDANIEL - Pain Management Health Reminders - Assess Tobacco Use satisfied 08/05/2023. * Progress note Date Encounter Last Documented by 07/14/2023 RX ISSUE/REFILL Last documented on 07/14/2023; 12:24 PM, FERNANDO RHODES-; [facility] Active Problems & Conditions - Congenital Clotting Factor Deficiency Factor V - Depression Chronic - Dyslipidemia - Hypothyroidism - Overweight Chief Complaint Phone Call - Chief Concern: Reason for call:RX REFILL Patient is requesting a refill on TYLENOL #4 ~How is medication taken? QID ~How many are left?8 Risk Assessment Score: MOD ~[place]:06[place]16/23 Last Office Visit: 06/16/23 ~ pt phone # for Return call: [phone] ~Last Drug Screen:01/21/23 ~Date/Initials: 07/14/23 CB. Past Medical/Surgical History Reported: Surgery , [...] days, 0 refills EndCited Care Team - FERNANDO ESCALANTE ANP-BC - Pain Management Health Reminders - Assess Tobacco Use satisfied 07/14/2023.
--- OUTSIDE RECORDS SUMMARY | 2024-06-30 16:45 | XMS_ITS | Clinical Summary ---
Author Organization [facility] Address [address] [place] [address] Care Team Providers Care Business Team Leader Name Role Phone Hayes Fontanez Primary Care Provider [phone] Cj Ross MD Unavailable [phone] Allergies Active Allergy Reactions Criticality Noted Date Comments Gluten Unknown 12/02/2010 Other Other (See comments) High 01/04/2019 Bee venom, also ALL SSRIs Tramadol Other (See comments) Low 01/18/2019 Tramadol could trigger PML Venom-Honey Bee Unknown 12/02/2010 Medications b complex vitamins capsule Active omega 4-qdi-put-fish oil 100-160-1,000 mg capsule Active multivitamin tabletIndicatio ns:Vitamin Deficiency Prevention Active acetaminophen-c odeine (TYLENOL with CODEINE #4) 300-60 mg per tablet 10/14/2017 Active ocrelizumab (OCREVUS) 30 mg/mL solution 20 mL (600 mg total) every 6 (six) months Active zinc 50 mg tablet Take by mouth. Active ascorbic acid (ascorbic acid) 500 mg tablet,chewable Take 1 tablet/chew tab (500 mg total) by mouth daily Active magnesium gluconate 200 mg tabletIndicatio ns:hypomagnesem ia 1 tablet (200 mg total) Active naproxen (NAPROSYN) 500 mg tablet Take 1 tablet (500 mg total) by mouth 2 (two) times a day. 60 tablet 2 04/22/2018 Active baclofen (LIORESAL) 10 mg tablet TAKE 1 TABLET BY MOUTH THREE TIMES DAILY 90 tablet 5 07/06/2018 Active SUMAtriptan (IMITREX) 100 mg tablet TAKE 1/2 TO 1 TABLET BY MOUTH AT ONSET OF HEADACHE. MAY REPEAT IN 2 HOURS WITH MAXIUM OF 2 TABLETS PER 24 HOURS. 9 tablet 11 08/30/2018 Active Oyster Shell Calcium 500 500 mg calcium (1,250 mg) tablet 02/04/2021 Active mirtazapine (REMERON) 15 mg tablet 02/19/2021 Active triamcinolone (KENALOG) 0.5 % cream 02/26/2021 Active levothyroxine (SYNTHROID) 150 mcg tabletIndicatio ns:Thyroid goiter Take 1 tablet by mouth once daily 30 tablet 1 03/19/2022 Active phenazopyridine (PYRIDIUM) 200 mg tablet Take 1 tablet (200 mg total) by mouth 3 (three) times a day 6 tablet 02/15/2023 Active Active Problems Problem Noted Date Diagnosed Date Nontoxic multinodular goiter 12/21/2020 Thyroid goiter 12/08/2017 Multiple sclerosis 10/20/2017 Abnormal gait 07/01/2016 Cognitive complaints 08/21/2015 Depression 05/08/2008 Numbness and tingling 11/03/2006 Surgical History Surgery Date Site/Laterality Comments CA CHOLECYSTECTOMY Cholecystectomy - (Added by TW Conv) CA TONSILLECTOMY PRIMARY/SEC ONDARY <AGE 12 Tonsillectomy - (Added by TW Conv) CA HYSTEROSCOPY ENDOMETRIAL ABLATION Hysteroscopy With Endometrial Ablation - 02/2009 (Added by TW Conv) OOPHERECTOMY APPENDECTOMY SECTION GUM SURGERY Medical History Medical History Date Comments Personal history of other di seases of the nervous system and sense organs History of optic n euritis - (Added by TW Conv) Personal history of other me ntal and behavioral disorders History of depression - emeterio jean significantly better. Will switch her back to Cymbalta per her request. (09-27-08) (Added by TW Conv) Rash and other nonspecific s kin eruption Rash - resolved now; etiolog y undetermined. (11-17-2012) (Added by TW Conv) History of transfusion Thyroid goiter 12/08/2017 Peripheral neuropathy Depression Migraines Multiple sclerosis (HCC) Family History Medical History Relation Name Comments Multiple sclerosis Other 1 Multiple Sclerosis - (Added by TW Conv) Diabetes Other 2 Diabetes Mellit - (Added by TW Conv) Hypertension Other 3 Hypertension - (Added by TW Conv) Relation Name Status Comments Other 1 Other 2 Other 3 Social History Tobacco Use Types Packs/Day Years Used Date Smoking Tobacco: Former Smokeless Tobacco: Never Alcohol Use Standard Drinks/Week Comments Yes 0 (1 standard drink = 0.6 oz pur e alcohol) Personal Safety Answer Date Recorded Have you ever been in or are you currently in a harmful physical or emotional relationship or is someone making you feel afraid or unsafe? 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 [employer] Gender Identity Female 10/25/2020 2:44 PM CDT Sexual Orientation Straight 10/25/2020 2: 44 PM CDT Obstetrics History Last Filed Vital Signs Vital Sign Reading Time Taken Comments Blood Pressure 115/58 02/15/2023 6:43 AM CDT Pulse 64 02/15/2023 6:43 AM CDT Temperature 36.4 C (97.6 F) 02/15/2023 6:43 AM CDT Respiratory Rate 18 02/15/2023 6:43 AM CDT Oxygen Saturation 100% 02/15/2023 6:43 AM CDT Inhaled Oxygen Concentration - - Weight 81.6 kg (180 lb) 02/15/2023 6:43 AM CDT Height 165.1 cm (5' 5 ) 02/15/2023 6:43 AM CDT Body Mass Index 29.95 02/15/2023 6:43 AM CDT Plan of Treatment Health Maintenance Due Date Last Done Comments Cervical Cancer Screening 1976 Colon Cancer Screening-Colonoscopy 1976 Depression Screening 1976 Hepatitis C Screening 1976 DTaP/Tdap/Td Vaccine (1 - Tdap) 06/30/1987 Hepatitis B Screening 1994 Regular Well Visit/Exam 18-64 1994 Breast Cancer Screening-Mammogram 07/04/2023 07/03/2022, 12/24/2018, 12/24/2018 Influenza Vaccine (#1) 2023 Pneumococcal vaccine <65 Aged Out No longer eligible based on patient's age to complete this topic Insurance [id number] [place] [address] [facility] Care Teams Business Team Leader Relationship Specialty Start Date End Date Hayes Fontanez PA [address] [place] [address] PCP - General 11/28/16 Cj Ross MD [address] [place] [address] Neurology 06/11/21
--- OUTSIDE RECORDS SUMMARY | 2024-06-30 16:45 | XMS_ITS | Clinical Summary ---
Author Organization [facility] Address [address] [place] [address] Phone Care Team Providers Care Machining Supervisor Name Role Phone MARYANA ANP-BC, FERNANDO L Unavailable [phone] SAMUEL DELGADILLO, ERASTO Unavailable [phone] CALDERON GODOY PA-C Primary Care Provider [phone] Reason for Visit and Chief Complaint The Chief Complaint is: 3 MO FU Problems Includes: Problems addressed during this encounter and other active Problems All Visits Onset Date Resolved Date Provider Condition S tatus Dyslipidemia 03/12/2020 FERNANDO L MARYANA ANP-BC Active Last Documented On 0 11:12AM ; [facility] 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 03/12/2020 FERNANDO L MARYANA ANP-BC Active Last Documented On 0 11:12AM ; [facility] Depression Chronic 03/12/2020 FERNANDO L MARYANA ANP-BC Active Last Documented On 0 11:12AM ; [facility] Hypothyroidism 03/12/2020 FERNANDO L MARYANA ANP- BC Active Last Documented On 0 11:11AM ; [facility] Overweight 03/12/2020 FERNANDO L MARYANA ANP-BC A ctive Last Documented On 0 11:12AM ; [facility] Plan of Treatment Urine sample ordered and sent to lab for testing with confirmation via LCMS when appropriate. Urine drug testing is ordered to monitor opioid use and ongoing candidacy; verify compliant use of controlled substances and monitor for use of illicit substances as these may result in harmful interactions. 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 [G35 - Multiple sclerosis] - Last Documented On 09/09/2023 9:15AM ; [facility] - Chronic pain syndrome [G89.4 - Chronic pain syndrome] - Last Documented On 09/09/2023 9:15AM ; [facility] - half-way use of opiate analgesic [Z79.891 - half-way (current) use of opiate analgesic] - Last Documented On 09/09/2023 9:15AM ; [facility] Instructions Includes: Instructions from this encounter Education and Decision Aids were provided during visit for: Pill Count: 26 TYLENOL #4 Last Documented On 4 8:35AM ; [facility] Medical Equipment - Implanted Devices Includes: Current Devices No Medical Equipment Recorded Medications Includes: Medications discussed during this encounter and other current Medications Discontinued / Stopped on this date FERNANDO BERMUDEZ on 07/27/2023 Baclofen 10 MG Oral Tablet Provider: Manav BERMUDEZ Diagnosis: Multiple scleros is Last Documented On 09/09/2023 8:33AM By Destiny SEGOVIA ; [facility] valACYclovir HCl 500 MG Oral Tablet Provi azucena: Diagnosis: Last Documented On 09/09/2023 8:34AM By Destiny SEGOVIA ; [facility] New / Renewed during this visit FERNANDO BERMUDEZ on 09/09/2023 Acetaminophen-Codeine 300-60 MG Oral Tablet Provider: FERNANDO BERMUDEZ 30 day supply: 120 tablet, 0 refills Diagnosis: Multiple sclerosis 1 every 6 hours as needed, m ax 4/daystart 09/15 [address]: [facility] [address], [address] - Last Documented On 4 10:24AM By RHYS HOLM ; [facility] Current Medications (continue as prescribed) Acetaminophen-Codeine 300-60 MG Oral Tablet 10/14/2023 Provider: RHYS DONNELLY APRN-FPA, VISUAL MERCHANDISING ASSISTANT-BC Diagnosis: Multiple scleros is 1 every 6 hours as needed, max 4/day Last Documented On 4 10:25AM By RHYS DONNELLY [facility] ; [facility] Baclofen 10 MG Oral Tablet 08/31/2023 Provider: Manav RHODES- Diagnosis: TAKE 1 TABLET BY MOUTH EVERY 6 HOURS NEEDED Last Documented On 4 8:18AM By FERNANDO MIJARES [facility] ; [facility] valACYclovir HCl 500 MG Oral Tablet 08/28/2023 Provi azucena: Diagnosis: Last Documented On 09/09/2023 8:33AM By Destiny SEGOVIA ; [facility] Levothyroxine Sodium 150 MCG Oral Tablet 05/18/2023 Provider: CALDERON GODOY PA-C Diagnosis: Last Documented On 06/16/2023 8:54AM By Destiny SEGOVIA ; [facility] Oyster Shell Calcium 500 MG Oral Tablet 01/02/2023 P rovider: CALDERON GODOY PA-C Diagnosis: Last Documented On 01/21/2023 8:49AM By Destiny SEGOVIA ; [facility] Naproxen Sodium ER 500 MG Oral Tablet Extended R elease 24 Hour 03/12/2020 Provider: Diagnosis: Last Documented On 3 1:26PM By RHYS [facility] ; [facility] Ocrevus 300 MG/10ML Intravenous Solution 03/12/2020 Provider: Diagnosis: Last Documented On 3 1:26PM By RHYS DONNELLY [facility] ; [facility] Medications Administered Includes: Administered Medications from this encounter No Administered Medications Recorded Vital Signs Includes: Vital Signs from this encounter Vital Name 09/09/2023 08:30A Blood Pressure Sitting R 150/94 Pulse Rate-Sitting (bpm) 102 Temp-Temporal 96 Height (in) 55 Weight (lb) 167 Body Mass Index 38.8 Body Surface Area 1.6 Pain Level 6 Oxygen Saturation (%) 98 Note: IS NOT ON B/P MEDS, NO SX Last Documented: On 09/09/2023 8:33AM ; [facility] Results Includes: Results discussed during this encounter No Results Recorded For Specified Dates History of Present Illness Includes: History of Present Illness from this encounter HPI Pain Location: entire spine Quality: deep, sharp, burning, aching, stinging, shooting, throbbing, numbRadiation: legs Severity: jod-ic-jytJaneob: continuousAssociated Sx: weakness, nausea/vomiting, falls, dizziness, tremorsAggravating Factors:lying, in/out car, stairs, walking, bowel mvmt, sound, lifting, bending, lightPast Tx: PT - Allergy list reviewed - [...] need a refill in the next week. [place] COMPUTER ASSEMBLER appropriate. Last UDS appropriate, this will be [...] side effects. Symptoms are stable and unchanged. [place] prescription monitoring and UDS have been appropriate. [...] smoker CANNIBIS 06/16/2023 Last Documented On 4 8:29AM ; [facility] Tobacco non-user 07/07/2022 Last Documented On 4 8:29AM ; [facility] Current nonsmoker 07/23/2020 Last Documented On 4 8:29AM ; [facility] Using marijuana 03/12/2020 Last Documented On 4 8:29AM ; [facility] Non-smoker 03/12/2020 Last Documented On 4 8:29AM ; [facility] No menarche yet 03/12/2020 Last Documented On 4 8:29AM ; [facility] Smoking Status Unknown Procedures and Surgical History Includes: Procedures from this encounter Procedures Code Diagnosis Performing Provider Service L ocation Service Date CLINIC VISIT T1015 Multiple sclerosis, Chronic pain syndrome, half-way (current) use of opiate analgesic FERNANDO MIJARES [facility] 09/09/2023 Last Documented On 4 11:43AM ; [facility] use of tobacco assessment performed 1000F Last Documented On 4 8:35AM ; [facility] standardized depression screening: negative for symptoms 3351F Last Documented On 4 8:29AM ; [facility] review of medications documented 1160F Last Documented On 4 8:35AM ; [facility] assessment of suicide risk performed Last Documented On 4 8:29AM ; [facility] screening for adult depression: impressi on and score two Last Documented On 4 8:29AM ; [facility] SOAPP-R: total score 19 16 Last Documented On 4 8:29AM ; [facility] Medical History Includes: Medical History addressed during this encounter Description Last Updated Denies a fear of falling. 09/09/2023 Last Documented On 4 9:15AM ; [facility] Has had no fall in the last 12 months. 0 09/09/2023 Last Documented On 4 9:15AM ; [facility] 1 miscarriage(s) 03/12/2020 Last Documented On 4 8:29AM ; [facility] Currently wearing eyeglasses 03/12/2020 Last Documented On 4 8:29AM ; [facility] Previously 2 time(s) 03/12/2020 Last Documented On 4 8:29AM ; [facility] Surgery , tonsilectomy, gallbla dder, apendix, left ovary removal 03/12/2020 Last Documented On 4 8:29AM ; [facility] reviewed and unchanged since last visit 03/12/2020 Last Documented On 4 8:29AM ; [facility] Reported dietary history 03/12/2020 Last Documented On 4 8:29AM ; [facility] Taking medication 03/12/2020 Last Documented On 4 8:29AM ; [facility] Taking vitamin supplements 03/12/2020 Last Documented On 4 8:29AM ; [facility] Family History Includes: Family History addressed during this encounter Description Last Updated Family history reviewed - unchanged sinc e last visit 03/12/2020 Last Documented On 4 8:29AM ; [facility] Family history unchanged 03/12/2020 Last Documented On 4 8:29AM ; [facility] Review of Systems Includes: Review [...] Active Last Documented On 4 8:34AM ; [facility] Encounters Encounter Provider Location Date Check-In Time Check-Out Time Diagnosis PAIN MANAGEMENT FOLLOW UP FERNANDO BERMUDEZ [facility] 09/09/19 24 8:30AM 9:20AM Chronic Pain Syndrome,Mult iple Sclerosis Brain Stem,Intermediate Use of Opiate Analgesic Insurance Includes: Active Insurance Policies Plan Name Member ID Group # Subscriber Relationship Effect nba Dates 1 - [facility] [id number] DAPHNE NICOLE Self Clinical Notes Includes: Clinical Notes from this encounter * Progress note Date Encounter Last Documented by 09/09/2023 PAIN MANAGEMENT FOLLOW UP Last d ocumented on 09/09/2023; 9:15 AM, FERNANDO BERMUDEZ; [facility] Active Problems & Conditions [...] need a refill in the next week. [place] COMPUTER ASSEMBLER appropriate. Last UDS appropriate, this will be [...] side effects. Symptoms are stable and unchanged. [place] prescription monitoring and UDS have been appropriate. [...] syndrome [G89.4 - Chronic pain syndrome] - half-way use of opiate analgesic [Z79.891 - predatory animal exterminator (current) use of opiate analgesic] Therapy [...] medication. F/U 3 months Plan StartCited - half-way (current) use of opiate analgesic Lab: PRESCRIBED [...] but may be subject to typographical or type copyist errors. Verify all diagnoses, medications, dosages, and patient instructions with patient and/or the originator of this document. Care Team - CARMELO MCDANIEL- - Pain Management Health Reminders - Assess BMI satisfied 09/09/2023. - Assess Tobacco Use satisfied 09/09/2023. - Depression Screening satisfied 09/09/2023. - Follow up plan for Depression Screening satisfied 09/09/2023.
--- OUTSIDE RECORDS SUMMARY | 2024-06-30 16:45 | XMS_ITS | Referral Summary ---
Author Organization [facility] Address [address] [place] [address] Care Team Providers Care Loss Control Manager Name Role Phone Hayes Fontanez Primary Care Provider [phone] Cj Ross MD Unavailable [phone] Allergies Active Allergy Reactions Criticality Noted Date Comments Gluten Unknown 12/02/2010 Other Other (See comments) High 01/04/2019 Bee venom, also ALL SSRIs Tramadol Other (See comments) Low 01/18/2019 Tramadol could trigger PML Venom-Honey Bee Unknown 12/02/2010 Medications b complex vitamins capsule Active omega 1-tbp-est-fish oil 100-160-1,000 mg capsule Active multivitamin tabletIndicatio [...] 08/21/2015 Depression 05/08/2008 Numbness and tingling 11/03/2006 Social History Tobacco Use Types Packs/Day Years [...] on file Legal Sex Female 2:54 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
--- OUTSIDE RECORDS SUMMARY | 2024-06-30 16:45 | XMS_ITS | Clinical Summary ---
Author Organization [facility] Address [address] [place] [address] Phone Care Team Providers Care Candle Pourer Name Role Phone Hayes Fontanez Manan WEAVER Primary Care Provider [phone] Allergies Active Allergy Reactions Criticality Noted Date Comments Other-Environmental Allergen (Not Found In Search) Other (see Comments) High 01/04/2019 Bee venom, also ALL SSRIs Tramadol Other (see Comments) 01/04/2019 Cant take with MS Medications naproxen (NAPROSYN) 500 MG Tablet Take 500 mg by mouth 2 times daily. 6 Active TECFIDERA 240 MG CAPSULE DELAYED RELEASE Take 240 mg by mouth 2 times daily. 6 Active Dextromethorpha n-Guaifenesin (MUCINEX DM PO) Take 1 Tab by mouth as needed for Other (allergies). Reported on 08/13/2016 Active baclofen (LIORESAL) 10 MG Tablet Take 10 mg by mouth 3 times daily. Active ocrelizumab (OCREVUS) 300 MG/10ML SolutionIndicat ions:twice a year by Intravenous route. Active Multiple Vitamin (MULTI-VITAMIN PO) Take 1 Tab by mouth daily. Active MAGNESIUM PO Take 1 Tab by mouth daily. Active Zinc 50 MG Capsule Take by mouth daily. Active Ascorbic Acid (VITAMIN C PO) Take by mouth daily. Active B Complex Vitamins (VITAMIN-B COMPLEX PO) Take by mouth daily. Active SUMAtriptan (IMITREX) 100 MG Tablet Take 100 mg by mouth daily as needed. Use as directed. May repeat dose in 2 hours if headache recurs. Active buPROPion (WELLBUTRIN) 75 MG Tablet Take 75 mg by mouth 2 times daily. Active MEDICAL CANNABIS Active acetaminophen-c odeine (TYLENOL #4) 300-60 MG Tablet Take 1 Tab by mouth every 4 hours as needed. Active Mirtazapine (REMERON) 7.5 MG Tablet 9 Active NARCAN 4 MG/0.1ML Liquid CALL 911. ADMINISTER A SINGLE SPRAY INTRANASALLY INTO ONE NOSTRIL UPON SIGNS OF OPIOID OVERDOSE. MAY REPEAT AFTER 3 MINUTES IF NO RESPONSE. 0 9 Active Active Problems Problem Noted Date Diagnosed Date Adjustment disorder 11/04/2016 Uses marijuana 11/04/2016 SEAN (generalized anxiety disorder) 10/20/2016 Family History Medical History Relation Name Comments Cancer Maternal Grandfather colon Colon Polyps Mother and colon surge ry Relation Name Status Comments Father Alive Maternal Grandfather Mother Alive Social History Tobacco Use Types Packs/Day Years Used Date Smoking Tobacco: Never Smokeless Tobacco: Never Tobacco Cessation:Counseling Given: No Alcohol Use Standard Drinks/Week Comments Not Currently 0 (1 standard drink = 0.6 oz pur e alcohol) Sexually Active Control Partners Comments Yes Comments No Sex and Gender Information Value Date Recorded Sex Assigned at Not on file Legal Sex Female 11:13 PM CDT Gender Identity Not on file Sexual Orientation Not on file Last Filed Vital Signs Vital Sign Reading Time Taken Comments Blood Pressure 128/88 04/01/2019 8:26 AM JAVA WEBSPHERE DEVELOPER Pulse 83 04/01/2019 8:26 AM JAVA WEBSPHERE DEVELOPER Temperature 36.4 C (97.6 F) 04/01/2019 8:26 AM JAVA WEBSPHERE DEVELOPER Respiratory Rate 14 04/01/2019 8:26 AM JAVA WEBSPHERE DEVELOPER Oxygen Saturation 99% 04/01/2019 8:26 AM JAVA WEBSPHERE DEVELOPER Inhaled Oxygen Concentration - - Weight 102.7 kg (226 lb 6.4 oz) 04/01/2019 8:26 AM JAVA WEBSPHERE DEVELOPER Height 167.6 cm (5' 6 ) 04/01/2019 8:26 AM JAVA WEBSPHERE DEVELOPER Body Mass Index 36.54 04/01/2019 8:26 AM JAVA WEBSPHERE DEVELOPER Plan of Treatment Upcoming Encounters Date Type Department Care Team (Late st Contact Info) Description 07/01/2024 3:00 PM JAVA WEBSPHERE DEVELOPER Office Visit [facility] [address] [place] [address] John Zambrano MD [address], [address] [address] Health Maintenance Due Date Last Done Comments TdaP Immunization 1975 Hepatitis B Immunization (1 of 3 - 19+ 3-dose series) 06/30/1995 Pap Smear 1997 Cervical Cancer Screening (CCS) 2006 HPV/Cotest 2006 Mammogram 12/25/2019 12/24/2018 Influenza Immunization (#1) 2023 SARS-COV-2 Immunization ( season) 2023 Colonoscopy High Risk 02/01/2029 02/01/2019 Colonoscopy 02/01/2029 02/01/2019 Colorectal Cancer Screening 02/01/2029 Respiratory Syncytial Virus (RSV) Immunization (Adult) (1 - 1-dose 75+ series) 06/30/2051 Discussion re Starting/Frequ ency of Mammograms Completed 12/24/2018 Hepatitis C Virus (HCV) Screening Completed 019 Meningococcal Immunization (ACWY) Aged Out No longer eligible based on patient's age to complete this topic Pneumococcal Immunization Combined Aged Out No longer eligible based on patient's age to complete this topic Rotavirus Immunization Aged Out No lo nger eligible based on patient's age to complete this topic Procedures Procedure Name Priority Date/Time Associated Diagnosis Comments SHANTEL SCREENING BILATERAL DIGITAL W CAD W JIM Routine 12/24/2018 10:51 AM CDT Encounter for screening mammogram for malignant neoplasm of breast from Last 3 Months or Most Recently Relevant to Health Maintenance Results * SHANTEL SCREENING BILATERAL DIGITAL W CAD W JIM (12/24/2018 10:51 AM CDT) Anatomical Region Laterality Modality breast Bilateral Mammography 12/24/2018 10:2 9 AM CDT Narrative 12/24/2018 4:19 PM CDT - SHANTEL SCREENING BILATERAL DIGITAL W CAD W JIM BILATERAL DIGITAL SCREENING MAMMOGRAM 3D/2D WITH CAD WITH MEDIOLATERAL OBLIQUE CRANIOCAUDAL: 12/24/2018 The study was acquired using digital technology and interpreted from soft copy. Current study was also evaluated with ICAD version 7.2. CLINICAL: Baseline screening. Patient has no complaints. No personal history of cancer. No family history of breast cancer. COMPARISONS: No prior exams were available for comparison. BREAST TISSUE:There are scattered fibroglandular densities in both breasts. FINDINGS: No significant masses, calcifications, or other findings are seen in either breast. IMPRESSION: BI-RAD 1 NEGATIVE There is no mammographic evidence of malignancy. A 1 year screening mammogram is recommended. The patient has been or will be contacted. The patient will be entered into a reminder system with a target due date of 1 year for her next screening exam. Electronically signed by: Jordan alvarado/penrad:12/24/2018 15:22:34 Steward/Stewardess Third: Tali Baeza (R)), [facility] letter sent: Normal Exam Reading location: [place] BI-RADS: 1 Negative Procedure Note Jordan Cao MD - 12/24/2018 - SHANTEL SCREENING BILATERAL DIGITAL W CAD W JIM BILATERAL DIGITAL SCREENING MAMMOGRAM 3D/2D WITH CAD WITH MEDIOLATERAL OBLIQUE CRANIOCAUDAL: 12/24/2018 The study was acquired using digital technology and interpreted from soft copy. Current study was also evaluated with ICAD version 7.2. CLINICAL: Baseline screening. Patient has no complaints. No personal history of cancer. No family history of breast cancer. COMPARISONS: No prior exams were available for comparison. BREAST TISSUE:There are scattered fibroglandular densities in both breasts. FINDINGS: No significant masses, calcifications, or other findings are seen in either breast. IMPRESSION: BI-RAD 1 NEGATIVE There is no mammographic evidence of malignancy. A 1 year screening mammogram is recommended. The patient has been or will be contacted. The patient will be entered into a reminder system with a target due date of 1 year for her next screening exam. Electronically signed by: Jordan alvarado/penrad:12/24/2018 15:22:34 Steward/Stewardess Third: Tali Golden (R)([place]), [facility] letter sent: Normal Exam Reading location: [place] BI-RADS: 1 Negative Carola Holden AUTOMOBILE RENTAL REPRESENTATIVE, CNM IMG MAMMO ORDERABLES Annabelle l Result from Last 3 Months or Most Recently Relevant to Health Maintenance Insurance [place] Care Teams Candle Pourer Relationship Specialty Start Date End Date Hayes Fontanez, [address] [place] [address] PCP - General Physician Photographic Platemaker 11/21/15
--- OUTSIDE RECORDS SUMMARY | 2024-06-30 16:45 | XMS_ITS ---
Care Plan - [facility] Created on: June 30, 2024 DAPHNE NICOLE : 1975 Sex: Female Author Organization [facility] Address [address] [place] [address] Phone Care Team Providers Care Pearl Restorer Name Role Phone MARYANA BERMUDEZ, FERNANDO Urena Unavailable [phone] SAMUEL DELGADILLO, ERASTO Unavailable [phone] [place], CALDERON Primary Care Provider [phone]
== END 2024-06-30 15:41 | disposition home or self-care (01) ==
PROVIDERS: PCP Physician Assistant; Visit Provider Physician Assistant
DX: N23 Unspecified renal colic (principal)
CPT/HCPCS: 76775

== ENCOUNTER 2024-07-06 09:59 | Outpatient (CLI) | payer OTHER, SELFPAY ==
--- NOTE | ~2024-07-06 | MM_ITS ---
EXAMINATION: MM screening river BI w eugene HISTORY: Screening mammogram TECHNIQUE: Craniocaudal and mediolateral oblique 3-D tomosynthesis images were obtained and synthetic 2-D images were generated. CAD analysis was submitted and interpreted. COMPARISON: 07/02/2022 BREAST PARENCHYMAL COMPOSITION:Dense: The breasts are heterogeneously dense, which may obscure small masses. FINDINGS: No suspicious mass, calcification, or architectural distortion are identified in either manuel ast to suggest malignancy. There has been no suspicious interval change. IMPRESSION: No mammographic evidence of malignancy. Recommend routine screening mammography in one year. BI-RADS Category 1: Negative Reviewed, dictated and finalized at location .
--- OUTSIDE RECORDS SUMMARY | 2024-07-06 11:04 | XMS_ITS | Clinical Summary ---
Author Organization [facility] Address [address] [place] [address] Phone Care Team Providers Care Mortgage Loan Closer Name Role Phone MARYANA ANP-BC, FERNANDO L Unavailable [phone] SAMUEL DELGADILLO, ERASTO Unavailable [phone] CALDERON GODOY PA-C Primary Care Provider [phone] Reason for Visit and Chief Complaint RX ISSUE/REFILL Problems Includes: Problems addressed during this encounter and other active Problems All Visits Onset Date Resolved Date Provider Condition S tatus Dyslipidemia 03/12/2020 FERNANDO L MARYANA ANP-BC Active Last Documented On 0 11:12AM ; [facility] 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 03/12/2020 FERNANDO L MARYANA ANP-BC Active Last Documented On 0 11:12AM ; [facility] Depression Chronic 03/12/2020 FERNANDO L MARYANA ANP-BC Active Last Documented On 0 11:12AM ; [facility] Hypothyroidism 03/12/2020 FERNANDO L MARYANA ANP- BC Active Last Documented On 0 11:11AM ; [facility] Overweight 03/12/2020 FERNANDO L MARYANA ANP-BC A ctive Last Documented On 0 11:12AM ; [facility] Plan of Treatment No [...] On 4 10:43AM By FERNANDO BERMUDEZ ; [facility] New / Renewed during this visit FERNANDO BERMUDEZ on 08/13/2023 Acetaminophen-Codeine 300-60 MG Oral Tablet Provider: FERNANDO BERMUDEZ 30 day supply: 120 tablet, 0 refills Diagnosis: Multiple sclerosis 1 every 6 hours as needed, m ax 4/daystart 08/16 Pharmacy: [address], [address] - Last Documented On 4 8:53AM By FERNANDO BERMUDEZ ; [facility] Current Medications (continue as prescribed) Acetaminophen-Codeine 300-60 MG Oral Tablet 10/14/2023 Provider: RHYS DONNELLY APRN-ZAHIRAAMIHAI Diagnosis: Multiple scleros is 1 every 6 hours as needed, max 4/day Last Documented On 4 10:25AM By RHYS HOLM ; [facility] Baclofen 10 MG Oral Tablet 08/31/2023 Provider: Manav BERMUDEZ Diagnosis: TAKE 1 TABLET BY MOUTH EVERY 6 HOURS NEEDED Last Documented On 4 8:18AM By FERNANDO BERMUDEZ ; [facility] valACYclovir HCl 500 MG Oral Tablet 08/28/2023 Provi azucena: Diagnosis: Last Documented On 09/09/2023 8:33AM By Destiny SEGOVIA ; [facility] Levothyroxine Sodium 150 MCG Oral Tablet 05/18/2023 Provider: CALDERON GODOY PA-C Diagnosis: Last Documented On 06/16/2023 8:54AM By Destiny SEGOVIA ; [facility] Oyster Shell Calcium 500 MG Oral Tablet 01/02/2023 P rovider: CALDERON GODOY PA-C Diagnosis: Last Documented On 01/21/2023 8:49AM By Destiny SEGOVIA ; [facility] Naproxen Sodium ER 500 MG Oral Tablet Extended R elease 24 Hour 03/12/2020 Provider: Diagnosis: Last Documented On 3 1:26PM By RHYS HOLM ; [facility] Ocrevus 300 MG/10ML Intravenous Solution 03/12/2020 Provider: Diagnosis: Last Documented On 3 1:26PM By RHYS HOLM ; [facility] Medications Administered Includes: Administered Medications from this encounter No Administered Medications Recorded Results Includes: Results discussed during this encounter No Results Recorded For Specified Dates History of Present Illness Includes: History of Present Illness from this encounter No History of Present Illness Recorded Social History Description Last Updated Current smoker CANNIBIS 06/16/2023 Last Documented On 4 8:57AM ; [facility] Tobacco non-user 07/07/2022 Last Documented On 4 8:57AM ; [facility] Current nonsmoker 07/23/2020 Last Documented On 4 8:57AM ; [facility] Using marijuana 03/12/2020 Last Documented On 4 8:57AM ; [facility] Non-smoker 03/12/2020 Last Documented On 4 8:57AM ; [facility] No menarche yet 03/12/2020 Last Documented On 4 8:57AM ; [facility] Smoking Status Unknown Medical History Includes: Medical History addressed during this encounter Description Last Updated 1 miscarriage(s) 03/12/2020 Last Documented On 4 8:57AM ; [facility] Currently wearing eyeglasses 03/12/2020 Last Documented On 4 8:57AM ; [facility] Previously 2 time(s) 03/12/2020 Last Documented On 4 8:57AM ; [facility] Surgery , tonsilectomy, gallbla dder, apendix, left ovary removal 03/12/2020 Last Documented On 4 8:57AM ; [facility] reviewed and unchanged since last visit 03/12/2020 Last Documented On 4 8:57AM ; [facility] Reported dietary history 03/12/2020 Last Documented On 4 8:57AM ; [facility] Taking medication 03/12/2020 Last Documented On 4 8:57AM ; [facility] Taking vitamin supplements 03/12/2020 Last Documented On 4 8:57AM ; [facility] Family History Includes: Family [...] Active Last Documented On 4 8:34AM ; [facility] Encounters Encounter Provider Location Date Check-In Time Check-Out Time Diagnosis RX ISSUE/REFILL FERNANDO BERMUDEZ 08/13/2023 8:57AM 11:59PM Insurance Includes: Active Insurance Policies Plan Name Member ID Group # Subscriber Relationship Effect nba Dates 1 - [id number] [id number] DAPHNE NICOLE Self Clinical Notes Includes: Clinical Notes from this encounter * Progress note Date Encounter Last Documented by 08/13/2023 RX ISSUE/REFILL Last documented on 08/13/2023; 10:43 AM, FERNANDO RHODES-CARMELLA; [facility] Active Problems & Conditions [...]
--- OUTSIDE RECORDS SUMMARY | 2024-07-06 11:04 | XMS_ITS | Clinical Summary ---
Author Organization [facility] Address [address] [place] [address] Phone Care Team Providers Care Fabric Separator Operator Name Role Phone MARYANA ANP-BC, FERNANDO L Unavailable [phone] SAMUEL DELGADILLO, ERASTO Unavailable [phone] CALDERON GODOY PA-C Primary Care Provider [phone] Reason for Visit and Chief Complaint The Chief Complaint is: Random UDS and pill count Problems Includes: Problems addressed during this encounter and other active Problems All Visits Onset Date Resolved Date Provider Condition S tatus Dyslipidemia 03/12/2020 FERNANDO L MARYANA ANP-BC Active Last Documented On 0 11:12AM ; [facility] 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 03/12/2020 FERNANDO L MARYANA ANP-BC Active Last Documented On 0 11:12AM ; [facility] Depression Chronic 03/12/2020 FERNANDO L MARYANA ANP-BC Active Last Documented On 0 11:12AM ; [facility] Hypothyroidism 03/12/2020 FERNANDO L MARYANA ANP- BC Active Last Documented On 0 11:11AM ; [facility] Overweight 03/12/2020 FERNANDO L MARYANA ANP-BC A ctive Last Documented On 0 11:12AM ; [facility] Plan of Treatment Urine sample ordered and sent to lab for testing with confirmation via LCMS when appropriate. Urine drug testing is ordered to monitor opioid use and ongoing candidacy; verify compliant use of controlled substances and monitor for use of illicit substances as these may result in harmful interactions. 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 - Last Documented On 10/14/2023 9:22AM ; [facility] - [G89.4 - Chronic pain syndrome] Chronic pain syndrome - Last Documented On 10/14/2023 9:22AM ; [facility] - [Z79.891 - [facility] (current) use of opiate analgesic] terminal gauger supervisor use of opiate analgesic - Last Documented On 10/14/2023 9:22AM ; [facility] Instructions Includes: Instructions from this encounter Education and Decision Aids were provided during visit for: Pill Count: ten TYLENOL #4 Last Documented On 4 8:51AM ; [facility] Medical Equipment - Implanted Devices Includes: Current Devices No Medical Equipment Recorded Medications Includes: Medications discussed during this encounter and other current Medications Current Medications (continue as prescribed) Acetaminophen-Codeine 300-60 MG Oral Tablet 10/14/2023 Provider: MAT BERGER- Diagnosis: Multiple scleros is 1 every 6 hours as needed, max 4/day Last Documented On 4 10:25AM By RHYS RIVERO- ; [facility] Baclofen 10 MG Oral Tablet 08/31/2023 Provider: Manav BERMUDEZ Diagnosis: TAKE 1 TABLET BY MOUTH EVERY 6 HOURS NEEDED Last Documented On 4 8:18AM By FERNANDO RHODES- ; [facility] valACYclovir HCl 500 MG Oral Tablet 08/28/2023 Provi azucena: Diagnosis: Last Documented On 09/09/2023 8:33AM By Destiny SEGOVIA ; [facility] Levothyroxine Sodium 150 MCG Oral Tablet 05/18/2023 Provider: CALDERON GODOY PA-C Diagnosis: Last Documented On 06/16/2023 8:54AM By Destiny SEGOVIA ; [facility] Oyster Shell Calcium 500 MG Oral Tablet 01/02/2023 Buddy rider: CALDERON GODOY PA-C Diagnosis: Last Documented On 01/21/2023 8:49AM By Destiny SEGOVIA ; [facility] Naproxen Sodium ER 500 MG Oral Tablet Extended R elease 24 Hour 03/12/2020 Provider: Diagnosis: Last Documented On 3 1:26PM By RHYS HOLM ; [facility] Ocrevus 300 MG/10ML Intravenous Solution 03/12/2020 Provider: Diagnosis: Last Documented On 3 1:26PM By RHYS HOLM ; [facility] Medications Administered Includes: Administered Medications from this encounter No Administered Medications Recorded Vital Signs Includes: Vital Signs from this encounter Vital Name 10/14/2023 08:53A Temp-Temporal 97.2 Height (in) 55 Weight (lb) 168 Body Mass Index 39 Body Surface Area 1.6 Last Documented: On 10/14/2023 8:53AM ; [facility] Results Includes: Results discussed during this encounter No Results Recorded For Specified Dates History of Present Illness Includes: History of Present Illness from this encounter HPI Pain Location: entire spine Quality: deep, sharp, burning, aching, stinging, shooting, throbbing, numbRadiation: legs Severity: [id number]: continuousAssociated Sx: weakness, nausea/vomiting, falls, dizziness, tremorsAggravating [...] need a refill in the next week. [place] MACHINE ACCOUNTANT appropriate. Last UDS appropriate, this will be [...] side effects. Symptoms are stable and unchanged. [place] prescription monitoring and UDS have been appropriate. [...] 06/16/2023 Last Documented On 4 8:49AM ; [facility] Tobacco non-user 07/07/2022 Last Documented On 4 8:49AM ; [facility] Current nonsmoker 07/23/2020 Last Documented On 4 8:49AM ; [facility] No consumption of alcohol 03/12/2020 Last Documented On 4 8:49AM ; [facility] No tobacco use 03/12/2020 Last Documented On 4 8:49AM ; [facility] Using marijuana 03/12/2020 Last Documented On 4 8:49AM ; [facility] Non-smoker 03/12/2020 Last Documented On 4 8:49AM ; [facility] No menarche yet 03/12/2020 Last Documented On 4 8:49AM ; [facility] A high-salt diet not from processed food s 03/12/2020 Last Documented On 4 8:49AM ; [facility] A high-sugar diet not including sweet sn acks 03/12/2020 Last Documented On 4 8:49AM ; [facility] Diet does not need elimination of junk f ood 03/12/2020 Last Documented On 4 8:49AM ; [facility] Diet does not need reduction of caloric intake 03/12/2020 Last Documented On 4 8:49AM ; [facility] Diet provides sufficient food variety Last Documented On 4 8:49AM ; [facility] Diet provides sufficient fruit 0 Last Documented On 4 8:49AM ; [facility] Diet provides sufficient vegetables 02/25 Last Documented On 4 8:49AM ; [facility] No high-fat diet 03/12/2020 Last Documented On 4 8:49AM ; [facility] Smoking Status Unknown Procedures and Surgical History Includes: Procedures from this encounter Procedures Code Diagnosis Performing Provider Service L ocation Service Date CLINIC VISIT T1015 Chronic pain syndrome, Multiple sclerosis, terminal gauger supervisor (current) use of opiate analgesic RHYS DONNELLY MUCKER OPERATOR-FPA, PERINATAL INSTRUCTOR-BC [facility] 10/14/2023 Last Documented On 4 3:42PM ; [facility] use of tobacco assessment performed 1000F Last Documented On 4 8:50AM ; [facility] standardized depression screening: negative for symptoms 3351F Last Documented On 4 8:50AM ; [facility] review of medications documented 1160F Last Documented On 4 8:50AM ; [facility] assessment of suicide risk performed Last Documented On 4 8:50AM ; [facility] screening for adult depression: impressi on and score two Last Documented On 4 8:50AM ; [facility] SOAPP-R: total score 19 16 Last Documented On 4 8:50AM ; [facility] Medical History Includes: Medical History addressed during this encounter Description Last Updated Denies a fear of falling. 09/09/2023 Last Documented On 4 8:49AM ; [facility] Has had no fall in the last 12 months. 0 09/09/2023 Last Documented On 4 8:49AM ; [facility] 1 miscarriage(s) 03/12/2020 Last Documented On 4 8:49AM ; [facility] Currently wearing eyeglasses 03/12/2020 Last Documented On 4 8:49AM ; [facility] Previously 2 time(s) 03/12/2020 Last Documented On 4 8:49AM ; [facility] Surgery , tonsilectomy, gallbla dder, apendix, left ovary removal 03/12/2020 Last Documented On 4 8:49AM ; [facility] reviewed and unchanged since last visit 03/12/2020 Last Documented On 4 8:49AM ; [facility] Current toilet training has been complet ed 03/12/2020 Last Documented On 4 8:49AM ; [facility] No previous psychiatric treatment 2019 Last Documented On 4 8:49AM ; [facility] Reported dietary history 03/12/2020 Last Documented On 4 8:49AM ; [facility] Taking medication 03/12/2020 Last Documented On 4 8:49AM ; [facility] Taking vitamin supplements 03/12/2020 Last Documented On 4 8:49AM ; [facility] Family History Includes: Family History addressed during this encounter Description Last Updated Family history reviewed - unchanged sinc e last visit 03/12/2020 Last Documented On 4 8:49AM ; [facility] Family history unchanged 03/12/2020 Last Documented On 4 8:49AM ; [facility] Review of Systems Includes: Review of Systems [...] Active Last Documented On 4 8:34AM ; [facility] Encounters Encounter Provider Location Date Check-In Time Check-Out Time Diagnosis URINE RECHECK RHYS DONNELLY MUCKER OPERATOR-FPA, PERINATAL INSTRUCTOR-BC [facility] 10/14/19 24 9:15AM 8:56AM Chronic Pain Syndrome,Mult iple Sclerosis Brain Stem,Transport Conductor Use of Opiate Analgesic Insurance Includes: Active Insurance Policies Plan Name Member ID Group # Subscriber Relationship Effect nba Dates 1 - [facility] [id number] DAPHNE NICOLE Self Clinical Notes Includes: Clinical Notes from this encounter * Progress note Date Encounter Last Documented by 10/14/2023 URINE RECHECK Last documented on 10/14/2023; 9:22 AM, RHYS Trevino CONY MUCKER OPERATOR-FPA, PERINATAL INSTRUCTOR-BC; [facility] Active Problems & Conditions [...] need a refill in the next week. [place] MACHINE ACCOUNTANT appropriate. Last UDS appropriate, this will be [...] side effects. Symptoms are stable and unchanged. [place] prescription monitoring and UDS have been appropriate. [...] syndrome] Chronic pain syndrome - [Z79.891 - [facility] (current) use of opiate analgesic] [facility] use of opiate analgesic Test Conclusions PHQ-9 [...] medication. F/U 3 months Plan StartCited - [facility] (current) use of opiate analgesic Lab: PRESCRIBED [...] but may be subject to typographical or draft roller picker errors. Verify all diagnoses, medications, dosages, and patient instructions with patient and/or the originator of this document. Care Team - CARMELO MCDANIEL- - Pain Management Health Reminders - Assess BMI satisfied 10/14/2023. - Assess Tobacco Use satisfied 10/14/2023. - Depression Screening satisfied 10/14/2023. - Follow up plan for Depression Screening satisfied 10/14/2023.
--- OUTSIDE RECORDS SUMMARY | 2024-07-06 11:04 | XMS_ITS | Data Portability ---
Author Organization [facility] [place] Address [address] [place] [address] [place] [address] Care Team Providers Care Draw Frame Runner Name Role Phone CALDERON GODOY Primary Care Provider Assessment Encounter Date Assessment Date Assessment LastModified by Organization Details LastModified Time 04/18/2024 04/18/2024 Annual gynecological exam performed. Patient will come back in a year unless there are new symptoms. [email or web address] Not available 04/18/2024 09:33:59 Plan of Treatment Reminders Order Date Submit Date Provider Last Modified By Organization Details Last Modified Time Details Appointments None recorded. Lab urinalysis, dipstick 2023 024 [place], [address], [address], [place], [address], 4 10:15:27 urinalysis, dipstick 2023 024 [email or web address] 1 [place], [address], [place], [address], 4 14:55:55 culture, urine 2023 024 [facility] (Lab), [address], [place], [address], 4 07:18:45 unlisted lab - women's health swab plus, TERRI 2023 024 [facility] (Lab), [address], [place], [address], 4 07:18:44 Referral urologist referral 2023 [facility], 2 [facility], Rahul [facility], [place], [address], 4 04:02:24 Procedures None recorded. Surgeries None recorded. Imaging US, pelvis [address], [address], [place], [address], 4 20:39:17 US, transvagina l [address], [address], [place], [address], 20:39:17 MAMMO, screening, digital, bilateral 2023 [email or web address] Not available 5 18:55:16 US, pelvis, complete 2023 [facility], [address], [place], [address], 4 04:02:24 Medication Orders Cipro [address] [facility], [address] [place], [address], 4 09:35:32 Diflucan [address] [facility], [address] [place], [address], 4 09:35:36 metronidazo le [address] [facility], [address] [place], [address], 4 10:41:43 Diflucan 150 mg tablet 2023 024 [email or web address] 1 [facility], [address] [place] [address], [address], 09:35:25 Patient TargetsNo targets recorded. Patient InstructionsNo instructions recorded. Reason for Referral Urologist Referral for Urina ry symptoms Referring Physician: Elsy Auguste, STORE ADMINISTRATOR, Encounter Date: 04/18/2024 Results Created Date Observation Date Name Description Value Unit Range Abnormal Flag Note LastModifiedBy Organization Detail LastModifiedTime 02/12/2002/12/2024 [facility] SWAB PLUS, TERRI bacterial vaginosis (bv), tma Negati ve negati ve Not Available [facility] (Lab) [address] [facility] [address], [place], [address], 02/14/2024 07:18:44 02/12/2002/12/2024 WOMEN 'S HEALT H SWAB PLUS, TERRI jose maria species, tma Positi ve negati ve abnormal Not Available [facility] (Lab) [address] [place], [address], 02/14/2024 07:18:44 02/12/20 24 02/12/2024 [facility] ojse maria glabrata, tma Negati ve negati ve Not Available [facility] (Lab) [address] [place], [address], 02/14/2024 07:18:44 02/12/20 24 02/12/2024 [facility], TERRI trichomonas vaginalis, tma Negati ve negati ve Not Available [facility] (Lab) [address] [place], [address], 02/14/2024 07:18:44 02/12/20 24 02/12/2024 [facility], TERRI chlamydia trachomatis, PCR Negati ve negati ve Not Available [facility] (Lab) [address] [place], [address], 02/14/2024 07:18:44 02/12/20 24 02/12/2024 WOMEN 'S [...] ded in this panel . Not Available [facility] (Lab) [address], [place], [address], 02/14/2024 07:18:44 02/12/20 24 02/12/2024 CULTU RE: URINE result report SEE RESULT S BELOW Test: Cultu re: Urine Speci men Sourc e: Urine - Clean Catch Speci men Type: Urine Speci men Date: 02/11 1511 Resul t Date: 02/13 0615 Resul t Statu s: Final resul t Abnor mal: No Resul ting Lab: [facility] [address] [facility] [address] Tel: CULTU RE ----- ----- ----- --- No growt h in 1 day (dete ction level of 10,00 0 colon ies / ml.) Not Available [facility] (Lab) [address], [place], [address], 02/14/2024 07:18:45 02/12/2002/12/2024 urina lysis , dipst ick Leukocytes trace Not Available [facility] ishaan [address], [place], [address], 02/12/2024 14:51:55 02/12/2002/12/2024 urina lysis , dipst ick Nitrite normal Not Available [place] [address], [place], [address], 02/12/2024 14:51:55 02/12/2002/12/2024 urina lysis , dipst ick Urobilinogen normal Not Available [facility] eris [address], [place], [address], 02/12/2024 14:51:55 02/12/2002/12/2024 urina lysis , dipst ick Protein trace Not Available [place] [address], [place], [address], 02/12/2024 14:51:55 02/12/2002/12/2024 urina lysis , dipst ick pH 5 Not Available [place] [address], [place], [address], 02/12/2024 14:51:55 02/12/2002/12/2024 urina lysis , dipst ick Specific [place] 1.010 Not Available [facility] [address], [place], [address], 02/12/2024 14:51:55 02/12/2002/12/2024 urina lysis , dipst ick Ketone normal Not Available [place] [address], [place], [address], 02/12/2024 14:51:55 02/12/20 24 02/12/2024 urina lysis , dipst ick Bilirubin normal Not Available [facility] [address], [place], [address], 02/12/2024 14:51:55 02/12/20 24 02/12/2024 urina lysis , dipst ick Glucose normal Not Available [place] [address], [place], [address], 02/12/2024 14:51:55 02/12/2002/12/2024 urina lysis , dipst ick Appearance normal Not Available [facility] [address], [place], [address], 02/12/2024 14:51:55 02/12/20 24 02/12/2024 urina lysis , dipst ick Color normal Not Available [place] [address], [place], [address], 02/12/2024 14:51:55 03/18/20 24 03/18/2024 CULTU RE: URINE result report SEE RESULT S BELOW Test: Cultu re: Urine Speci men Sourc e: Urine - Clean Catch Speci men Type: Urine Speci men Date: 03/18 1030 Resul t Date: 03/19 2251 Resul t Statu s: Final resul t Abnor mal: No Resul ting Lab: [facility] [address] [facility] [address] Tel: CULTU RE ----- ----- ----- --- No growt h in 1 day (dete ction level of 10,00 0 colon ies / ml.) Not Available [facility] (Lab) [address], [place], [address], 03/19/2024 23:54:26 03/18/20 24 03/18/2024 urina lysis , dipst ick Leukocytes trace Not Available [facility] ishaan [address], [place], [address], 03/18/2024 10:15:03 03/18/20 24 03/18/2024 urina lysis , dipst ick Protein trace Not Available [place] [address], [place], [address], 03/18/2024 10:15:03 03/18/20 24 03/18/2024 urina lysis , dipst ick pH 5 Not Available [place] [address], [place], [address], 03/18/2024 10:15:03 03/18/20 24 03/18/2024 urina lysis , dipst ick Blood ++ Not Available [place] [address], [place], [address], 03/18/2024 10:15:03 03/18/20 24 03/18/2024 urina lysis , dipst ick Specific [place] 1.005 Not Available [facility] [address], [place], [address], 03/18/2024 10:15:03 04/18/20 24 04/18/2024 IMAGE GUIDE [...] CATARINA Mann ret on 025 at 1619 EXCEL EXPERT ----- ----- ----- ----- ----- ----- ----- [...] as clini regina warrasael nted. Not Available [facility] (Lab) [address], [place], [address], 05/02/2024 17:23:08 04/18/20 24 04/18/2024 TRICH OMONA S VAGIN NATHALIE (RRNA ) trichomonas vaginalis ribosomal RNA (rrna) Negati ve negati ve Not Available [facility] (Lab) [address], [place], [address], 05/02/2024 17:23:09 04/18/20 24 04/18/2024 CT/GC (PRIYANK) , THINP REP VIAL chlamydia trachomatis, PCR Negati ve negati ve Not Available [facility] (Lab) [address], [place], [address], 05/02/2024 17:23:09 04/18/20 24 04/18/2024 CT/GC (PRIYANK) , THINP REP VIAL neisseria gonorrhoeae, PCR Negati ve negati ve Not Available [facility] (Lab) [address], [place], [address], 05/02/2024 17:23:09 04/21/20 24 04/21/2024 US, pelvi s No observ ation record ed. [email or web address] [place] [address], [place], [address], 04/21/2024 13:46:17 04/21/20 24 04/21/2024 US, trans vagin al No observ ation record ed. [email or web address] [place] [address], [place], [address], 04/21/2024 13:46:36 04/21/20 24 04/21/2024 US, pelvi s No observ ation record ed. cyndy Loly [address], [place], [address], 04/29/2024 09:31:03 07/07/19 25 07/06/2024 imagi ng/di agnos tic resul t No observ ation record ed. [address], [place], [address], 07/06/2024 11:59:44 Result Notes None recorded. Problems Name Problem SNOMED Code Status Onset Date Resolution Date Notes Provider Name and Address Organization Details Recorded Time Speciali zed medical examinat ion Completed 201411/21/2020 Routine gynecolo gical examinat ion;Prac libby ID: 0001 Roseanna Nathan MD [address], [place], [address], [place] [facility] 12:16:43 Adult health examinat ion Completed 201411/21/2020 ROUTINE MEDICAL EXAM;Rec orded Elsewher e: No Locat ion: [facility] S ource: EHR Machine Crater sandro: N Rohitti ce ID: 0001 Yoan lable Time: 08:30:00 AM Roseanna Nathan MD [address], [place], [address], [place] [facility] 12:16:16 Pelvic and perineal pain [id number] Completed 201811/21/2020 Pelvic and perineal pain;Rec orded Elsewher e: No Locat ion: [facility] S ource: EHR Machine Crater sandro: N Practi ce ID: 0001 Yoan lable Time: 10:00:00 AM Roseanna Nathan MD [address], [place], [address], [facility] 1 12:16:29 Acute vaginiti s [id number] Completed 201711/21/2020 Acute vaginiti s;Record ed Elsewher e: No [facility]: EHR Machine Crater sandro: N Practi ce ID: 0001 Yoan lable Time: 03:45:00 PM Roseanna Nathan MD [address], [place], [address], [facility] 1 12:16:14 Cyst of ovary [id number] Completed 201411/21/2020 Ovarian cyst;Rec orded Elsewher e: No [facility]at [facility]: EHR Machine Crater sandro: N Rohitti ce ID: 0001 Yoan lable Time: 01:30:00 PM Roseanna Nathan MD [address], [place], [address], [facility] 1 12:16:25 Screenin g for malignan t neoplasm of rectum Completed 201711/21/2020 Encounte r for screenin g for malignan t neoplasm of rectum;R ecorded Elsewher e: No [facility]at [facility] S [facility]: EHR Machine Crater sandro: N Rohitti ce ID: 0001 Yoan lable Time: 09:00:00 AM Roseanna Nathan MD [address], [place], [address], [facility] 1 12:16:36 Vaginola bial hernia Completed 201711/21/2020 Other specifie d noninfla mmatory disorder s of vagina;R ecorded Elsewher e: No [facility]at ion: [facility] S ource: EHR Machine Crater sandro: N Rohitti ce ID: 0001 Yoan lable Time: 03:45:00 PM MD [address], [place], [address], [facility] 1 12:16:45 Carbuncl e [id number] Completed 201511/21/2020 Carbuncl e;Record ed Elsewher e: No Locat ion: [facility] S ource: EHR Machine Crater sandro: N Gilberto ce ID: 0001 Yoan lable Time: 09:30:00 AM Roseanna Nathan MD [address], [place], [address], [facility] 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 12:16:41 Pre-surg bing evaluati on Completed 201411/21/2020 Pre-oper ative examinat ion, unspecif ied;Justin rded Elsewher e: No Locat ion: [facility] S ource: EHR Machine Crater sandro: N Gilberto ce ID: 0001 Yoan lable Time: 10:30:00 AM MD [address], [place], [address], [facility] 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 [address] 14:43:[address] Concept Completed 201511/21/2020 Encntr for general adult medical exam w/o abnormal findings ;Recorde d Elsewher e: No Locat ion: [facility] S ource: EHR Machine Crater sandro: N Gilberto ce ID: 0001 Yoan lable Time: 09:30:00 AM Roseanna Nathan MD [address], [place], [address], [facility] 1 12:16:38 Finding of trunk structur e [id number] Completed 201611/21/2020 Intra-ab dominal and pelvic swelling , mass and lump, unspecif ied site;Rec orded Elsewher e: No Locat ion: [facility] S ource: EHR Machine Crater sandro: Zach Macias ce ID: 0001 Yoan lable Time: 10:15:00 AM Roseanna Nathan MD [address], [place], [address], [facility] 1 12:16:23 Screenin g for malignan t neoplasm of cervix Completed 201411/21/2020 Screenin g for malignan t neoplasm s of the cervix;R ecorded Elsewher e: No Locat ion: [facility] S ource: EHR Machine Crater sandro: Zach Macias ce ID: 0001 Yoan lable Time: 08:30:00 AM Roseanna Nathan MD [address], [place], [address], [facility] 1 12:16:34 Finding of trunk structur e [id number] Completed 201411/21/2020 Pelvic mass;Rec orded Elsewher e: No Locat ion: [facility] S ource: EHR Machine Crater sandro: Zach Macias ce ID: 0001 Yoan lable Time: 10:30:00 AM Roseanna Nathan MD [address], [place], [address], [facility] 12:16:27 Multiple sclerosi s [id number] Completed 202003/17/2022 [place] jeffery [facility] 2 17:00:22 Immunosu ppressiv e therapy Completed 202003/17/2022 PAP YEARLY [place] [facility] 2 17:00:22 History of endometr ial ablation [id number] 75339 Completed 202003/17/2022 [place] [facility] 2 17:00:22 Polyp of colon 39724167 Completed 202003/17/2022 [place] [facility] 2 17:00:22 Family history of cancer of colon [id number] Completed 202003/17/2022 supposed to do yearly colonsco py Lunal[place] [facility] 2 17:00:22 Problem Notes None recorded. Procedures Surgical History Date Name Laterality Status Provider Name and Address Organization Details Recorded Time 024 Date of Last Pap Smear completed Marjan Sky [facility] 04/18/2024 16:50:11 023 Date of Last Mammogram completed Nubia Sanders [facility] 04/03/2023 09:29:22 022 completed Marjan Sky [facility] 04/01/2022 14:28:17 022 Date of Last Colonoscopy completed Marjan Sky [facility] 04/01/2022 14:28:17 022 Colonoscopy completed Marjan Sky [facility] 04/01/2022 14:29:47 021 Thyroid Surgery completed [facility] 11/21/2020 12:11:55 015 laparoscopic salpingo-oophorect ja completed HARSH López [address], [place], [address], [place] [facility] 04/18/2024 11:20:[address] [facility] 11/21/2020 09:41:18 003 delivery completed [facility] 11/21/2020 09:40:22 003 Tubal Ligation completed , [facility] 11/21/2020 09:44:11 999 cholecystectomy completed Marjan Sky [facility] 02/22/2022 12:04:13 998 tonsilectomy/adeno ids completed [facility] 11/21/2020 09:43:55 996 delivery completed [facility] 11/21/2020 09:40:33 Imaging Results Imaging Date Name Status LastModified by Organization Details LastModified Time 04/21/2024 US, pelvis completed [email or web address] [place] [address], [place], [address], 04/21/2024 13:46:17 04/21/2024 US, transvaginal completed [email or web address] Lois reddy [address], [place], [address], 04/21/2024 13:46:36 04/21/2024 US, pelvis completed cyndy Baronee [address], [place], [address], 04/29/2024 09:31:03 07/06/2024 imaging/diagnost ic result active [address] [facility] [address], [place], [address], 07/06/2024 11:59:44 Procedure Notes None recorded. Medical Equipment None Reported. Allergies Allergen ID Allergen Name Allergen Category Reaction Reaction Severity Criticality Documentation Date Start Date Code Code System Note Provider Name and Address Organization Details Recorded Time 46662 glucose medicatio n Not available Not available Not available 04/13/2020 4850 RxNorm Comme nt: Locat ion: Sheila schulte [facility]; Marjan Sky [facility] 2 11:45:02 01271 honey bee venom environme nt Not available Not available Not available 04/13/2020 09832 7 RxNorm Comme nt: Locat ion: Sheila schulte [facility]; Not Available [facility] 0 14:20:30 91996 wheat gluten extract food Not available Not available Not available 04/13/2020 10480 81 RxNorm Comme nt: Locat ion: Sheila schulte [facility]; Not Available [facility] 0 14:20:30 Medications Name Sig Start Date Stop Date Status Note LastModified by Organization Details LastModified Time amoxicill in 500 mg capsule TAKE 1 CAPSULE BY MOUTH EVERY 8 HOURS 06/05 completed Not Available Not Available Not Available methocarb hosea 500 mg tablet take 2 tablet by oral route 4 times every day 02/15 completed Prescrib ed Elsewher e: Yes Loca tion: [facility] M odify By: [email or web address] Reddy ncounter DateTime : 12/07/19 15 08:30:00 AM Not [...] x 3 total doses. 11/21 completed Prescrib rena Yang e: No Locat ion: Lois reddy [facility] odify By: zoe hopper DateTime : 03/23/20 10:45:00 AM Not Available [...] Prescrib ed Elsewher e: Yes Loca tion: [facility] odify By: marcin oliver DateTime : 12/29/19 19 11:15:00 AM Not Available Not Available Not [...] Prescrib ed Elsewher e: Yes Loca tion: [facility] odify By: [email or web address] mars DateTime : 01/26/20 18 03:45:00 PM Not [...] to the affected area(s) 12/01 completed Prescrib rena Yang e: No Locat ion: Lois reddy [facility] M odify By: [email or web address] z Encoun ter DateTime [...] Elsewher e: Yes Loca tion: Lois reddy [facility] odify By: joseph Schmidt r DateTime : 12/07/19 15 08:30:00 AM Not Available Not Available Not Available biotin 5 mg tablet 01/25 completed Prescrib ed Elsewher e: Yes Loca tion: Lois reddy [facility] odify By: joseph Schmidt r DateTime : 12/07/19 15 08:30:00 AM Not Available Not Available Not Available Gablofen 10,000 mcg/20 mL (500 mcg/mL) intrathec al solution infuse by cont intrathe alona inf route (90 mcg/day) 02/15 completed Prescrib ed Elsewher e: Yes Loca tion: Lois reddy [facility] odify By: kirk tinocountmaricarmen DateTime : 01/26/20 18 03:45:00 PM Not Available Not Available Not Available Multi Vitamin 9 mg iron/15 mL oral liquid 01/25 completed Prescrib ed Elsewher e: Yes Loca tion: Lois reddy [facility] odify By: joseph Schmidt r DateTime : 12/07/19 15 08:30:00 AM Not Available Not Available Not Available Tecfidera 120 mg (14)-240 mg (46) capsule,d elayed release 12/02 completed Prescrib ed Elsewher e: Yes Loca tion: Lois reddy [facility] odify By: riley birch DateTime : 12/29/19 15 10:30:00 AM Not Available Not Available Not Available Ocrevus 30 mg/mL intraveno us solution infuse by intraven ous route every 6 months over at least (maximum infusion rate 200 mL/hr) 03/18 completed Prescrib ed Elsewher e: Yes Loca tion: Lois reddy [facility] odify By: kirk tinocountmaricarmen DateTime : 02/16/20 18 11:30:00 AM Not Available Not Available Not Available baclofen 5 mg tablet 04/01 completed Not Available Not Available Not Available Vitals Date Recorded Body height Body mass index (BMI) Body weight Systolic blood pressure Diastolic blood pressure Provider Name and Address Organization Details Last Updated DateTime 02/12/2024 165.1 cm 28.3 kg/m2 48441.7 g 128 mm[Hg] 84 mm[Hg] [facility] 4 14:51:00 Date Recorded Body height Body mass index (BMI) Body weight Systolic blood pressure Diastolic blood pressure Provider Name and Address Organization Details Last Updated DateTime 03/18/2024 165.1 cm 29.6 kg/m2 43778.44 g 135 mm[Hg] 83 mm[Hg] Nubia Sanders [facility] 4 10:09:32 Date Recorded Body height Body mass index (BMI) Body weight Systolic blood pressure Diastolic blood pressure Provider Name and Address Organization Details Last Updated DateTime 04/18/2024 165.1 cm 29.1 kg/m2 83807.66 g 129 mm[Hg] 82 mm[Hg] Marjan Sky [facility] 4 09:34:57 Date Recorded Body height Body mass index (BMI) Body weight Systolic blood pressure Diastolic blood pressure Provider Name and Address Organization Details Last Updated DateTime 04/28/2024 165.1 cm 29.8 kg/m2 67896.03 g 129 mm[Hg] 82 mm[Hg] Nubia Sanders [facility] 5 16:42:43 Social History Question Answer Notes LastModified by Organizat ion Details LastModified Time Tobacco Smoking Status Never Smoker Nubia Sanders [facility] 04/03/2023 09:26:07 Do You Have An Advance Directive? No [email or web address] Information n ot available 02/22/2022 What Is Your Level Of Alcohol Consumption? None Information not available 04/28/2024 Are You Blind Or Do You Have Difficulty Seeing? No [email or web address] Information n ot available 02/22/2022 What Is Your Level Of Caffeine Consumption? Moderate Information not available 04/28/2024 How Much Tobacco Do You Chew? None [email or web address] Information not available 04/01/2022 In The 14 Days Before Symptom Onset, Have You Had Close Contact With A Laboratory-confirm ed COVID-19 While That Case Was Ill? No [email or web address] Information n ot available 02/22/2022 In The 14 Days Before Symptom Onset, Have You Had Close Contact With A Person Who Is Under Investigation For COVID-19 While That Person Was Ill? No [email or web address] Information not available 02/22/2022 Have You Been To An Area Known To Be High Risk For COVID-19? No [email or web address] Information not available 02/22/2022 Are You Deaf Or Do You Have Serious Difficulty Hearing? No Information not available 02/22/2022 What Type Of Diet Are You Following? SPECIFIC [email or web address] Information n ot available 04/01/2022 What Is The Highest Grade Or Level Of School You Have Completed Or The Highest Degree You Have Received? 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 No [email or web address] Information not available 02/22/2022 Have You Ever Been Counseled For Unhealthy Alcohol Use? No Information not available 04/03/2023 Do You Use Protection During Sex? No [email or web address] Information not available 02/22/2022 Do You Use Your Seat Belt Or Car Seat Routinely? Yes [email or web address] Information not available 02/22/2022 Do You Have Smoke And Carbon Monoxide Detectors In Your Home? Yes [email or web address] Information not available 02/22/2022 How Much Tobacco Do You Smoke? No [email or web address] Information not available 02/22/2022 Do You Feel Stressed (tense, Restless, Nervous, Or Anxious, Or Unable To Sleep At Night)? [id number] Information not available 04/28/2024 Do You Use Any Illicit Or Recreational Drugs? No [email or web address] Information not available 02/22/2022 Do You Use Sunscreen Routinely? No Information not available 04/28/2024 Has Tobacco Cessation Counseling Been Provided? No Information not available 04/03/2023 Have You Used IV Drugs? No [email or web address] Information not available 02/22/2022 Do You Or Have You Ever Used Any Other Forms Of Tobacco Or Nicotine? No Information not available 04/03/2023 Sex: Unknown Functional Status Question Answer Note LastModified by Organizat ion Details LastModified Time Do you have difficulty walking or climbing stairs? No Information not available 04/03/2023 Are you able to walk? YESWOREST [email or web address] Information not available 02/22/2022 Are you able [...] SNOMED-CT Code Diagnosis ICD10 Code Diagnosis Note [id number] Roseanna Nathan MD [facility] [address],[place] [address] 11/21/2020 11:57:41 11/21/2020 12:45:54 Lesion of vulva 310665540 N90.89 [id number] Roseanna Nathan MD [facility] [address],[place] [address] 02/27/2021 14:06:32 02/27/2021 14:48:06 Immunosuppressive therapy 77223176 D84.9 Family his tory of cancer of colon 176638313 Z80.0 Polyp of colon 94216001 K63.5 [id number] Avelina Alexander [facility] [address],[place] [address] 02/22/2022 11:29:47 02/24/2022 16:47:16 Skin lesion 32438960 L98.9 Suspect HSV on exam in anal/recta [...] counseling and review of plan of care. [id number] Avelina Alexander [facility] [address],[place] [address] 04/01/2022 14:14:09 04/01/2022 15:21:24 Gynecologic examination 35361989 Z01.419 Suggested Calcium with Vitamin D 1200-1500m g daily. Patient advised to get an annual flu shot in the fall and she could obtain at [facility] or [facility] take care clinic. Also to obtain TDap [...] ordered Screening for malignant neoplasm of breast 372982355 Z12.39 Screening colonoscopy 44 0808571 Z12.11 OrderedCon tact to see where she wants to go. Herpes simplex 27954059 B00.9 Will contact us if neurologis t recommends /approves HSV suppressio n therapy? or other regimen for HSV so does not have an outbreakoc revus infusionsW ill hold off on Valtrex until hear from neurologis t [id number] Avelina Alexander , [facility] [address],[place] [address] 06/05/2022 16:44:51 06/05/2022 17:12:10 Urinary symptoms 704312393 R39.9 Suspect UTI on dip and subjective complaints .Rx sentCounse led on medication R/B's, Most common side effects, & use. All questions were answered to patient satisfacti on. Declined need std screen Time spent in visit is a total of 15 mins with at least 50% of visit consisting of counseling and review of plan of care. [id number] Elsy Auguste [facility] [address] [address] 07/29/2022 09:45:03 07/29/2022 15:07:38 Vaginitis 51192681 N76.0 suspect BVvaginiti s panel sentSTI endocervic al testing sentvulvar care guidelines discussedR x sent, R/B/A discussedR TC if symptoms persist past treatment Time spent in visit is a total of 18 mins with at least 50% of visit consisting of counseling and review of plan of care. [id number] Avelina Alexander , [facility] [address],[place] [address] 04/03/2023 09:18:09 04/07/2023 18:35:04 Gynecologic examination 19669464 Z01.419 Z11.51 Z11.3 Suggested Calcium with Vitamin D 1200-1500m g daily. Patient advised to get an annual flu shot in the fall and she could obtain at [facility] or [facility]. Also to obtain TDap vaccinatio n [...] Lab PCP/Specia listMammo ordered Screening mammography 24 245276 Z12.31 Herpes simplex 08566676 B00.9 Double during flare upsCan call if need Rx sent [id number] Nubia Sanders [facility] [address] [address] 12/11/2023 10:51:52 12/11/2023 11:46:12 Vaginitis 72333549 N76.0 Dysuria 40249316 R30.0 Urinary symptoms 8625136 08 R39.9 [id number] Ange Cheng [facility] [address],[place] [address] 01/01/2024 14:15:12 01/01/2024 15:13:31 Urinary symptoms 424828264 R39.9 [id number] Marjan Sky [facility] [address],[place] [address] 02/12/2024 13:53:51 02/12/2024 15:15:39 Burning sensation of vagina 258006006 R20.8 [id number] Jace Mcneil MD [facility] [address],[place] [address] 03/18/2024 09:32:12 03/18/2024 10:54:29 Urinary symptoms 566490388 R39.9 Cyst of ovary 40389611 N 83.209 Acute urin joel tract infection 395452394 N39.0 this patient is a 48-year-ol d [...] cyst that we agreed to follow-up on. [id number] HARSH López [facility] [address],[place] [address] 04/18/2024 08:56:04 04/18/2024 11:30:11 Gynecologic examination 19341512 Z01.419 WWEBC - BTLPap - done todaySTI screen - [...] questions have been answered. Pain in pelvis 52058280 R10.2 pelvic u/s orderedsus pect enlarged uterus on bi-manual examMD consult scheduled with Dr. Mcneil Time spent in visit is a total of 35 mins with at least 50% of visit consisting of counseling and review of plan of care. Urinary symptoms 3278809 08 R39.9 referral sentnumber given to ptdeclined UA today Screening for malignant neoplasm of breast 672314634 Z12.39 Venereal d isease screening 742916812 Z11.3 [id number] Ale [facility] [address],[facility] [place] [address] 04/21/2024 11:27:56 04/21/2024 12:03:32 Pain in pelvis 34323715 R10.2 [id number] Jace Mcneil MD [facility] [address],[facility] [place] [address] 04/28/2024 15:59:28 04/28/2024 17:16:14 Pain in pelvis 15985046 R10.2 This patient is a 48-year-ol d [...] follow up as needed. 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 Health Concerns Section Related Observation LastModified by Organization Detai ls LastModified Time None Recorded Concern Status LastModified by Organization Details LastModified Time None Recorded Advance Directives Directive N: Payers Encounter Date Sequence Insurance Name Policy Number Policy Gaines Covered Member ID Gaines Member ID Guarantor Name 02/12/2024 1 [facility] (MEDICAID HMO) [id number] Magy Pfleger [id number] Magy Pfleger 03/18/2024 1 [facility] (MEDICAID HMO) [id number] Magy Pfleger [id number] Magy Pfleger 04/18/2024 1 [facility] (MEDICAID HMO) [id number] Magy Pfleger [id number] Magy Pfleger 04/21/2024 1 [facility] (MEDICAID HMO) [id number] Magy Pfleger [id number] Magy Pfleger 04/28/2024 1 [facility] (MEDICAID HMO) [id number] Magy Pfleger [id number] Magy Pfleger Notes Date Note Type Note [...] refer to urology. Jace Mcneil MD [address], [place], [address], [facility] 03/18/2024 10:53:43 04/18/2024 text/html Annual GYNReport [...] cramping, bloating HARSH López [address], [place], [address], [facility] 04/18/2024 11:26:56 04/28/2024 text/html This patient [...] follow up as needed. 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 Jace Mcneil MD [address], [place], [address], [facility] 04/28/2024 17:10:17 OBGyn Episode Ob Episode Information Episode Created Date Number of Fetuses Patient Bloodtype Patient rh Status Prepregnancy Weight lbs Domestic Partner Domestic Partner Phone Father Name Epic Professional Status 11/22/19 21 1 CLOSED Fetus Data First Name Last Name Admitted to NICU Weight (g) Sex Living Outcome Pediatric Complications Fetus ID Race Codes Race Delivery Type 3656.85 8704 F Full Term [id number] Primary Juancarlos Calculation Initial Juancarlos Date Initial [...] Domestic Partner Domestic Partner Phone Father Name Epic Professional Status 11/22/19 21 1 CLOSED Fetus Data First Name Last Name Admitted to NICU Weight (g) Sex Living Outcome Pediatric Complications Fetus ID Race Codes Race Delivery Type 3316.66 4704 F Full Term [id number] Primary Juancarlos Calculation Initial Juancarlos Date Initial [...]
--- OUTSIDE RECORDS SUMMARY | 2024-07-06 11:04 | XMS_ITS | Clinical Summary ---
Author Organization [facility] Address [address] [place] [address] Phone Care Team Providers Care Sea Air Land Officer Name Role Phone MARYANA ANP-BC, FERNANDO L Unavailable [phone] SAMUEL DELGADILLO, ERASTO Unavailable [phone] CALDERON GODOY PA-C Primary Care Provider [phone] Reason for Visit and Chief Complaint RX ISSUE/REFILL Problems Includes: Problems addressed during this encounter and other active Problems All Visits Onset Date Resolved Date Provider Condition S tatus Dyslipidemia 03/12/2020 FERNANDO L MARYANA ANP-BC Active Last Documented On 0 11:12AM ; [facility] 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 03/12/2020 FERNANDO L MARYANA ANP-BC Active Last Documented On 0 11:12AM ; [facility] Depression Chronic 03/12/2020 FERNANDO L MARYANA ANP-BC Active Last Documented On 0 11:12AM ; [facility] Hypothyroidism 03/12/2020 FERNANDO L MARYANA ANP- BC Active Last Documented On 0 11:11AM ; [facility] Overweight 03/12/2020 FERNANDO L MARYANA ANP-BC A ctive Last Documented On 0 11:12AM ; [facility] Plan of Treatment No Plan of Treatment Recorded Assessments Includes: Assessments from this encounter No Assessments Recorded Medical Equipment - Implanted Devices Includes: Current Devices No Medical Equipment Recorded Medications Includes: Medications discussed during this encounter and other current Medications Current Medications (continue as prescribed) Acetaminophen-Codeine 300-60 MG Oral Tablet 10/14/2023 Provider: RHYS DONNELLY APRN-FPA, SENIOR MECHANICAL DESIGNER-BC Diagnosis: Multiple scleros is 1 every 6 hours as needed, max 4/day Last Documented On 4 10:25AM By RHYS DONNELLY [facility]- ; [facility] Baclofen 10 MG Oral Tablet 08/31/2023 Provider: Manav RHODES-BC Diagnosis: TAKE 1 TABLET BY MOUTH EVERY 6 HOURS NEEDED Last Documented On 4 8:18AM By FERNANDO MIJARES [facility] ; [facility] valACYclovir HCl 500 MG Oral Tablet 08/28/2023 Provi azucena: Diagnosis: Last Documented On 09/09/2023 8:33AM By Destiny SEGOVIA ; [facility] Levothyroxine Sodium 150 MCG Oral Tablet 05/18/2023 Provider: CALDERON GODOY PA-C Diagnosis: Last Documented On 06/16/2023 8:54AM By Destiny SEGOVIA ; [facility] Oyster Shell Calcium 500 MG Oral Tablet 01/02/2023 P rovider: CALDERON GODOY PA-C Diagnosis: Last Documented On 01/21/2023 8:49AM By Destiny SEGOVIA ; [facility] Naproxen Sodium ER 500 MG Oral Tablet Extended R elease 24 Hour 03/12/2020 Provider: Diagnosis: Last Documented On 3 1:26PM By RHYS DONNELLY [facility]- ; [facility] Ocrevus 300 MG/10ML Intravenous Solution 03/12/2020 Provider: Diagnosis: Last Documented On 3 1:26PM By RHYS DONNELLY [facility]- ; [facility] Medications Administered Includes: Administered Medications from this encounter No Administered Medications Recorded Results Includes: Results discussed during this encounter No Results Recorded For Specified Dates History of Present Illness Includes: History of Present Illness from this encounter No History of Present Illness Recorded Social History Description Last Updated Current smoker CANNIBIS 06/16/2023 Last Documented On 4 4:22PM ; [facility] Tobacco non-user 07/07/2022 Last Documented On 4 4:22PM ; [facility] Current nonsmoker 07/23/2020 Last Documented On 4 4:22PM ; [facility] Using marijuana 03/12/2020 Last Documented On 4 4:22PM ; [facility] Non-smoker 03/12/2020 Last Documented On 4 4:22PM ; [facility] No menarche yet 03/12/2020 Last Documented On 4 4:22PM ; [facility] Smoking Status Unknown Medical History Includes: Medical History addressed during this encounter Description Last Updated 1 miscarriage(s) 03/12/2020 Last Documented On 4 4:22PM ; [facility] Currently wearing eyeglasses 03/12/2020 Last Documented On 4 4:22PM ; [facility] Previously 2 time(s) 03/12/2020 Last Documented On 4 4:22PM ; [facility] Surgery , tonsilectomy, gallbla dder, apendix, left ovary removal 03/12/2020 Last Documented On 4 4:22PM ; [facility] reviewed and unchanged since last visit 03/12/2020 Last Documented On 4 4:22PM ; [facility] Reported dietary history 03/12/2020 Last Documented On 4 4:22PM ; [facility] Taking medication 03/12/2020 Last Documented On 4 4:22PM ; [facility] Taking vitamin supplements 03/12/2020 Last Documented On 4 4:22PM ; [facility] Family History Includes: Family History addressed [...] Active Last Documented On 4 8:34AM ; [facility] Encounters Encounter Provider Location Date Check-In Time Check-Out Time Diagnosis RX ISSUE/REFILL FERNANDO BERMUDEZ 08/05/2023 4:22PM 11:59PM Insurance Includes: Active Insurance Policies Plan Name Member ID Group # Subscriber Relationship Effect nba Dates 1 - [facility] [id number] DAPHNE NICOLE Self Clinical Notes Includes: Clinical Notes from this encounter * Progress note Date Encounter Last Documented by 08/05/2023 RX ISSUE/REFILL Last documented on 08/06/2023; 9:52 AM, FERNANDO MIJARES ANP-; [facility] Active Problems & Conditions [...] back to insurance to appeal. 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 Past Medical/Surgical History Reported: Surgery , tonsilectomy, [...]
--- OUTSIDE RECORDS SUMMARY | 2024-07-06 11:04 | XMS_ITS | Clinical Summary ---
Author Organization [facility] Address [address] [place] [address] Phone Care Team Providers Care Music Artist Name Role Phone MARYANA ANP-BC, FERNANDO L Unavailable [phone] SAMUEL DELGADILLO, ERASTO Unavailable [phone] CALDERON GODOY PA-C Primary Care Provider [phone] Reason for Visit and Chief Complaint RX ISSUE/REFILL Problems Includes: Problems addressed during this encounter and other active Problems All Visits Onset Date Resolved Date Provider Condition S tatus Dyslipidemia 03/12/2020 FERNANDO L MARYANA ANP-BC Active Last Documented On 0 11:12AM ; [facility] 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 03/12/2020 FERNANDO L MARYANA ANP-BC Active Last Documented On 0 11:12AM ; [facility] Depression Chronic 03/12/2020 FERNANDO L MARYANA ANP-BC Active Last Documented On 0 11:12AM ; [facility] Hypothyroidism 03/12/2020 FERNANDO L MARYANA ANP- BC Active Last Documented On 0 11:11AM ; [facility] Overweight 03/12/2020 FERNANDO L MARYANA ANP-BC A ctive Last Documented On 0 11:12AM ; [facility] Plan of Treatment No Plan [...] 6 hours as needed, max 4/day Pharmacy: [address], [address] - Last Documented On 4 10:25AM By RHYS HOLM ; [facility] Current Medications (continue as prescribed) Baclofen 10 MG Oral Tablet 08/31/2023 Provider: Manav BERMUDEZ Diagnosis: TAKE 1 TABLET BY MOUTH EVERY 6 HOURS NEEDED Last Documented On 4 8:18AM By FERNANDO BERMUDEZ ; [facility] valACYclovir HCl 500 MG Oral Tablet 08/28/2023 Provi azucena: Diagnosis: Last Documented On 09/09/2023 8:33AM By Destiny SEGOVIA ; [facility] Levothyroxine Sodium 150 MCG Oral Tablet 05/18/2023 Provider: CALDERON GODOY PA-C Diagnosis: Last Documented On 06/16/2023 8:54AM By Destiny SEGOVIA ; [facility] Oyster Shell Calcium 500 MG Oral Tablet 01/02/2023 P roazaliader: CALDERON GODOY PA-C Diagnosis: Last Documented On 01/21/2023 8:49AM By Destiny SEGOVIA ; [facility] Naproxen Sodium ER 500 MG Oral Tablet Extended R elease 24 Hour 03/12/2020 Provider: Diagnosis: Last Documented On 3 1:26PM By RHYS HOLM ; [facility] Ocrevus 300 MG/10ML Intravenous Solution 03/12/2020 Provider: Diagnosis: Last Documented On 3 1:26PM By RHYS HOLM ; [facility] Medications Administered Includes: Administered Medications from this encounter No Administered Medications Recorded Results Includes: Results discussed during this encounter No Results Recorded For Specified Dates History of Present Illness Includes: History of Present Illness from this encounter No History of Present Illness Recorded Social History Description Last Updated Current smoker CANNIBIS 06/16/2023 Last Documented On 4 9:33AM ; [facility] Tobacco non-user 07/07/2022 Last Documented On 4 9:33AM ; [facility] Current nonsmoker 07/23/2020 Last Documented On 4 9:33AM ; [facility] No consumption of alcohol 03/12/2020 Last Documented On 4 9:33AM ; [facility] No tobacco use 03/12/2020 Last Documented On 4 9:33AM ; [facility] Using marijuana 03/12/2020 Last Documented On 4 9:33AM ; [facility] Non-smoker 03/12/2020 Last Documented On 4 9:33AM ; [facility] No menarche yet 03/12/2020 Last Documented On 4 9:33AM ; [facility] A high-salt diet not from processed food s 03/12/2020 Last Documented On 4 9:33AM ; [facility] A high-sugar diet not including sweet sn acks 03/12/2020 Last Documented On 4 9:33AM ; [facility] Diet does not need elimination of junk f ood 03/12/2020 Last Documented On 4 9:33AM ; [facility] Diet does not need reduction of caloric intake 03/12/2020 Last Documented On 4 9:33AM ; [facility] Diet provides sufficient food variety Last Documented On 4 9:33AM ; [facility] Diet provides sufficient fruit 0 Last Documented On 4 9:33AM ; [facility] Diet provides sufficient vegetables 02/25 Last Documented On 4 9:33AM ; [facility] No high-fat diet 03/12/2020 Last Documented On 4 9:33AM ; [facility] Smoking Status Unknown Medical History Includes: Medical History addressed during this encounter Description Last Updated Denies a fear of falling. 09/09/2023 Last Documented On 4 9:33AM ; [facility] Has had no fall in the last 12 months. 0 09/09/2023 Last Documented On 4 9:33AM ; [facility] 1 miscarriage(s) 03/12/2020 Last Documented On 4 9:33AM ; [facility] Currently wearing eyeglasses 03/12/2020 Last Documented On 4 9:33AM ; [facility] Previously 2 time(s) 03/12/2020 Last Documented On 4 9:33AM ; [facility] Surgery , tonsilectomy, gallbla dder, apendix, left ovary removal 03/12/2020 Last Documented On 4 9:33AM ; [facility] reviewed and unchanged since last visit 03/12/2020 Last Documented On 4 9:33AM ; [facility] Current toilet training has been complet ed 03/12/2020 Last Documented On 4 9:33AM ; [facility] No previous psychiatric treatment 2019 Last Documented On 4 9:33AM ; [facility] Reported dietary history 03/12/2020 Last Documented On 4 9:33AM ; [facility] Taking medication 03/12/2020 Last Documented On 4 9:33AM ; [facility] Taking vitamin supplements 03/12/2020 Last Documented On 4 9:33AM ; [facility] Family History Includes: Family History addressed during this encounter Description Last Updated Family history reviewed - unchanged sin e last visit 03/12/2020 Last Documented On 4 9:33AM ; [facility] Family history unchanged 03/12/2020 Last Documented On 4 9:33AM ; [facility] Review of Systems Includes: Review [...] Active Last Documented On 4 8:34AM ; [facility] Encounters Encounter Provider Location Date Check-In Time Check-Out Time Diagnosis RX ISSUE/REFILL RHYS CHAVEZLP ENGINEERING GEOLOGIST-FPA, CORE MAN-BC 10/14/2023 9:33AM 11:59PM Insurance Includes: Active Insurance Policies Plan Name Member ID Group # Subscriber Relationship Effect nba Dates 1 - [facility] [id number] DAPHNE [place] MARYRENEA Self Clinical Notes Includes: Clinical Notes from this encounter * Progress note Date Encounter Last Documented by 10/14/2023 RX ISSUE/REFILL Last documented on 10/14/2023; 10:24 AM, RHYS CHAVEZLP ENGINEERING GEOLOGIST-FPA, CORE MAN-BC; [facility] Active Problems & Conditions - [...] call: ~Last Drug Screen: 09/08/2023 ~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 Current Medication - Acetaminophen-Codeine 300-60 MG Oral [...]
--- OUTSIDE RECORDS SUMMARY | 2024-07-06 11:04 | XMS_ITS | Clinical Summary ---
Author Organization [facility] Address [address] [place] [address] Care Team Providers Care Staff Interpreter Name Role Phone Unavailable Primary Care Provider [...]
--- OUTSIDE RECORDS SUMMARY | 2024-07-06 11:05 | XMS_ITS | Encounter Summary ---
Author Organization [facility] Address [address] [place] [address] Phone Care Team Providers Care Account Officer Name Role Phone Hayes Fontanez Primary Care Provider [phone] Encounter Details Date Type Department Care Team (Late st Contact Info) Description 07/01/2024 [facility]phone [facility] [place] [id number] John Zambrano MD [address] [address] Social History Tobacco Use Types Packs/Day Years Used Date Smoking Tobacco: Never Smokeless Tobacco: Never Alcohol Use Standard Drinks/Week Comments Not Currently 0 (1 standard drink = 0.6 oz pur e alcohol) Sexually Active Control Partners Comments Yes Comments No Sex and Gender Information Value Date Recorded Sex Assigned at Not on file Legal Sex Female 11:13 PM CDT Gender Identity Not on file Sexual Orientation Not on file documented as of this encounter Miscellaneous Notes * Telephone Encounter - Stephani Acevedo - 07/05/2024 2:18 PM CDT Us report in media, waiting for disk, * Telephone Encounter - Stephani Acevedo - 07/05/2024 10:21 AM CDT Cd and report requested. * Telephone Encounter - John Zambrano MD - 07/01/2024 3:50 PM CST Patient has CT at outside facility, can you please let the CT sent to me from [place]. Report and imaging would be nice. 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
--- OUTSIDE RECORDS SUMMARY | 2024-07-06 11:05 | XMS_ITS | Referral Summary ---
Author Organization [facility] Address [address] [place] [address] Care Team Providers Care Library Information Technician Name Role Phone Hayes Fontanez Primary Care Provider [phone] Cj Ross MD Unavailable [phone] Allergies Active Allergy Reactions Criticality Noted Date Comments Gluten Unknown 12/02/2010 Other Other (See comments) High 01/04/2019 Bee venom, also ALL SSRIs Tramadol Other (See comments) Low 01/18/2019 Tramadol could trigger PML Venom-Honey Bee Unknown 12/02/2010 Medications b complex vitamins capsule Active omega 3-tqj-lqt-fish oil 100-160-1,000 mg capsule Active multivitamin tabletIndicatio [...] on file Legal Sex Female 2:54 PM CERTIFIED PROSTHETIST Gender Identity Female 10/25/2020 2:44 PM CDT [...] Plan of Treatment Not on file Insurance [facility] Care Teams Library Information Technician Relationship Specialty Start Date End Date Hayes Fontanez PA [address] [place] [address] PCP - General 11/28/16 Cj Ross MD [address] [place] [address] Neurology 06/11/21
--- OUTSIDE RECORDS SUMMARY | 2024-07-06 11:05 | XMS_ITS ---
Care Plan - [facility] Created on: July 06, 2024 DAPHNE NICOLE : 1975 Sex: Female Author Organization [facility] Address [address] [place] [address] Phone Care Team Providers Care Legal Billing Analyst Name Role Phone MARYANA BERMUDEZ, FERNANDO Urena Unavailable [phone] SAMUEL DELGADILLO, ERASTO Unavailable [phone] WALT T[place], CALDERON Primary Care Provider [phone]
--- OUTSIDE RECORDS SUMMARY | 2024-07-06 11:05 | XMS_ITS ---
Author Organization [facility] Address [address] [place] [address] Phone Care Team Providers Care Ac/Dc Rewinder Name Role Phone MARYANA ANP-BC, FERNANDO L Unavailable [phone] SAMUEL DELGADILLO, ERASTO Unavailable [phone] CALDERON GODOY PA-C Primary Care Provider [phone] Problems Includes: Active, inactive, and resolved Problems All Visits Onset Date Resolved Date Provider Condition S tatus Dyslipidemia 03/12/2020 FERANNDO L MARYANA ANP-BC Active Last Documented On 0 11:12AM ; [facility] 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 03/12/2020 FERNANDO L MARYANA ANP-BC Active Last Documented On 0 11:12AM ; [facility] Depression Chronic 03/12/2020 FERNANDO L MARYANA ANP-BC Active Last Documented On 0 11:12AM ; [facility] Hypothyroidism 03/12/2020 FERNANDO L MARYANA ANP- BC Active Last Documented On 0 11:11AM ; [facility] Overweight 03/12/2020 FERNANDO L MARYANA ANP-BC A ctive Last Documented On 0 11:12AM ; [facility] Plan of Treatment Education and Decision Aids were provided during visit for: Pill Count: ten TYLENOL #4 Last Documented On 4 8:51AM ; [facility] Pill Count: 26 TYLENOL #4 Last Documented On 4 8:35AM ; [facility] Pill Count: 0 TYLENOL #4 Last Documented On 4 8:55AM ; [facility] Pill Count: 94 TYLENOL #4 Last Documented On 3 8:52AM ; [facility] Pill Count: 102 TYLENOL #4 Last Documented On 3 8:48AM ; [facility] Pill Count: 30 TYLENOL #4 Last Documented On 3 8:35AM ; [facility] Pill Count: six TYLENOL #4 Last Documented On 3 8:55AM ; [facility] Pill Count: 16 HYDROCODONE Last Documented On 3 8:55AM ; [facility] Pill Count: 55 TYLENOL #4 Last Documented On 3 9:06AM ; [facility] Pill Count: 68 TYLENOL #4 Last Documented On 2 9:37AM ; [facility] Pill Count: 40 TYLENOL #4 Last Documented On 2 9:56AM ; [facility] Pill Count: 33 TYLENOL #4 Last Documented On 2 10:49AM ; [facility] Pill Count: 26 TYLENOL #4 Last Documented On 2 8:47AM ; [facility] Pill Count: eight 7TYLENOL # 4 Last Documented On 2 9:23AM ; [facility] Pill Count: 41 TYLENOL 4 Last Documented On 1 8:51AM ; [facility] Pill Count: seven 7YLENOL #3 Last Documented On 1 2:03PM ; [facility] Pill Count: 70 Appropriate Last Documented On 1 1:11PM ; [facility] Pill Count: Patient did not bring pain medication to appointment for pill count, per policy. Advised in order to continue to safely prescribe opioids, medication must be brought to each appointment Last Documented On 1 3:46PM ; [facility] Pill Count: Patient does not have pills today but just got them filled 10/03/20 Last Documented On 1 3:46PM ; [facility] Pill Count: 40 Last Documented On 1 10:13AM ; [facility] Assessments Includes: Assessments for all patient encounters Findings Encounter Date Chronic pain syndrome URINE RECHECK with RHYS CHAVEZLP MANAGER [employer]ING-FPA, WEEKDAY BABYSITTER-BC 10/14/2023 Last Documented On 4 9:22AM ; [facility] manager terminal use of opiate analgesic URINE RECHECK with RHYS Trevino CONY MANAGER [employer], WEEKDAY BABYSITTER-BC 10/14/2023 Last Documented On 4 9:22AM ; [facility] 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 URINE RECHECK with RHYS CHAVEZLP MANAGER [employer]ING[employer], WEEKDAY BABYSITTER-BC 10/14/2023 Last Documented On 4 9:22AM ; [facility] Chronic pain syndrome PAIN MANAGEMENT FO LLOW UP with FERNANDO L MARYANA ANP-BC 09/09/2023 Last Documented On 4 9:15AM ; [facility] manager terminal use of opiate analgesic PAIN M ANAGEMENT FOLLOW UP with FERNANDO L MARYANA ANP-BC 09/09/2023 Last Documented On 4 9:15AM ; [facility] 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 PAIN MANAGEMENT FOLLOW UP with FERNANDO L MARYANA ANP-BC 09/09/2023 Last Documented On 4 9:15AM ; [facility] Chronic pain syndrome PAIN MANAGEMENT FO LLOW UP with FERNANDO L MARYANA ANP-BC 06/16/2023 Last Documented On 4 9:11AM ; [facility] intermediate use of opiate analgesic PAIN M ANAGEMENT FOLLOW UP with FERNANDO L MARYANA ANP-BC 06/16/2023 Last Documented On 4 9:11AM ; [facility] 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 PAIN MANAGEMENT FOLLOW UP with FERNANDO L MARYANA ANP-BC 01/21/2023 Last Documented On 3 9:16AM ; [facility] Chronic pain syndrome PAIN MANAGEMENT FO LLOW UP with FERNANDO L MARYANA ANP-BC 10/06/2022 Last Documented On 3 8:58AM ; [facility] manager terminal use of opiate analgesic PAIN M ANAGEMENT FOLLOW UP with FERNANDO L MARYANA ANP-BC 10/06/2022 Last Documented On 3 8:58AM ; [facility] 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 PAIN MANAGEMENT FOLLOW UP with FERNANDO L MARYANA ANP-BC 10/06/2022 Last Documented On 3 8:58AM ; [facility] Chronic pain syndrome PAIN MANAGEMENT FO LLOW UP with FERNANDO L MARYANA ANP-BC 07/07/2022 Last Documented On 3 9:22AM ; [facility] intermediate use of opiate analgesic PAIN M ANAGEMENT FOLLOW UP with FERNANDO L MARYANA ANP-BC 07/07/2022 Last Documented On 3 9:22AM ; [facility] 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 PAIN MANAGEMENT FOLLOW UP with FERNANDO L MARYANA ANP-BC 07/07/2022 Last Documented On 3 9:22AM ; [facility] Chronic pain syndrome PAIN MANAGEMENT FO LLOW UP with RHYS WELDON MANAGER [employer]ING-FPA, WEEKDAY BABYSITTER-BC 06/02/2022 Last Documented On 3 1:27PM ; [facility] intermediate use of opiate analgesic PAIN M ANAGEMENT FOLLOW UP with RHYS Trevino CONY MANAGER [employer], WEEKDAY BABYSITTER-BC 06/02/2022 Last Documented On 3 1:27PM ; [facility] 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 PAIN MANAGEMENT FOLLOW UP with RHYS Trevino CONY MANAGER [employer], WEEKDAY BABYSITTER-BC 06/02/2022 Last Documented On 3 1:27PM ; [facility] Chronic pain syndrome PAIN MANAGEMENT FO LLOW UP with FERNANDO L MARYANA ANP-BC 03/18/2022 Last Documented On 2 10:26AM ; [facility] intermediate use of opiate analgesic PAIN M ANAGEMENT FOLLOW UP with FERNANDO L MARYANA ANP-BC 03/18/2022 Last Documented On 2 10:26AM ; [facility] 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 PAIN MANAGEMENT FOLLOW UP with FERNANDO L MARYANA ANP-BC 03/18/2022 Last Documented On 2 10:26AM ; [facility] Chronic pain syndrome PAIN MANAGEMENT FO LLOW UP with FERNANDO L MARYANA ANP-BC 12/16/2021 Last Documented On 2 1:17PM ; [facility] intermediate use of opiate analgesic PAIN M ANAGEMENT FOLLOW UP with FERNANDO L MARYANA ANP-BC 12/16/2021 Last Documented On 2 1:17PM ; [facility] 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 PAIN MANAGEMENT FOLLOW UP with FERNANDO L MARYANA ANP-BC 12/16/2021 Last Documented On 2 1:17PM ; [facility] Chronic pain syndrome PAIN MANAGEMENT FO LLOW UP with FERNANDO L MARYANA ANP-BC 09/10/2021 Last Documented On 2 11:08AM ; [facility] manager terminal use of opiate analgesic PAIN M ANAGEMENT FOLLOW UP with FERNANDO L MARYANA ANP-BC 09/10/2021 Last Documented On 2 11:08AM ; [facility] 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 PAIN MANAGEMENT FOLLOW UP with FERNANDO L MARYANA ANP-BC 09/10/2021 Last Documented On 2 11:08AM ; [facility] Chronic pain syndrome PAIN MANAGEMENT FO LLOW UP with FERNANDO L MARYANA ANP-BC 07/05/2021 Last Documented On 2 3:04PM ; [facility] manager terminal use of opiate analgesic PAIN M ANAGEMENT FOLLOW UP with FERNANDO L MARYANA ANP-BC 07/05/2021 Last Documented On 2 3:04PM ; [facility] 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 PAIN MANAGEMENT FOLLOW UP with FERNANDO L MARYANA ANP-BC 07/05/2021 Last Documented On 2 3:04PM ; [facility] Chronic pain syndrome PAIN MANAGEMENT FO LLOW UP with FERNANDO L MARYANA ANP-BC 05/09/2021 Last Documented On 2 9:23AM ; [facility] intermediate use of opiate analgesic PAIN M ANAGEMENT FOLLOW UP with FERNANDO L MARYANA ANP-BC 05/09/2021 Last Documented On 2 9:23AM ; [facility] 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 PAIN MANAGEMENT FOLLOW UP with FERNANDO L MARYANA ANP-BC 05/09/2021 Last Documented On 2 9:23AM ; [facility] Chronic pain syndrome PAIN MANAGEMENT FO LLOW UP with FERNANDO L MARYANA ANP-BC 03/04/2021 Last Documented On 2 9:35AM ; [facility] intermediate use of opiate analgesic PAIN M ANAGEMENT FOLLOW UP with FERNANDO L MARYANA ANP-BC 03/04/2021 Last Documented On 2 9:35AM ; [facility] 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 PAIN MANAGEMENT FOLLOW UP with FERNANDO L MARYANA ANP-BC 03/04/2021 Last Documented On 2 9:35AM ; [facility] Chronic pain syndrome PAIN MANAGEMENT FO LLOW UP with FERNANDO L MARYANA ANP-BC 12/17/2020 Last Documented On 1 1:11PM ; [facility] intermediate use of opiate analgesic PAIN M ANAGEMENT FOLLOW UP with FERNANDO L MARYANA ANP-BC 12/17/2020 Last Documented On 1 1:11PM ; [facility] Lumbago PAIN MANAGEMENT FOLLOW UP with T LA L MARYANA ANP-BC 12/17/2020 Last Documented On 1 1:11PM ; [facility] 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 PAIN MANAGEMENT FOLLOW UP with FERNANDO L MARYANA ANP- 12/17/2020 Last Documented On 1 1:11PM ; [facility] Chronic pain syndrome PAIN MANAGEMENT FO LLOW UP with FERNANDO L MARYANA ANP- 10/09/2020 Last Documented On 1 4:30PM ; [facility] intermediate use of opiate analgesic PAIN M ANAGEMENT FOLLOW UP with FERNANDO L MARYANA [facility]- 10/09/2020 Last Documented On 1 4:30PM ; [facility] Lumbago PAIN MANAGEMENT FOLLOW UP with T LA L MARYANA ANP- 10/09/2020 Last Documented On 1 4:30PM ; [facility] 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 PAIN MANAGEMENT FOLLOW UP with FERNANDO L MARYANA ANP- 10/09/2020 Last Documented On 1 4:30PM ; [facility] Chronic pain syndrome FOLLOW UP with FERNANDO L BL EVINS ANP- 07/23/2020 Last Documented On 1 12:26PM ; [facility] intermediate use of opiate analgesic FOLLOW UP with FERNANDO L MARYANA ANP- 07/23/2020 Last Documented On 1 12:26PM ; [facility] Lumbago FOLLOW UP with FERNANDO L MARYANA ANP-BC 07/23/2020 Last Documented On 1 12:26PM ; [facility] 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 04/13/2020 Last Documented On 0 3:05PM ; [facility] manager terminal use of opiate analgesic PAIN M ANAGEMENT FOLLOW UP with FERNANDO HARVEYVINS [facility] 04/13/2020 Last Documented On 0 3:05PM ; [facility] Lumbago PAIN MANAGEMENT FOLLOW UP with T LA Urena MARYANA 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 04/13/2020 Last Documented On 0 3:05PM ; [facility] Chronic pain syndrome PAIN MANAGEMENT NE W CONSULT with FERNANDO HARVEYVINS [facility] 03/12/2020 Last Documented On 0 2:57PM ; [facility] intermediate use of opiate analgesic PAIN M ANAGEMENT NEW CONSULT with FERNANDO Ayanna MARYANA [facility] 03/12/2020 Last Documented On 0 2:57PM ; [facility] Lumbago PAIN MANAGEMENT NEW CONSULT with FERNANDOBOB HARVEYVINS 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 03/12/2020 Last Documented On 0 2:57PM ; [facility] Instructions Includes: Instructions for all patient encounters Education and Decision Aids were provided during visit for: Pill Count: ten TYLENOL #4 Last Documented On 4 8:51AM ; [facility] Pill Count: 26 TYLENOL #4 Last Documented On 4 8:35AM ; [facility] Pill Count: 0 TYLENOL #4 Last Documented On 4 8:55AM ; [facility] Pill Count: 94 TYLENOL #4 Last Documented On 3 8:52AM ; [facility] Pill Count: 102 TYLENOL #4 Last Documented On 3 8:48AM ; [facility] Pill Count: 30 TYLENOL #4 Last Documented On 3 8:35AM ; [facility] Pill Count: six TYLENOL #4 Last Documented On 3 8:55AM ; [facility] Pill Count: 16 HYDROCODONE Last Documented On 3 8:55AM ; [facility] Pill Count: 55 TYLENOL #4 Last Documented On 3 9:06AM ; [facility] Pill Count: 68 TYLENOL #4 Last Documented On 2 9:37AM ; [facility] Pill Count: 40 TYLENOL #4 Last Documented On 2 9:56AM ; [facility] Pill Count: 33 TYLENOL #4 Last Documented On 2 10:49AM ; [facility] Pill Count: 26 TYLENOL #4 Last Documented On 2 8:47AM ; [facility] Pill Count: eight 7TYLENOL # 4 Last Documented On 2 9:23AM ; [facility] Pill Count: 41 TYLENOL 4 Last Documented On 1 8:51AM ; [facility] Pill Count: seven 7YLENOL #3 Last Documented On 1 2:03PM ; [facility] Pill Count: 70 Appropriate Last Documented On 1 1:11PM ; [facility] Pill Count: Patient did not bring pain medication to appointment for pill count, per policy. Advised in order to continue to safely prescribe opioids, medication must be brought to each appointment Last Documented On 1 3:46PM ; [facility] Pill Count: Patient does not have pills today but just got them filled 10/03/20 Last Documented On 1 3:46PM ; [facility] Pill Count: 40 Last Documented On 1 10:13AM ; [facility] Medical Equipment - Implanted Devices Includes: Current and historical Devices No Medical Equipment Recorded Medications Includes: Current and historical Medications Current Medications (continue as prescribed) Acetaminophen-Codeine 300-60 MG Oral Tablet 10/14/2023 Provider: RHYS WELDON MANAGER [employer], WEEKDAY BABYSITTER-BC Diagnosis: Multiple scleros is 1 every 6 hours as needed, max 4/day Last Documented On 4 10:25AM By RHYS BACH ; [facility] Baclofen 10 MG Oral Tablet 08/31/2023 Provider: Manav BERMUDEZ Diagnosis: TAKE 1 TABLET BY MOUTH EVERY 6 HOURS NEEDED Last Documented On 4 8:18AM By FERNANDO BROWN ; [facility] valACYclovir HCl 500 MG Oral Tablet 08/28/2023 Provi azucena: Diagnosis: Last Documented On 09/09/2023 8:33AM By Destiny SEGOVIA ; [facility] Levothyroxine Sodium 150 MCG Oral Tablet 05/18/2023 Provider: CALDERON GODOY PA-C Diagnosis: Last Documented On 06/16/2023 8:54AM By Destiny SEGOVIA ; [facility] Oyster Shell Calcium 500 MG Oral Tablet 01/02/2023 P rovider: CALDERON GODOY PA-C Diagnosis: Last Documented On 01/21/2023 8:49AM By Destiny SEGOVIA ; [facility] Naproxen Sodium ER 500 MG Oral Tablet Extended R elease 24 Hour 03/12/2020 Provider: Diagnosis: Last Documented On 3 1:26PM By RHYS HOLM ; [facility] Ocrevus 300 MG/10ML Intravenous Solution 03/12/2020 Provider: Diagnosis: Last Documented On 3 1:26PM By RHYS HOLM ; [facility] Past Medications on file Acetaminophen-Codeine 300-60 MG Oral Tablet 09/09/2023 - 10/14/2023 Provider: FERNANDO BROWN Diagnosis: Multiple scleros is 1 every 6 hours as needed, max 4/daystart 09/15 Last Documented On 4 10:24AM By RHYS HOLM ; [facility] Acetaminophen-Codeine 300-60 MG Oral Tablet 08/13/2023 - 09/09/2023 Provider: FERNANDO BERMUDEZ Diagnosis: Multiple scleros is 1 every 6 hours as needed, max 4/daystart 08/16 Last Documented On 4 8:53AM By FERNANDO BROWN ; [facility] Baclofen 10 MG Oral Tablet 07/27/2023 - 09/09/2023 Provider: FERNANDO BROWN Diagnosis: Multiple scleros is TAKE 1 TABLET BY MOUTH EVERY 6 HOURS NEEDED Last Documented On 09/09/2023 8:33AM By Destiny SEGOVIA ; [facility] Acetaminophen-Codeine 300-60 MG Oral Tablet 07/14/2023 - 08/13/2023 Provider: FERNANDO BROWN Diagnosis: Multiple scleros is 1 every 6 hours as needed, max 4/day Last Documented On 4 10:43AM By FERNANDO BROWN ; [facility] Acetaminophen-Codeine 300-60 MG Oral Tablet 06/16/2023 - 07/14/2023 Provider: FERNNADO BROWN Diagnosis: Multiple scleros is 1 every 6 hours as needed, max 4/daystart 05/17 Last Documented On 4 12:24PM By FERNANDO BROWN ; [facility] Acetaminophen-Codeine 300-60 MG Oral Tablet 05/12/2023 - 06/16/2023 Provider: FERNANDO BROWN Diagnosis: Multiple scleros is 1 every 6 hours as needed, max 4/daystart 05/17 Last Documented On 4 9:10AM By FERNANDO BROWN ; [facility] Acetaminophen-Codeine 300-60 MG Oral Tablet 04/14/2023 - 05/12/2023 Provider: FERNANDO BROWN Diagnosis: Multiple scleros is 1 every 6 hours as needed, max 4/day Last Documented On 4 2:28PM By FERNANDO BROWN ; [facility] Baclofen 10 MG Oral Tablet 03/25/2023 - 07/27/2023 Provider: FERNANDO BROWN Diagnosis: Multiple scleros is TAKE 1 TABLET BY MOUTH EVERY 6 HOURS NEEDED Last Documented On 4 5:18PM By FERNANDO BROWN ; [facility] Acetaminophen-Codeine 300-60 MG Oral Tablet 03/17/2023 - 04/14/2023 Provider: FERNANDO BERMUDEZ Diagnosis: Multiple scleros is 1 every 6 hours as needed, max 4/day Last Documented On 3 3:53PM By FERNANDO BERMUDEZ ; [facility] Acetaminophen-Codeine 300-60 MG Oral Tablet 02/11/2023 - 03/16/2023 Provider: FERNANDO BERMUDEZ Diagnosis: Multiple scleros is 1 every 6 hours as needed, max 4/day Last Documented On 3 9:24AM By FERNANDO BROWN ; [facility] Acetaminophen-Codeine 300-60 MG Oral Tablet 01/15/2023 - 02/11/2023 Provider: FERNANDO BERMUDEZ Diagnosis: Multiple scleros is 1 every 6 hours as needed, max 4/day Last Documented On 3 10:54AM By FERNANDO BERMUDEZ ; [facility] valACYclovir HCl 500 MG Oral Tablet 01/08/2023 - 09/08 Provider: Diagnosis: Last Documented On 09/09/2023 8:34AM By Destiny SEGOVIA ; [facility] Acetaminophen-Codeine 300-60 MG Oral Tablet 12/16/2022 - 01/15/2023 Provider: FERNANDO BERMUDEZ Diagnosis: Multiple scleros is 1 every 6 hours as needed, max 4/day Last Documented On 3 2:21PM By FERNANDO BERMUDEZ ; [facility] Baclofen 10 MG Oral Tablet 12/02/2022 - 03/25/2023 Provider: FERNANDO BERMUDEZ Diagnosis: Multiple scleros is TAKE 1 TABLET BY MOUTH EVERY 6 HOURS NEEDED Last Documented On 3 9:00AM By FERNANDO BERMUDEZ ; [facility] Acetaminophen-Codeine 300-60 MG Oral Tablet 11/06/2022 - 12/16/2022 Provider: FERNANDO BERMUDEZ Diagnosis: Multiple scleros is 1 every 6 hours as needed, max 4/day Last Documented On 3 2:36PM By FERNANDO BERMUDEZ ; [facility] Acetaminophen-Codeine 300-60 MG Oral Tablet 10/06/2022 - 11/06/2022 Provider: FERNANDO BERMUDEZ Diagnosis: Multiple scleros is 1 every 6 hours as needed, max 4/day Last Documented On 3 2:13PM By FERNANDO BROWN ; [facility] Acetaminophen-Codeine 300-60 MG Oral Tablet 09/11/2022 - 10/06/2022 Provider: FERNANDO BROWN Diagnosis: Multiple scleros is 1 every 6 hours as needed, max 4/day Last Documented On 3 8:57AM By FERNANDO BROWN ; [facility] Baclofen 10 MG Oral Tablet 09/08/2022 - 12/02/2022 Provider: FERNANDO BROWN Diagnosis: Multiple scleros is TAKE 1 TABLET BY MOUTH EVERY 6 HOURS NEEDED Last Documented On 3 2:17PM By FERNANDO BROWN ; [facility] Acetaminophen-Codeine 300-60 MG Oral Tablet 08/11/2022 - 09/10/2022 Provider: FERNANDO BROWN Diagnosis: Multiple scleros is 1 every 6 hours as needed, max 4/day Last Documented On 3 8:35AM By FERNANDO BROWN ; [facility] Acetaminophen-Codeine 300-60 MG Oral Tablet 07/07/2022 - 08/11/2022 Provider: FERNANDO BERMUDEZ Diagnosis: Multiple scleros is 1 every 6 hours as needed, max 4/day Last Documented On 3 9:06AM By FERNANDO BROWN ; [facility] HYDROcodone-Acetaminophen 5- 325 MG Oral Tablet 06/18/2022 - 07/07/2022 Provider: RHYS WELDON MANAGER [employer], WEEKDAY BABYSITTER-BC Diagnosis: One tablet every 6-8 hours for severe pain, max 3/day Last Documented On 3 9:18AM By FERNANDO BERMUDEZ ; [facility] Acetaminophen-Codeine 300-60 MG Oral Tablet 06/18/2022 - 07/07/2022 Provider: RHYS [facility] Diagnosis: Multiple scleros is 1 every 6 hours as needed, max 4/day Last Documented On 3 9:22AM By [facility] ; [facility] Baclofen 10 MG Oral Tablet 06/02/2022 - 09/08/2022 Provider: RHYS TEMPLE [facility] Diagnosis: Multiple scleros is TAKE 1 TABLET BY MOUTH EVERY 6 HOURS NEEDED Last Documented On 3 1:11PM By FER[facility]NDO [facility] ; [facility] Acetaminophen-Codeine 300-60 MG Oral Tablet 05/16/2022 - 06/18/2022 Provider: RHYS TMEPLE [facility] Diagnosis: Multiple scleros is 1 every 6 hours as needed Last Documented On 3 9:25AM By [facility] ; [facility] Acetaminophen-Codeine 300-60 MG Oral Tablet 04/07/2022 - 05/16/2022 Provider: FERNANDO BROWN Diagnosis: Multiple scleros is 1 every 6 hours as needed Last Documented On 3 4:24PM By RHYS WELDON [facility] ; [facility] Acetaminophen-Codeine 300-60 MG Oral Tablet 03/04/2022 - 04/04/2022 Provider: FERNANDO BERMUDEZ Diagnosis: Multiple scleros is 1 po QID prn Last Documented On 2 9:23AM By [facility]ERNAND[facility] ; [facility] Baclofen 10 MG Oral Tablet 03/04/2022 - 06/02/2022 Provider: FERNANDO BERMUDEZ Diagnosis: Multiple scleros is TAKE 1 TABLET BY MOUTH EVERY 6 HOURS NEEDED Last Documented On 3 1:26PM By [facility] ; [facility] Acetaminophen-Codeine 300-60 MG Oral Tablet 01/29/2022 - 03/03/2022 Provider: FERNANDO RHODESCARMELLA Diagnosis: Multiple scleros is 1 po QID prn Last Documented On 2 8:21AM By FERNANDO BROWN ; [facility] Baclofen 10 MG Oral Tablet 01/29/2022 - 03/04/2022 Provider: FERNANDO BERMUDEZ Diagnosis: Multiple scleros is TAKE 1 TABLET BY MOUTH EVERY 6 HOURS NEEDED Last Documented On 2 2:33PM By FERNANDO BROWN ; [facility] Acetaminophen-Codeine 300-60 MG Oral Tablet 12/16/2021 - 01/29/2022 Provider: FERNANDO BERMUDEZ Diagnosis: Multiple scleros is 1 po QID prn Last Documented On 2 1:58PM By FERNANDO BERMUDEZ ; [facility] Acetaminophen-Codeine 300-60 MG Oral Tablet 11/21/2021 - 12/16/2021 Provider: FERNANDO BERMUDEZ Diagnosis: Multiple scleros is 1 po QID prn Last Documented On 2 10:20AM By FERNANDO BROWN ; [facility] Acetaminophen-Codeine 300-60 MG Oral Tablet 10/18/2021 - 11/21/2021 Provider: FERNANDO BERMUDEZ Diagnosis: Multiple scleros is 1 po QID prn Last Documented On 2 2:51PM By FERNANDO BERMUDEZ ; [facility] Acetaminophen-Codeine 300-60 MG Oral Tablet 09/16/2021 - 10/17/2021 Provider: FERNANDO BERMUDEZ Diagnosis: Multiple scleros is 1 po QID prn Last Documented On 2 11:04AM By FERNANDO BERMUDEZ ; [facility] Acetaminophen-Codeine 300-60 MG Oral Tablet 08/19/2021 - 09/16/2021 Provider: FERNANDO BERMUDEZ Diagnosis: Multiple scleros is 1 po QID prn Last Documented On 2 3:39PM By FERNANDO BERMUDEZ ; [facility] Baclofen 10 MG Oral Tablet 07/29/2021 - 01/29/2022 Provider: FERNANDO BERMUDEZ Diagnosis: Multiple scleros is TAKE 1 TABLET BY MOUTH EVERY 6 HOURS NEEDED Last Documented On 2 8:58AM By FERNANDO BERMUDEZ ; [facility] Acetaminophen-Codeine 300-60 MG Oral Tablet 07/05/2021 - 08/19/2021 Provider: FERNANDO BERMUDEZ Diagnosis: Multiple scleros is 1 po QID prn Last Documented On 2 4:38PM By FERNANDO BERMUDEZ ; [facility] Baclofen 10 MG Oral Tablet 06/27/2021 - 07/29/2021 Provider: FERNANDO BERMUDEZ Diagnosis: Multiple scleros is TAKE 1 TABLET BY MOUTH EVERY 6 HOURS NEEDED Last Documented On 2 11:37AM By FERNANDO BERMUDEZ ; [facility] Acetaminophen-Codeine 300-60 MG Oral Tablet 06/11/2021 - 07/05/2021 Provider: FERNANDO BERMUDEZ Diagnosis: Chronic pain syndrome 1 po QID prn Last Documented On 2 9:09AM By FERNANDO BERMUDEZ ; [facility] Acetaminophen-Codeine 300-60 MG Oral Tablet 05/09/2021 - 06/11/2021 Provider: FERNANDO BERMUDEZ Diagnosis: Chronic pain syndrome 1 po QID prn Last Documented On 2 2:44PM By FERNANDO BERMUDEZ ; [facility] Acetaminophen-Codeine 300-60 MG Oral Tablet 04/09/2021 - 05/09/2021 Provider: FERNANDO BERMUDEZ Diagnosis: 1 po QID prn Last Documented On 2 9:22AM By FERNANDO BERMUDEZ ; [facility] Baclofen 10 MG Oral Tablet 03/05/2021 - 06/27/2021 Provider: FERNANDO BERMUDEZ Diagnosis: Multiple scleros is TAKE 1 TABLET BY MOUTH EVERY 6 HOURS NEEDED Last Documented On 2 6:47PM By FERNANDO BERMUDEZ ; [facility] Acetaminophen-Codeine 300-60 MG Oral Tablet 03/04/2021 - 04/08/2021 Provider: FERNANDO BERMUDEZ Diagnosis: Chronic pain syndrome 1 po QID prn Last Documented On 1 11:30AM By FERNANDO BROWN ; [facility] Acetaminophen-Codeine 300-60 MG Oral Tablet 02/04/2021 - 03/04/2021 Provider: FERNANDO BERMUDEZ Diagnosis: 1 po QID prn Last Documented On 1 2:38PM By FERNANDO BERMUDEZ ; [facility] Acetaminophen-Codeine 300-60 MG Oral Tablet 01/04/2021 - 02/04/2021 Provider: FERNANDO BERMUDEZ Diagnosis: Chronic pain syndrome 1 po QID prn Last Documented On 1 2:25PM By FERNANDO BERMUDEZ ; [facility] Baclofen 10 MG Oral Tablet 12/10/2020 - 03/05/2021 Provider: FERNANDO BERMUDEZ Diagnosis: Multiple scleros is TAKE 1 TABLET BY MOUTH EVERY 6 HOURS NEEDED Last Documented On 1 5:21PM By FERNANDO BERMUDEZ ; [facility] Acetaminophen-Codeine 300-60 MG Oral Tablet 12/04/2020 - 01/04/2021 Provider: FERNANDO BERMUDEZ Diagnosis: 1 po QID prn Last Documented On 1 1:00PM By FERNANDO BERMUDEZ ; [facility] Acetaminophen-Codeine 300-60 MG Oral Tablet 10/31/2020 - 12/03/2020 Provider: FERNANDO BERMUDEZ Diagnosis: 1 po QID prn Last Documented On 1 2:52PM By FERNANDO BERMUDEZ ; [facility] Acetaminophen-Codeine 300-60 MG Oral Tablet 10/03/2020 - 10/31/2020 Provider: FERNANDO BERMUDEZ Diagnosis: Multiple scleros is 1 po QID prn Last Documented On 1 3:15PM By FERNANDO BROWN ; [facility] Acetaminophen-Codeine 300-60 MG Oral Tablet 08/30/2020 - 10/03/2020 Provider: FERNANDO BROWN Diagnosis: Multiple scleros is 1 po QID prnto fill 09/01 Last Documented On 1 4:35PM By FERNANDO BROWN ; [facility] Baclofen 10 MG Oral Tablet 08/02/2020 - 12/10/2020 Provider: FERNANDO BROWN Diagnosis: Multiple scleros is TAKE 1 TABLET BY MOUTH EVERY 6 HOURS NEEDED Last Documented On 1 10:17AM By FERNANDO BROWN ; [facility] Acetaminophen-Codeine 300-60 MG Oral Tablet 08/02/2020 - 08/30/2020 Provider: FERNANDO BERMUDEZ Diagnosis: Multiple scleros is 1 po QID prn Last Documented On 1 2:46PM By FERNANDO BROWN ; [facility] Acetaminophen-Codeine 300-60 MG Oral Tablet 07/02/2020 - 08/01/2020 Provider: FERNANDO BROWN Diagnosis: Multiple scleros is 1 po QID prn Last Documented On 1 8:15AM By FERNANDO BROWN ; [facility] Baclofen 10 MG Oral Tablet 05/21/2020 - 08/01/2020 Provider: FERNANDO BROWN Diagnosis: Multiple scleros is TAKE 1 TABLET BY MOUTH EVERY 6 HOURS NEEDED Last Documented On 1 8:15AM By FERNANDO BROWN ; [facility] Acetaminophen-Codeine 300-60 MG Oral Tablet 05/15/2020 - 2020 Provider: FERNANDO BERMUDEZ Diagnosis: Multiple scleros is 1 po QID prn Last Documented On 1 12:05PM By FERNANDO BROWN ; [facility] Baclofen 10 MG Oral Tablet 04/19/2020 - 05/21/2020 Provider: FERNANDO BERMUDEZ Diagnosis: Multiple scleros is TAKE 1 TABLET BY MOUTH EVERY 6 HOURS NEEDED Last Documented On 1 9:20AM By FERNANDO BERMUDEZ ; [facility] HYDROcodone-Acetaminophen 10-325 MG Oral Tablet 03/12/2020 - 03/12/2020 Provider: Diagnosis: Last Documented On 0 10:52AM By Jennyfer Juarez Melodie ; [facility] LORazepam 2 MG Oral Tablet 03/12/2020 - 03/12/2020 Pro vider: Diagnosis: Last Documented On 0 11:39AM By FERNANDO BERMUDEZ ; [facility] Mirtazapine 7.5 MG Oral Tablet 03/12/2020 - 09/10/2021 Provider: Diagnosis: Last Documented On 2 10:49AM By Destiny Lopes Melodie ; [facility] Baclofen 10 MG Oral Tablet 03/12/2020 - 04/19/2020 Provider: FERNANDO BERMUDEZ Diagnosis: Multiple scleros is 1 every 6 hours as needed Last Documented On 0 10:30AM By FERNANDO BERMUDEZ ; [facility] Baclofen 10 MG Oral Tablet 03/12/2020 - 03/12/2020 Pro vider: Diagnosis: Last Documented On 0 2:57PM By FERNANDO BERMUDEZ ; [facility] SUMAtriptan Succinate 100 MG Oral Tablet 03/12/2020 - 06/02/2022 Provider: Diagnosis: Last Documented On 3 9:06AM By Marjan SEGOVIA ; [facility] Acetaminophen-Codeine 300-60 MG Oral Tablet 03/12/2020 - 05/15/2020 Provider: Diagnosis: Last Documented On 1 5:11PM By FERNANDO BERMUDEZ ; [facility] Medications Administered Includes: Administered Medications in patient's chart No Administered Medications Recorded Vital Signs Includes: Vital Signs from 07/07/2023 through 07/06/2024 Vital Name 10/14/2023 08:53A 09/09/2023 08: 30A Temp-Temporal 97.2 96 Height (in) 55 55 Weight (lb) 168 167 Body Mass Index 39 38.8 Body Surface Area 1.6 1.6 Blood Pressure Sitting R 150/94 Pulse Rate-Sitting (bpm) 102 Pain Level 6 Oxygen Saturation (%) 98 Note: IS NOT ON B/P ME DS, NO SX Last Documented: On 10/14/2023 8:53AM ; [facility] On 09/09/2023 8:33AM ; [facility] Results Includes: Results from 07/07/2023 through 07/06/2024 DRUG MONITORING, PANEL 6 WITH CONFIRMATI ON, URINE [employer] Ordered by RHYS WELDON APRN-FPMelodie, WEEKDAY BABYSITTER- BC on 10/14/2023 Collected: 10/14/2023 Reported: 10/26/19 24 16:49 Last Documented On 4 1:23PM ; [facility] Reviewed by FERNANDO ESCALANTE ANP-BC on 11/17/2023; All test results are final unless otherwise noted. Amphetamines NEGATIVE ng/mL (<500) None Last Documented On 4 5:11PM ; [facility] Barbiturates NEGATIVE ng/mL (<300) None Last Documented On 4 5:11PM ; [facility] Benzodiazepines NEGATIVE ng/mL (<100) None Last Documented On 4 5:11PM ; [facility] Marijuana Metabolite POSITIVE ng/mL (<20) A (Abnormal) Last Documented On 4 5:11PM ; [facility] Marijuana Metabolite 502 ng/mL (<5) H (High) Last Documented On 4 5:11PM ; [facility] medMATCH Marijuana Metab INCONSISTENT A (Abnormal) Last Documented On 4 5:11PM ; [facility] Cocaine Metabolite NEGATIVE ng/mL (<150) None Last Documented On 4 5:11PM ; [facility] Methadone Metabolite NEGATIVE ng/mL (<100) None Last Documented On 4 5:11PM ; [facility] Opiates POSITIVE ng/mL (<100) A (Abnormal) Last Documented On 4 5:11PM ; [facility] Codeine >28746 ng/mL (<50) H (High) Last Documented On 4 5:11PM ; [facility] medMATCH Codeine CONSISTENT None Last Documented On 4 5:11PM ; [facility] Morphine 2826 ng/mL (<50) H (High) Last Documented On 4 5:11PM ; [facility] medMATCH Morphine CONSISTENT None Last Documented On 4 5:11PM ; [facility] Hydrocodone NEGATIVE ng/mL (<50) None Last Documented On 4 5:11PM ; [facility] Hydromorphone NEGATIVE ng/mL (<50) None Last Documented On 4 5:11PM ; [facility] Oxycodone NEGATIVE ng/mL (<100) None Last Documented On 4 5:11PM ; [facility] Phencyclidine NEGATIVE ng/mL (<25) None Last Documented On 4 5:11PM ; [facility] Alcohol Metabolites NEGATIVE ng/mL (<500) None Last Documented On 4 5:11PM ; [facility] 6 Acetylmorphine NEGATIVE ng/mL (<10) None Last Documented On 4 5:11PM ; [facility] pH 6.0 (4.5-9.0) None Last Documented On 4 5:11PM ; [facility] Creatinine 53.3 mg/dL (> or = 20.0) None Last Documented On 4 5:11PM ; [facility] Oxidant NEGATIVE mcg/mL (<200) None Last Documented On 4 5:11PM ; [facility] Norhydrocodone 61 ng/mL (<50) H (High) Last Documented On 4 5:11PM ; [facility] medMATCH Norhydrocodone INCONSISTENT A (Abnormal) Last Documented On 4 5:11PM ; [facility] Marijuana Comments See Note None Last Documented On 10/26/2023 5:11PM ; [facility] Note: See Marijuana Notes, LDT Notes Opiates Comments See Note None Last Documented On 10/26/2023 5:11PM ; [facility] Note: See Opiates Notes, LDT Notes DRUG MONITORING TEMPLATE [employer] Ordered by MIKALA BERGER on 10/14/2023 Collected: 10/14/2023 Reported: 10/26/19 24 16:49 Last Documented On 4 1:23PM ; [facility] Reviewed by FERNANDO ESCALANTE [facility] on 11/17/2023; All test results are final unless otherwise noted. Notes and Comments See Note None Last Documented On 10/26/2023 5:11PM ; [facility] Note: This drug testing is [...] analytical performance characteristics have been determined by [employer]. It has not been cleared or approved by the FDA. This assay has been validated pursuant to the CLIA regulations and is used for clinical purposes. medMATCH(R) enables providers to identify if drug useis consistent or inconsistent with a correspondingprescribed medication(s) list. Healthcare Providers needing Interpretation assistance, please contact us at [phone] ( ) M-F, 8am to 10pm EST PRESCRIBED DRUGS, medMATCH(R) [email or web address] Ordered by MIKALA BERGER on 10/14/2023 Collected: 10/14/2023 Reported: 10/26/19 16:49 Last Documented On 4 1:23PM ; [facility] Reviewed by FERNANDO BERMUDEZ on 11/17/2023; All test results are final unless otherwise noted. medMATCH Summary See Note None Last Documented On 10/26/2023 5:11PM ; [facility] Note: Prescribed Prescribed Not Prescribed Consistent Inconsistent Inconsistent Codeine Marijuana Metabolite Norhydrocodone Prescribed Drug 1 Codeine None Last Documented On 5:11PM ; [facility] Reported Physicians [employer] Ordered by RHYS [facility] on 10/14/2023 Collected: 10/14/2023 Reported: 10/26/19 17:52 Last Documented On 4 1:23PM ; [facility] Reviewed by FERNANDO BERMUDEZ on 11/17/2023; All test results are final unless otherwise noted. Reported Physicians See Note None Last Documented On 10/26/2023 5:11PM ; [facility] Note: Reported Physicians:Ordering: Rhys Weldon DRUG MONITORING, PANEL 6 WITH CONFIRMATI ON, URINE [employer] Ordered by FERNANDO BERMUDEZ on Collected: 09/09/2023 Reported: 09/11/19 18:58 Last Documented On 4 10:32AM ; [facility] Reviewed on 09/14/2023; All test results are final unless otherwise noted. Review Note Provider Name Date Pt placed on scheduled for for Random UDS and pill count 09/14/2023 Amphetamines NEGATIVE ng/mL (<500) None Last Documented On 4 7:23PM ; [facility] Barbiturates NEGATIVE ng/mL (<300) None Last Documented On 4 7:23PM ; [facility] Benzodiazepines NEGATIVE ng/mL (<100) None Last Documented On 4 7:23PM ; [facility] Marijuana Metabolite POSITIVE ng/mL (<20) A (Abnormal) Last Documented On 4 7:23PM ; [facility] Marijuana Metabolite 268 ng/mL (<5) H (High) Last Documented On 4 7:23PM ; [facility] medMATCH Marijuana Metab INCONSISTENT A (Abnormal) Last Documented On 4 7:23PM ; [facility] Cocaine Metabolite NEGATIVE ng/mL (<150) None Last Documented On 4 7:23PM ; [facility] Methadone Metabolite NEGATIVE ng/mL (<100) None Last Documented On 4 7:23PM ; [facility] Opiates POSITIVE ng/mL (<100) A (Abnormal) Last Documented On 4 7:23PM ; [facility] Codeine >51671 ng/mL (<50) H (High) Last Documented On 4 7:23PM ; [facility] medMATCH Codeine CONSISTENT None Last Documented On 4 7:23PM ; [facility] Morphine 2068 ng/mL (<50) H (High) Last Documented On 4 7:23PM ; [facility] medMATCH Morphine CONSISTENT None Last Documented On 4 7:23PM ; [facility] Hydrocodone NEGATIVE ng/mL (<50) None Last Documented On 4 7:23PM ; [facility] Hydromorphone NEGATIVE ng/mL (<50) None Last Documented On 4 7:23PM ; [facility] Oxycodone NEGATIVE ng/mL (<100) None Last Documented On 4 7:23PM ; [facility] Phencyclidine NEGATIVE ng/mL (<25) None Last Documented On 4 7:23PM ; [facility] Alcohol Metabolites NEGATIVE ng/mL (<500) None Last Documented On 4 7:23PM ; [facility] 6 Acetylmorphine NEGATIVE ng/mL (<10) None Last Documented On 4 7:23PM ; [facility] pH 7.1 (4.5-9.0) None Last Documented On 4 7:23PM ; [facility] Creatinine 28.8 mg/dL (> or = 20.0) None Last Documented On 4 7:23PM ; [facility] Oxidant NEGATIVE mcg/mL (<200) None Last Documented On 7:23PM ; [facility] Norhydrocodone 54 ng/mL (<50) H (High) Last Documented On 7:23PM ; [facility] medMATCH Norhydrocodone INCONSISTENT A (Abnormal) Last Documented On 7:23PM ; [facility] Marijuana Comments See Note None Last Documented On 09/11/2023 7:23PM ; [facility] Note: See Marijuana Notes, LDT Notes Opiates Comments See Note None Last Documented On 09/11/2023 7:23PM ; [facility] Note: See Opiates Notes, LDT Notes DRUG MONITORING TEMPLATE [employer] Ordered by FERNANDO ESCALANTE [facility]- on Collected: 09/09/2023 Reported: 09/11/19 18:58 Last Documented On 10:32AM ; [facility] Reviewed on 09/14/2023; All test results are final unless otherwise noted. Review Note Provider Name Date Pt placed on scheduled for for Random UDS and pill count 09/14/2023 Notes and Comments See Note None Last Documented On 09/11/2023 7:23PM ; [facility] Note: This drug testing is for medical [...] analytical performance characteristics have been determined by [employer]. It has not been cleared or approved by the FDA. This assay has been validated pursuant to the CLIA regulations and is used for clinical purposes. medMATCH(R) enables providers to identify if drug useis consistent or inconsistent with a correspondingprescribed medication(s) list. Healthcare Providers needing Interpretation assistance, please contact us at [phone] ( ) M-F, 8am to 10pm EST PRESCRIBED DRUGS, medMATCH(R) [employer] Ordered by FERNANDO BERMUDEZ on Collected: 09/09/2023 Reported: 09/11/19 18:58 Last Documented On 4 10:32AM ; [facility] Reviewed on 09/14/2023; All test results are final unless otherwise noted. Review Note Provider Name Date Pt placed on scheduled for for Random UDS and pill count 09/14/2023 Prescribed Drug 6 Codeine None Last Documented On 4 7:23PM ; [facility] medMATCH Summary See Note None Last Documented On 09/11/2023 7:23PM ; [facility] Note: Prescribed Prescribed Not Prescribed Consistent Inconsistent Inconsistent Codeine Marijuana Metabolite Norhydrocodone Reported Physicians [employer] Ordered by FERNANDO RHODES-CARMELLA on Collected: 09/09/2023 Reported: 09/11/19 20:01 Last Documented On 4 10:32AM ; [facility] Reviewed on 09/14/2023; All test results are final unless otherwise noted. Review Note Provider Name Date Pt placed on scheduled for for Random UDS and pill count 09/14/2023 Reported Physicians See Note None Last Documented On 09/11/2023 7:23PM ; [facility] Note: Reported Physicians:Ordering: Fernando Escalante History of Present Illness History of Present Illness not supported for this document type No History of Present Illness Recorded Social History Description Last Updated Current smoker CANNIBIS 06/16/2023 Last Documented On 4 9:11AM ; [facility] Tobacco non-user 07/07/2022 Last Documented On 3 9:22AM ; [facility] Current nonsmoker 07/23/2020 Last Documented On 1 12:26PM ; [facility] No consumption of alcohol 03/12/2020 Last Documented On 0 2:57PM ; [facility] No tobacco use 03/12/2020 Last Documented On 0 2:57PM ; [facility] Using marijuana 03/12/2020 Last Documented On 0 2:57PM ; [facility] Non-smoker 03/12/2020 Last Documented On 0 2:57PM ; [facility] No menarche yet 03/12/2020 Last Documented On 0 2:57PM ; [facility] A high-salt diet not from processed food s 03/12/2020 Last Documented On 0 2:57PM ; [facility] A high-sugar diet not including sweet sn acks 03/12/2020 Last Documented On 0 2:57PM ; [facility] Diet does not need elimination of junk f ood 03/12/2020 Last Documented On 0 2:57PM ; [facility] Diet does not need reduction of caloric intake 03/12/2020 Last Documented On 0 2:57PM ; [facility] Diet provides sufficient food variety Last Documented On 0 2:57PM ; [facility] Diet provides sufficient fruit 0 Last Documented On 0 2:57PM ; [facility] Diet provides sufficient vegetables 02/25 Last Documented On 0 2:57PM ; [facility] No high-fat diet 03/12/2020 Last Documented On 0 2:57PM ; [facility] Smoking Status Unknown Procedures and Surgical History Includes: Procedures from 07/07/2023 through 07/06/2024 Procedures Code Diagnosis Performing Provider Service L ocation Service Date CLINIC VISIT T1015 Chronic pain syndrome, Multiple sclerosis, manager terminal (current) use of opiate analgesic RHYS CHAVEZLP [employer]NA[facility] [place], WEEKDAY BABYSITTER-BC [facility] 10/14/2023 Last Documented On 4 3:42PM ; [facility] CLINIC VISIT T1015 Multiple scleros is, Chronic pain syndrome, manager terminal (current) use of opiate analgesic FERNANDO ESCALANTE ANP-BC [facility] 09/09/2023 Last Documented On 4 11:43AM ; [facility] Medical History Includes: Medical History in patient's chart Description Last Updated Denies a fear of falling. 09/09/2023 Last Documented On 4 9:15AM ; [facility] Has had no fall in the last 12 months. 0 09/09/2023 Last Documented On 4 9:15AM ; [facility] 1 miscarriage(s) 03/12/2020 Last Documented On 0 2:57PM ; [facility] Currently wearing eyeglasses 03/12/2020 Last Documented On 0 2:57PM ; [facility] Previously 2 time(s) 03/12/2020 Last Documented On 0 2:57PM ; [facility] Surgery , tonsilectomy, gallbla dder, apendix, left ovary removal 03/12/2020 Last Documented On 0 2:57PM ; [facility] reviewed and unchanged since last visit 03/12/2020 Last Documented On 0 2:57PM ; [facility] Current toilet training has been complet ed 03/12/2020 Last Documented On 0 2:57PM ; [facility] No previous psychiatric treatment 2019 Last Documented On 0 2:57PM ; [facility] Reported dietary history 03/12/2020 Last Documented On 0 2:57PM ; [facility] Taking medication 03/12/2020 Last Documented On 0 2:57PM ; [facility] Taking vitamin supplements 03/12/2020 Last Documented On 0 2:57PM ; [facility] Family History Includes: Family History in patient's chart Description Last Updated Family history reviewed - unchanged sin e last visit 03/12/2020 Last Documented On 0 2:57PM ; [facility] Family history unchanged 03/12/2020 Last Documented On 0 2:57PM ; [facility] Review of Systems Review of Systems [...] Active Last Documented On 4 8:34AM ; [facility] Encounters Includes: Encounters from 07/07/2023 through 07/06/2024 Encounter Provider Location Date Check-In Time Check-Out Time Diagnosis RX ISSUE/REFILL RHYS Trevino CONY [facility] 10/14/19 24 06/16/2023 9:33AM 11:59PM URINE RECHECK RHYS G CONY [facility]PLE [facility] 10/14/19 24 06/16/2023 9:15AM 8:56AM Chronic Pain Syndrome,Mult iple Sclerosis Brain Stem,Pit Clerk Use of Opiate Analgesic PAIN MANAGEMENT FOLLOW UP FERNANDO ESCALANTE [facility]- 09/09/19 24 06/16/2023 8:30AM 9:20AM Chronic Pain Syndrome,Mult iple Sclerosis Brain Stem,Shelter Use of Opiate Analgesic RX ISSUE/REFILL FERNANDO ESCALANTE [facility] 08/13/19 24 06/16/2023 8:57AM 06/16/2023 11:59PM RX ISSUE/REFILL FERNANDO ESCALANTE [facility] 08/05/19 24 06/16/2023 4:22PM 06/16/2023 11:59PM RX ISSUE/REFILL FERNANDO L MARYANA ANP-BC 07/14/19 24 06/16/2023 9:58AM 06/16/2023 11:59PM Insurance Includes: Active Insurance Policies Plan Name Member ID Group # Subscriber Relationship Effect nba Dates 1 - [facility] [id number] DAPHNE NICOLE Self Clinical Notes Includes: Signed Clinical Notes starting from 05/16/2022 * Progress note Date Encounter Last Documented by 10/14/2023 RX ISSUE/REFILL Last documented on 10/14/2023; 10:24 AM, RHYS WELDON MANAGER SPRING-FPA, WEEKDAY BABYSITTER-BC; [facility] Active Problems & Conditions [...] call: ~Last Drug Screen: 09/08/2023 ~Date/Initials: 10/14/2023 ANCILLARY SERVICES MANAGER THERAPY>. Current Medication - Acetaminophen-Codeine 300-60 MG Oral [...] on 10/14/2023; 9:22 AM, RHYS WELDON APRN-FPA, WEEKDAY BABYSITTER-; [facility] Active Problems & Conditions [...] need a refill in the next week. [place] DRIER AND PULVERIZER TENDER appropriate. Last UDS appropriate, this will be [...] side effects. Symptoms are stable and unchanged. [place] prescription monitoring and UDS have been appropriate. [...] syndrome] Chronic pain syndrome - [Z79.891 - intermediate (current) use of opiate analgesic] intermediate use of opiate analgesic Test Conclusions PHQ-9 [...] medication. F/U 3 months Plan StartCited - intermediate (current) use of opiate analgesic Lab: PRESCRIBED [...] but may be subject to typographical or press feeder errors. Verify all diagnoses, medications, dosages, and [...] ocumented on 09/09/2023; 9:15 AM, FERNANDO BERMUDEZ; [facility] Active Problems & Conditions [...] need a refill in the next week. [place] DRIER AND PULVERIZER TENDER appropriate. Last UDS appropriate, this will be [...] side effects. Symptoms are stable and unchanged. [place] prescription monitoring and UDS have been appropriate. [...] syndrome [G89.4 - Chronic pain syndrome] - manager terminal use of opiate analgesic [Z79.891 - manager terminal (current) use of opiate analgesic] Therapy - [...] medication. F/U 3 months Plan StartCited - intermediate (current) use of opiate analgesic Lab: PRESCRIBED [...] but may be subject to typographical or press feeder errors. Verify all diagnoses, medications, dosages, and [...] on 08/13/2023; 10:43 AM, FERNANDO ESCALANTE ANP-; [facility] Active Problems & Conditions [...] documented on 08/06/2023; 9:52 AM, FERNANDO BERMUDEZ; [facility] Active Problems & Conditions [...] back to insurance to appeal. date/initials: 08/05/2023 ANCILLARY SERVICES MANAGER THERAPY. Past Medical/Surgical History Reported: Surgery , tonsilectomy, [...] documented on 07/14/2023; 12:24 PM, FERNANDO RHODES-; [facility] Active Problems & Conditions [...] ~ pt phone # for Return call: [phone] ~Last Drug Screen:01/21/23 ~Date/Initials: 07/14/23 CB. Past [...]
--- OUTSIDE RECORDS SUMMARY | 2024-07-06 11:05 | XMS_ITS | Clinical Summary ---
Author Organization [facility] ENTER Address [address] [place] [address] Phone Care Team Providers Care Brake Repairer Bus Name Role Phone MelissaHayes blandon Primary Care Provider [phone] Allergies Active Allergy Reactions Criticality Noted Date [...] MINUTES IF NO RESPONSE. 0 9 Active levothyroxine (SYNTHROID) 150 MCG Tablet Take 150 mcg by mouth daily. Active calcium oyster shell 500 MG Tablet 1 Active Aurora-3 Fatty Acids (RA Fish Oil) 1000 MG Capsule Active phenazopyridine (PYRIDIUM) 200 MG Tablet Take 200 mg by mouth. 3 Active valACYclovir (VALTREX) 1 GM Tablet valacyclovir 1 gram tablet TAKE 1 TABLET BY MOUTH EVERY 12 HOURS WITH MEALS FOR 3 DAYS Active Active Problems Problem Noted Date Diagnosed Date Adjustment disorder 11/04/2016 Uses marijuana 11/04/2016 SEAN (generalized anxiety disorder) 10/20/2016 HIV disease Encounters Date Type Department Care Team Description 07/01/2024 3:00 PM [facility] Office Visit [facility] [place] [address] John Zambrano MD Recurrent UTI (Primary Dx) Discharge Disposition: Discharged to home or Selfcare 07/01/2024 Telephone [facility] [address] [place] [address] John Zambrano MD 07/01/2024 Travel from Last 3 Months Family History Medical History Relation Name Comments [...] Sign Reading Time Taken Comments Blood Pressure 149/96 07/01/2024 2:54 PM [facility] Pulse 72 07/01/2024 2:54 PM [facility] Temperature 36.4 C (97.6 F) 04/01/2019 8:26 AM [facility] Respiratory Rate 16 07/01/2024 2:54 PM [facility] Oxygen Saturation 98% 07/01/2024 2:54 PM [facility] Inhaled Oxygen Concentration - - Weight 83.7 kg (184 lb 9.6 oz) 07/01/2024 2:54 P M [facility] Height 165.1 cm (5' 5 ) 07/01/2024 2:54 PM [facility] Body Mass Index 30.72 07/01/2024 2:54 PM [facility] Plan of Treatment Health Maintenance Due Date Last Done Comments TdaP Immunization 1976 Meningococcal Immunization (ACWY) (1 - Risk 2-dose series) 1978 SARS-COV-2 Immunization (#1) 1981 Hepatitis B Immunization (1 of 3 - 19+ 3-dose series) 06/30/1995 Pneumococcal Immunization Combined (1 of 2 - PCV) 06/30/1995 Pap Smear 1997 Cervical Cancer Screening (CCS) 2006 HPV/Cotest 2006 Mammogram 12/25/2019 12/24/2018 Influenza Immunization (#1) 2023 Colonoscopy High Risk 02/01/2029 02/01/2019 Colonoscopy 02/01/2029 02/01/2019 Colorectal Cancer Screening 02/01/2029 Respiratory Syncytial Virus (RSV) Immunization (Adult) (1 - 1-dose 75+ series) 06/30/2051 Discussion re Starting/Frequency of Mammograms Completed 12/24/2018 Hepatitis C Virus (HCV) Screening Completed 08/28/2020, 01/15/2019 Rotavirus Immunization Aged Out No lo nger eligible based on patient's age to complete this topic Procedures Procedure Name Priority Date/Time Associated Diagnosis Comments POCT UA AUTOMATED W/O MICRO Routine 07/01/2024 3:14 PM [facility] Recurrent UTI JAQUELIN,POST-VOID RES,US,NON-IMAGING Routine 07/01/2024 3:00 PM [facility] Recurrent UTI [facility] SCREENING BILATERAL DIGITAL W CAD W JIM Routine 12/24/2018 10:51 AM CDT Encounter for screening mammogram for malignant neoplasm of breast from Last 3 Months or Most Recently Relevant to Health Maintenance Results * POCT UA AUTOMATED W/O MICRO (07/01/2024 3:14 PM [facility]) POC UA SPECIFIC GRAVITY 1.005 URINE PH 6.5 5.0 - 9.0 POC URINE LEUKOCYTES Negative Negative Leticia/uL POC URINE NITRITE Negative Negative POC URINE PROTEIN Negative Negative mg/dL POC URINE GLUCOSE Norm Negative, Norm mg/dL POC URINE KETONE Negative Negative mg/dL POC URINE UROBILINOGEN Norm Norm, 0.2 E.U./dL (mg/dL), 1 E.U./dL (mg/dL) POC URINE BILIRUBIN Negative Negative mg/dL POC URINE BLOOD INSTRUMENT Negative Negative Casey/uL POC URINE COLOR Yellow POC URINE CLARITY Clear Urine 07/01/2024 3:14 PM [facility] POINT OF CARE TESTING (MANUAL) Final Result * JAQUELIN,POST-VOID RES,US,NON-IMAGING (07/01/2024 3:00 PM [facility]) Narrative CurtisStephani cleary - 07/01/2024 3:00 PM [facility] CurtisStephani cleary 07/01/2024 3:50 PM POCT Bladder Scan collected per standing order of Dr. Zambrano on 07/01/2024 PVR= 21 ML John Krishna MD [place] - SURGERY Final Result * [facility] SCREENING BILATERAL DIGITAL W CAD W JIM (12/24/2018 10:51 AM CDT) Anatomical Region Laterality Modality breast Bilateral Mammography 12/24/2018 10:2 9 AM CDT Narrative 12/24/2018 4:19 PM CDT - [facility] SCREENING BILATERAL DIGITAL W CAD W JIM [...] exam. Electronically signed by: Jordan alvarado/penrad:12/24/2018 15:22:34 Facilitator: Tali Baeza (R)), [facility] letter sent: Normal Exam Reading location: [place] [...] exam. Electronically signed by: Jordan alvarado/penrad:12/24/2018 15:22:34 Facilitator: Tali Golden (R)([place]), [facility] letter sent: Normal Exam Reading location: [place] BI-RADS: 1 Negative us Carola Holden RESIDENT PROGRAMS ASSISTANT, CNM IMG MAMMO ORDERABLES Annabelle l Result from Last 3 Months or Most Recently Relevant to Health Maintenance Insurance MEDICAID [place] Care Teams Brake Repairer Bus Relationship Specialty Start Date End Date Hayes Fontanez, PAC [address] [place] [id number] PCP - General Physician Certified Ophthalmic Technologist 11/21/15
--- OUTSIDE RECORDS SUMMARY | 2024-07-06 11:05 | XMS_ITS | Data Portability ---
Author Organization [facility], [address] [facility] Neurology ([place]) Address [address] [address] Care Team Providers Care Cosmetic Sales Name Role Phone CALDERON GODOY Primary Care [...] and concerns. Agreed with plans. Voiced understanding [email or web address] Not available 10/28/2023 14:54:34 01/25/2024 01/25/2024 In [...] with plans. Voiced understanding I understand that [facility] provides telehealth consultations, which are conducted [...] photography, etc.) of my telehealth with a [facility] provider is strictly prohibited. By acknowledging, I certify that I have read this form and/or had it explained to me, that I understand the risks and benefits of a telehealth appointment, that I have been given the opportunity to ask questions and that such questions have been answered to my satisfaction [email or web address] Not available 01/25/2024 09:32:12 05/09/2024 05/09/2024 In [...] with plans. Voiced understanding I understand that [facility] provides telehealth consultations, which are conducted [...] photography, etc.) of my telehealth with a [facility] provider is strictly prohibited. By acknowledging, I certify that I have read this form and/or had it explained to me, that I understand the risks and benefits of a telehealth appointment, that I have been given the opportunity to ask questions and that such questions have been answered to my satisfaction [email or web address] Not available 05/07/2024 10:14:11 Plan of Treatment Reminders Order Date Submit Date Provider Last Modified By Organization Details Last Modified Time Details Appointments Establi shed Patient 20.EST 2024 11:40A M Dr. Cj Ross Not available Not available Not available Lab CBC w/ auto diff 2024 025 Replaced by [facility], [address] [place] [address], [id number], 05/30/2024 07:05:41 CMP, serum or plasma 2024 025 [facility], [address] [place] [address], [id number], 05/30/2024 07:05:41 immunog lobulin s iga+igg +igm, quantit ative, serum 2024 025 [email or web address], [address] [place] [address], [id number], 06/15/2024 08:55:05 urinaly sis complet e, reflex culture 2023 024 [email or web address], [address] [place], [address], 02/22/2024 09:08:19 CBC w/ auto diff 2023 024 [email or web address] [facility], [address] [place] [address], [id number], 02/22/2024 09:08:18 CMP, serum or plasma 2023 024 [email or web address] [facility], [address] [place] [address], [id number], 02/22/2024 09:08:19 vitamin B12, serum 2023 024 [email or web address], [address] [place] [address], [address], 02/22/2024 09:08:19 1,25-di hydroxy vitamin D, QN, serum or plasma 2023 024 [email or web address] [facility], [address] [place] [address], [id number], 02/22/2024 09:08:19 immunog lobulin s iga+igg +igm, quantit ative, serum 2023 024 [email or web address] [facility], [address] [place] [address], [id number], 02/22/2024 09:08:19 urinaly sis complet e, reflex culture 2023 024 LUX [facility], [address] [place] [address], [address], 10/31/2023 12:45:48 Referral None recorde d. Procedures None recorde d. Surgeries None recorde d. Imaging None recorde d. Medication Orders None recorde d. Patient TargetsNo targets recorded. Patient InstructionsNo instructions recorded. Reason for Referral None Reported. Results Created Date Observation Date Name Description Value Unit Range Abnormal Flag Note LastModifiedBy Organization Detail LastModifiedTime 01/19/20 24 01/19/2024 MRI, brain , w/wo contr ast [place] [id number] [address] Teleph one Name: Rogers Sorto [facility] 1687 Exam Date: 2023 Age: 48 Physic ulises: [...] 12:34 PM cc: Page PAGE 1 of [facility] 1 [email or web address] [facility] [address] [place] [address], [id number], 01/20/2024 18:12:04 01/19/20 24 01/19/2024 MRI, cervi linda spine , w/wo contr ast [facility] [address] [place] [address] Tele one [phone] Name: Rogers Sorto [facility] 2962 Exam Date: 2023 Age: 48 Physic ulises: [...] focal osseou s lesion s. 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 Problems Name Problem SNOMED Code Status Onset Date Resolution Date Notes Provider Name and Address Organization Details Recorded Time Multiple sclerosis 65998857 Active 024 Cj vyas MD [address] [place] [address], [address], [facility] 5 13:18:09 Acute urinary tract infection 883865386 Active 024 Cj vyas MD [address] [place] [address], [address], [facility] 4 14:29:36 Problem Notes None recorded. Procedures Surgical History None recorded. Imaging Results Imaging Date Name Status LastModified by Organiz [facility] Details LastModified Time 01/19/2024 MRI, brain, w/wo contrast completed [email or web address] [address] [place] [address], [address], 01/20/2024 18:12:04 01/19/2024 MRI, cervical spine, w/wo contrast completed [email or web address] [facility] [address], [place], [address], 01/20/2024 18:12:04 Procedure Notes None recorded. Medical Equipment None Reported. Allergies Allergen ID Allergen Name Allergen Category Reaction Reaction Severity Criticality Documentation Date Start Date Code Code System Note Provider Name and Address Organization Details Recorded Time 798184 tramadol Not available Not available Not available Not available 05/25/20232022 35351 RxNorm React ion: Other : Can't take with [place] medic ation ; Not Available Not Available Not Available 314113 honey bee venom environme nt other Not available Not available 05/25/20232022 74102 7 RxNorm React ion: Unkno wn to Patie nt; Comme nt: Bee sting ; Not Available Not Available Not Available 563220 wheat gluten extract food other Not available Not available 05/25/20232022 13508 81 RxNorm React ion: Unkno wn to [...] Updated DateTime 4 165.1 cm 28.5 kg/m2 52708.3 g 65 /min 99 % 99 % 122 mm[Hg] 66 mm[Hg] [facility] 4 13:45:41 Social History None recorded. [...] SNOMED-CT Code Diagnosis ICD10 Code Diagnosis Note [id number] [facility] [address] [place] [address] 10/28/2023 13:27:03 10/28/2023 16:35:44 Multiple sclerosis 83704645 G35 Taking hig h risk medication 8567033161 24176 Z91.89 Prophylact ic immunotherapy 470536340 Z29.11 Acute urin joel tract infection 526985632 N39.0 [id number] Cj Ross MD [facility]rology ([place]) [address] [facility],[address] [place] [address] 01/25/2024 09:13:27 01/25/2024 10:00:26 Multiple sclerosis 06210151 G35 Acute urin joel tract infection 124899193 N39.0 Taking hig h risk medication 8884186755 20464 Z91.89 [id number] Cj Ross MD [address] Neurology ([place]) [address] [address] 05/09/2024 12:57:33 05/09/2024 14:12:08 Multiple sclerosis 35295726 G35 Long-term current use of drug therapy 731256544 Z79.899 Health Concerns Section Related Observation LastModified by Organization Detai ls LastModified Time None Recorded Concern Status LastModified by Organization Details LastModified Time None Recorded Advance Directives Directive None Recorded Payers Encounter Date Sequence Insurance Name Policy Number Policy Gaines Covered Member ID Gaines Member ID Guarantor Name 10/28/2023 1 [facility] (MEDICAID HMO) [id number] Magy Maya [id number] Magy Phelps 01/25/2024 1 [facility] (MEDICAID HMO) [id number] Magy Maya [id number] Magy Phelps 05/09/2024 1 [facility] (MEDICAID HMO) [id number] Magy Phelps [facility] [id number] Magy Phelps Notes Date Note Type Note Provider Name and Address Organization Details Recorded Time 10/28/2023 text/html Magy mars is a 47-year-old woman, I am seeing for follow-up regarding MS, and assessment of immunotherapy. 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 She and her have been together 18 years, have 4 children. 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 She does not smoke cigarettes, drink [...] not seen one- referral sent today to [facility] Immunization history: COVID- NOT PLANNING TO GET [...] last infusion was a week ago at [facility] in [place]. Brain and cervical cord MRI in September [...] the last 8 months treated with acyclovir. Hide Stretcher Hand discussed putting her on acyclovir maintenance therapy [...] and urgency. Cj Ross MD [address] [facility], [place], [address], [facility] 11/18/2023 13:48:11 01/25/2024 text/html Magy mars is a 48-year-old woman, I am seeing for follow-up regarding MS, and assessment of immunotherapy. Previous clinic notes 10/28/23Magy is a , homemaker from [facility]. She and her have been together [...] not seen one- referral sent today to [facility] Immunization history: COVID- NOT PLANNING TO GET [...] last infusion was a week ago at [facility] in [place]. Brain and cervical cord MRI in September [...] the last 8 months treated with acyclovir. Hide Stretcher Hand discussed putting her on acyclovir maintenance therapy [...] recent UTI.Labs are usually done at [facility] in [facility]. Cj Ross MD [facility] [place] [address], [address], [facility] 01/26/2024 06:43:00 05/09/2024 text/html Magy mars is a 48-year-old woman, I am seeing for follow-up regarding MS, and assessment of immunotherapy. Previous clinic notes 01/25/24Magy is a , homemaker from [facility]. She and her have been together 18 years, have 4 children. 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 She does not smoke cigarettes, drink [...] not seen one- referral sent today to [facility] Immunization history: COVID- NOT PLANNING TO GET [...] last infusion was a week ago at [facility] in [place]. Brain and cervical cord MRI in September [...] the last 8 months treated with acyclovir. Hide Stretcher Hand discussed putting her on acyclovir maintenance therapy [...] 2023.Denies recent UTI.Labs are usually done at [facility] in [facility]. Interval history 05/09/24Eli presents for follow-up regarding MS, and assessment of immunotherapy. She tolerates Ocrelizumab well without major side effects. Last ocrevus infusion September 2023.She prefers only 1 Ocrevus infusion per yearIn the interval since her last visit, she has had no relapses, no new neurological symptoms, no disease progression.Seeing urology for recurrent UTI. She is also following up with her Hide Stretcher Hand.Wants. to hold off on ocrevus until she sees urology, and get her dental work up. Cj Ross MD [address] , [place], [address], [facility] 05/12/2024 07:03:48 OBGyn Episode No OBEpisode recorded.
--- OUTSIDE RECORDS SUMMARY | 2024-07-06 11:05 | XMS_ITS | Clinical Summary ---
Author Organization [facility] Address [address] [place] [address] Care Team Providers Care Nail Sticker Name Role Phone Hayes Fontanez Primary Care Provider [phone] Cj Ross MD Unavailable [phone] Allergies Active Allergy Reactions Criticality Noted Date Comments Gluten Unknown 12/02/2010 Other Other (See comments) High 01/04/2019 Bee venom, also ALL SSRIs Tramadol Other (See comments) Low 01/18/2019 Tramadol could trigger PML Venom-Honey Bee Unknown 12/02/2010 Medications b complex vitamins capsule Active omega 4-zpt-xna-fish oil 100-160-1,000 mg capsule Active multivitamin tabletIndicatio [...] 11/03/2006 Surgical History Surgery Date Site/Laterality Comments [place] CHOLECYSTECTOM[place] Cholecystectomy - (Added by TW Conv) [place] TONSILLECTOMY PRIMARY/SEC ONDARY <AGE 12 Tonsillectomy - (Added by TW Conv) [place] HYSTEROSCOPY ENDOMETRIAL ABLATION Hysteroscopy With Endometrial Ablation [...] on file 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
== END 2024-07-06 10:00 | disposition home or self-care (01) ==
PROVIDERS: PCP Physician Assistant; Visit Provider Obstetrics & Gynecology
DX: Z12.31 Encounter for screening mammogram for malignant neoplasm of breast (principal)
CPT/HCPCS: 77063; 77067